=== PATIENT | female | born 1935 | race Caucasian/White ===

== ENCOUNTER 2017-05-05 14:16 | Emergency (ER) | payer MEDICARE, OTHER ==
[~2017-05-05] VITALS: Ht 165.1 cm; Wt 67.1 kg
[~2017-05-05 14:16] MED LIST: ACETAMINOPHEN325 M1 PO; ASPIRIN EC81 MG PO; ATENOLOL100 MG PO; ATENOLOL25 MG PO; ATENOLOL50 MG PO; ATIVAN0.5 MG PO; BABY ASPIRIN81 MG PO; BAZA PROTECT C142 GM TP; BISACODYL10 MG RC; CALCIUM500 MG PO; CEPHALEXIN500 MG PO; CIPRO500 MG PO; CLINDAMYCIN HC300 MG PO; COUMADIN1 MG PO; COUMADIN3 MG PO; COUMADIN5 MG PO; DESYREL50 MG PO; DIGOXIN125 MCG PO; DIGOXIN250 MCG PO; DILANTIN100 MG PO; DILTIAZEM 24HR120 M1 PO; DILTIAZEM HCL120 MG PO; DOCUSATE SODIU100 MG PO; DONEPEZIL HCL10 MG PO; DONEPEZIL HCL5 MG PO; ENSURE ORIGINA237 ML PO; FAMOTIDINE20 MG PO; FENTANYL1 EAC2 TD; FLUOXETINE HCL20 MG PO; FUROSEMIDE20 MG PO; KEFLEX500 MG PO; LEVAQUIN500 MG PO; LEVOTHROID175 MCG PO; LEVOTHYROXINE200 MCG PO; MACROBID 100 M100 MG PO; MACRODANTIN100 MG PO; MELOXICAM15 MG PO; MILK OF MA400 MG/5 M PO; NITROSTAT0.4 MG SL; NORCO 5-325 TA1 EACH PO; OMEPRAZOLE20 M1 PO; ONDANSETRON HCL4 MG PO; PEPCID20 MG PO; PHENYTOIN SODI100 MG; POTASSIUM CHLO10 MEQ PO; PRESERVISION A1 EAC2 PO; PRESERVISION A1 EACH PO; SENNA PLUS TAB1 EACH PO; SENOKOT-S TABL1 EACH PO; SEROQUEL50 MG PO; TRAZODONE HCL50 MG PO; VITAMIN D32000 UNI1 PO; VITAMIN D32000 UNIT PO; WARFARIN SODIU2.5 MG PO; WARFARIN SODIUM1 MG PO; WARFARIN SODIUM5 MG PO; ZOFRAN ODT4 MG PO
== END 2017-05-05 16:20 | disposition home or self-care (01) ==
LOC: ED 14:16
DX: F03.90 Unspecified dementia, unspecified severity, without behavioral disturbance, psychotic disturbance, mood disturbance, and anxiety (principal); I48.91 Unspecified atrial fibrillation; Z86.73 Personal history of transient ischemic attack (TIA), and cerebral infarction without residual deficits; E03.9 Hypothyroidism, unspecified; Z90.49 Acquired absence of other specified parts of digestive tract; Z95.0 Presence of cardiac pacemaker; Z79.899 Other long term (current) drug therapy; Z79.01 Long term (current) use of anticoagulants; Z79.891 Long term (current) use of opiate analgesic
CPT/HCPCS: 81001; 99283

== ENCOUNTER 2017-05-26 17:43 | Emergency (ER) | payer MEDICARE, OTHER ==
[~2017-05-26] VITALS: Ht 165.1 cm; Wt 67.1 kg
== END 2017-05-26 19:05 | disposition home or self-care (01) ==
LOC: ED 17:43
DX: S42.201A Unspecified fracture of upper end of right humerus, initial encounter for closed fracture (principal); I48.91 Unspecified atrial fibrillation; G40.909 Epilepsy, unspecified, not intractable, without status epilepticus; E03.9 Hypothyroidism, unspecified; F03.90 Unspecified dementia, unspecified severity, without behavioral disturbance, psychotic disturbance, mood disturbance, and anxiety; Z86.73 Personal history of transient ischemic attack (TIA), and cerebral infarction without residual deficits; Z90.49 Acquired absence of other specified parts of digestive tract; Z79.01 Long term (current) use of anticoagulants; Z79.899 Other long term (current) drug therapy; Z95.0 Presence of cardiac pacemaker; W18.30XA Fall on same level, unspecified, initial encounter
CPT/HCPCS: 73030; 99283

== ENCOUNTER 2017-06-16 20:25 | Emergency (ER) | payer MEDICARE, OTHER ==
[~2017-06-16] VITALS: Ht 165.1 cm; Wt 67.1 kg
== END 2017-06-16 22:18 | disposition home or self-care (01) ==
LOC: ED 20:25
DX: S09.90XA Unspecified injury of head, initial encounter (principal); I48.91 Unspecified atrial fibrillation; E03.9 Hypothyroidism, unspecified; G40.909 Epilepsy, unspecified, not intractable, without status epilepticus; Z86.73 Personal history of transient ischemic attack (TIA), and cerebral infarction without residual deficits; W18.30XA Fall on same level, unspecified, initial encounter; Z90.49 Acquired absence of other specified parts of digestive tract; Z95.0 Presence of cardiac pacemaker; Z79.899 Other long term (current) drug therapy; Z79.01 Long term (current) use of anticoagulants; Z79.891 Long term (current) use of opiate analgesic
CPT/HCPCS: 70450; 99284

== ENCOUNTER 2017-09-27 20:02 | Emergency (ER) | payer MEDICARE, OTHER ==
[~2017-09-27] VITALS: Ht 165.1 cm; Wt 67.1 kg
== END 2017-09-27 23:51 | disposition home or self-care (01) ==
LOC: ED 20:02
DX: S09.90XA Unspecified injury of head, initial encounter (principal); S00.81XA Abrasion of other part of head, initial encounter; G40.909 Epilepsy, unspecified, not intractable, without status epilepticus; I48.91 Unspecified atrial fibrillation; Z79.01 Long term (current) use of anticoagulants; Z86.73 Personal history of transient ischemic attack (TIA), and cerebral infarction without residual deficits; Z85.00 Personal history of malignant neoplasm of unspecified digestive organ; Z87.440 Personal history of urinary (tract) infections; W18.30XA Fall on same level, unspecified, initial encounter
CPT/HCPCS: 70450; 80053; 85025; 85610; 85730; 99284

== ENCOUNTER 2017-10-29 15:14 | Emergency (ER) | payer MEDICARE, OTHER ==
[~2017-10-29] VITALS: Ht 165.1 cm; Wt 60.3 kg
[2017-10-29] MEDS ORDERED: KEFLEX500 MG PO (17:25)
--- NOTE | 2017-10-29 21:25 | EKG ---
[facility] [address] [facility] [place] [address] Signed Ventricular-paced rhythm Abnormal ECG When compared with ECG of 28-MAR-2017 20:10, Electronic ventricular pacemaker has replaced Atrial fibrillation Confirmed by REBUEN SPENCER MD ([id number]) on 10/29/2017 9:25:06 PM Electronically Signed By: REUBEN SPENCER MD 10/29/17 2125 PATIENT NAME: AZALEA POLLARD JEM Electrocardiogram DATE OF : 35 PHYSICIAN: REUBEN SPENCER MD REPORT #: [id number] REPORT IS CONFIDENTIAL AND NOT TO BE RELEASED WITHOUT AUTHORIZATION
== END 2017-10-29 18:05 | disposition home or self-care (01) ==
LOC: ED 15:14
PROC: 0T9B70Z Drainage of Bladder with Drainage Device, Via Natural or Artificial Opening (ICD-10-PCS; principal; 2017-10-29)
DX: N39.0 Urinary tract infection, site not specified (principal); R53.1 Weakness; I48.91 Unspecified atrial fibrillation; G40.909 Epilepsy, unspecified, not intractable, without status epilepticus; E03.9 Hypothyroidism, unspecified; Z87.440 Personal history of urinary (tract) infections; Z90.49 Acquired absence of other specified parts of digestive tract; Z95.0 Presence of cardiac pacemaker; Z79.01 Long term (current) use of anticoagulants; Z86.73 Personal history of transient ischemic attack (TIA), and cerebral infarction without residual deficits; Z79.899 Other long term (current) drug therapy; Z85.00 Personal history of malignant neoplasm of unspecified digestive organ; Z98.890 Other specified postprocedural states
CPT/HCPCS: 51701; 71045; 80053; 80162; 80185; 81001; 84484; 85025; 85610; 87502; 93005; 93010; 96360; 99284; G0480; J7040

== ENCOUNTER 2017-11-29 17:22 | Emergency (ER) | payer MEDICARE, OTHER ==
[~2017-11-29] VITALS: Ht 165.1 cm; Wt 60.3 kg
[2017-11-29] MEDS ORDERED: NORCO 5-325 TA1 EACH PO (17:58)
== END 2017-11-29 20:00 | disposition home or self-care (01) ==
LOC: ED 17:22
PROC: 0T9B70Z Drainage of Bladder with Drainage Device, Via Natural or Artificial Opening (ICD-10-PCS; principal; 2017-11-29)
DX: Z04.3 Encounter for examination and observation following other accident (principal); F03.90 Unspecified dementia, unspecified severity, without behavioral disturbance, psychotic disturbance, mood disturbance, and anxiety; E03.9 Hypothyroidism, unspecified; G40.909 Epilepsy, unspecified, not intractable, without status epilepticus; I48.91 Unspecified atrial fibrillation; Z79.01 Long term (current) use of anticoagulants; Z79.899 Other long term (current) drug therapy; W01.10XA Fall on same level from slipping, tripping and stumbling with subsequent striking against unspecified object, initial encounter
CPT/HCPCS: 51701; 70450; 81001; 99284

== ENCOUNTER 2018-02-04 15:17 | Emergency (ER) | payer MEDICARE, OTHER ==
[~2018-02-04] VITALS: Ht 165.1 cm; Wt 58.5 kg
[2018-02-04] MEDS ORDERED: KEFLEX500 MG PO (16:32)
== END 2018-02-04 17:21 | disposition home or self-care (01) ==
LOC: ED 15:17
PROC: 0T9B70Z Drainage of Bladder with Drainage Device, Via Natural or Artificial Opening (ICD-10-PCS; principal; 2018-02-04)
DX: N39.0 Urinary tract infection, site not specified (principal); F03.90 Unspecified dementia, unspecified severity, without behavioral disturbance, psychotic disturbance, mood disturbance, and anxiety; Z79.899 Other long term (current) drug therapy
CPT/HCPCS: 51701; 70450; 81001; 87077; 87088; 87186; 96372; 99284; J0696

== ENCOUNTER 2018-02-13 10:34 | Inpatient (IN) | payer MEDICARE, OTHER ==
[~2018-02-13] VITALS: Ht 165.1 cm; Wt 66.3 kg
--- NOTE | 2018-02-13 17:50 | NUR ---
PT ARRIVED VIA STRETCHER FROM ED. NON VERBAL AND SEVERE DEMENTIA. PT'S DAUGHTER SURYA AT BEDSIDE TO ASSIST WITH QUESTIONS.
[2018-02-13] MEDS ORDERED: WARFARIN SODIUM2 MG PO (18:16)
--- NOTE | 2018-02-13 19:00 | NUR ---
RECEIVED REPORT FROM RN. PATIENT IS RESTING IN BED, BREATHING IS EVEN AND UNLABORED. O2 SATURATION IS 94% ON L O2 VIA NC. FLACC SCORE OF 0. DAUGHTER AT BEDSIDE AND STATES "SHE LOOKS VEY COMFORTABLE TO ME." FAMILY DENIES NEEDS AT THIS TIME. CALL LIGHT WITHIN REACH.
--- NOTE | 2018-02-13 19:07 | NUR ---
Patient's INR at admission = 1.3. Verified that patient did not missed any doses. Will give warfarin 4mg today as a booster dose. Patient's home warfarin dose is 2mg every day
--- NOTE | 2018-02-13 19:21 | NUR ---
Medications reconciled with Aisha NEWBY and patient's daughter interview
--- NOTE | 2018-02-13 19:22 | NUR ---
Patient vomited this morning shortly after taking morning medications. Questionable degree of absorption.
--- NOTE | 2018-02-13 19:45 | NUR ---
PATIENT RESTING IN BED, BREATHING IS EVEN AND UNLABORED. ASSESSMENT DONE, REPOSITIONED FOR COMFORT. FLACC SCORE OF 0. IV FLUIDS INFUSING. FAMILY DENIES NEEDS AT THIS TIME. CALL LIGHT WITHIN REACH.
--- NOTE | 2018-02-13 20:30 | NUR ---
PATIENT RESTING IN BED, BREATHING IS EVEN AND UNLABORED. FLACC SCORE OF 0. MEDICATIONS GIVEN. FAMILY DENIES FURTHER NEEDS. CALL LIGHT WITHIN REACH.
--- NOTE | 2018-02-13 22:08 | EKG ---
[facility] [address] [facility] [place] [address] Signed Atrial fibrillation with rapid ventricular response Nonspecific ST and T wave abnormality Abnormal ECG When compared with ECG of 29-OCT-2017 16:20, Atrial fibrillation has replaced Electronic ventricular pacemaker Confirmed by REUBEN SPENCER MD ([id number]) on 02/13/2018 10:07:49 PM Electronically Signed By: REUBEN SPENCER MD 02/13/18 2208 PATIENT NAME: AZALEA POLLARD Electrocardiogram DATE OF : 35 PHYSICIAN: REUBEN SPENCER MD REPORT #: [id number] REPORT IS CONFIDENTIAL AND NOT TO BE RELEASED WITHOUT AUTHORIZATION
--- NOTE | 2018-02-13 22:45 | NUR ---
PATIENT RESTING IN BED, BREATHING IS EVEN AND UNLABORED. FLACC SCORE OF 0. APPEARS TO BE ASLEEP. CALL LIGHT WITHIN REACH.
--- NOTE | 2018-02-14 00:01 | NUR ---
SLEEPS OFF AND ON. WILL OCC STRIKE OUT AT STAFF BUT THEN WILL CALM AND AT TIMES IS EASILY CONSOLED WITH HAND HOLDING. REPOSITIONED.
--- NOTE | 2018-02-14 02:00 | NUR ---
PATIENT RESTING IN BED, BREATHING IS EVEN AND UNLABORED. FLACC SCORE OF 0. APPEARS TO BE ASLEEP. CALL LIGHT WITHIN REACH.
--- NOTE | 2018-02-14 04:23 | NUR ---
PT HAS TURNED SELF TO BACK. BREATHS THROUGH MOUTH SO TOUNGUE IS VERY DRY. FELL BACK TO SLEEP
--- NOTE | 2018-02-14 06:04 | NUR ---
ATTEMPTED TO GIVEN SOAP SUDS ENEMA. PT WAS COMBATIVE. WAS UNABLE TO HOLD THE FLUID. STOOL NOTED TO BE VERY SOFT ON THE TUBING AND RECTAL DONE AFTERWARD NO STOOL NOTED IN RECTUM. LINEN CHANGED. PT CALMED AFTERWARD WHEN LEFT ALONE. WHEN PT IS UPSET WILL HIT AT STAFF AND MAKES FACES STICKING TONGUE OUT AT STAFF.
--- NOTE | 2018-02-14 08:03 | NUR ---
PT AWAKE, DRIVER LICENSE AGENT REPORTED IV IN LEFT HAND DC'D WITH CATH INTACT AFTER NOTING INFILTRATION. PT UP TO BSC WITH 2 PERSON ASSIST, UNABLE TO HAVE BM BUT HAS SMEARS OF STOOL. ASSESSMENT COMPLETED AND SPONGE BATH GIVEN, PT TRANSFERRED TO ANA CHAIR WITH 2 PERSON ASSIST, RESTING WITH LOWER EXTREMITIES ELEVATED AND PILLOWS UNDER EACH ARM. PT SHANON WELL.
--- NOTE | 2018-02-14 09:42 | NUR ---
PT ATE A FEW BITES OF BREAKFAST AND WAS ABLE TO AM PILLS. RETURNED TO BED WITH 2 PERSON ASSIST. LEONARDO CARE COMPLETED AND HAND & NAIL CARE ALSOB COMPLETED. 18 GAUGE 2.5 " INSERTED IN LEFT AC BY Earnest CADENA RN.. IV INFUSING WITHOUT PROBLEMS.
--- NOTE | 2018-02-14 09:52 | NUR ---
DAUGHTER IN TO VISIT WITH PT.
--- NOTE | 2018-02-14 11:36 | NUR ---
DULCOLAX SUPPOSITORY GIVEN PER DR. DODSON. PT SHANON WELL. ASSESSMENT COMPLETED, PT RESTING ON LEFT SIDE WITH HOB SLIGHTLY ELEVATED.
--- NOTE | 2018-02-14 12:42 | NUR ---
RECIEVED REPORT VIA TELEPHONE FROM LAUREANO ALVES.
--- NOTE | 2018-02-14 12:57 | NUR ---
REPORT GIVEN TO NADEGE Casillas ON MED/SURG. ATTENDS CHANGED AND PT TRANSFERRED TO ROOM 120 VIA BED.
--- NOTE | 2018-02-14 13:23 | NUR ---
PT TRANSFERED TO FLOOR VIA RECLINER ACCOMPANIED BY LAUREANO SOUSA AT 1300. PT RESTLESS, TRYING TO SCOOT OUT OF RECLINER, PULLING ON IV LINE, THEN ON GAMBINO CATHETER LINE, BOTH REMAIN INTACT. REDIRECTED PT. PT'S DAUGHTER AT BEDSIDE. THIS RN AND MAUDE ARAYA ASSISTED PT UP TO BEDSIDE COMMODE, PT HAD HAD A SMALL LOOSE BM IN ATTENDS, THEN HAD SMALL SOFT TO LOOSE BM IN COMMODE. PT ASSISTED TO CLEAN UP, TRANSFERED BACK TO RECLINER WITH ASSISTANCE FROM THIS RN AND MAUDE ARAYA. PT NOW LESS RESTLESS, IS TAKING BITES OF MASHED POTATOES AND GRAVY FROM DAUGHTER, AND TAKING SIPS OF CHOCOLATE ENSURE. CHAIR ALARM ON, UNDER PT.
--- NOTE | 2018-02-14 13:41 | NUR ---
PT DRINKING CHOCOLATE ENSURE USING STRAW WITH ASSIST FROM DAUGHTER. TOLERATING WELL. PT CALM, NO RESTLESSNESS OR AGITATION NOTED.
--- NOTE | 2018-02-14 13:49 | NUR ---
PATIENT SITTING UP IN CHAIR. PATIENTS DAUGHTER IN ROOM. CALL LIGHT WITHIN REACH. NO OTHER NEEDS AT THIS TIME.
--- NOTE | 2018-02-14 14:37 | NUR ---
PT TOOK PO BISACODYL 5 MG SCHEDULED, WITH APPLESAUCE. PT SITTING UP IN RECLINER. PT'S DAUGHTER AT SIDE.
--- NOTE | 2018-02-14 16:23 | NUR ---
This SIMPLEX OPERATOR and MAUDE Hernandez assisted patient up to bedside commode. Patient had medium bowel movement. Patient wiped down with warm wash cloth. Pericare, and Cathcare performed by MAUDE Hernandez. Patient dressed in clean gown. Perkins drained. Linens changed. Patient transferred with three person assist to bed. Patient has difficulty communicating and expressing words at times. This SIMPLEX OPERATOR provided warm wash cloth, patient's daughter washed patients face and hands at patients request. Chapstick applied to patients lips. Patient resting in bed with daughter in room. Call light in reach. No other needs at this time.
--- NOTE | 2018-02-14 17:47 | NUR ---
I&O AND VITALS DONE RN IN ROOM GAMBINO EMPTIED GARBAGE EMPTIED
--- NOTE | 2018-02-14 17:50 | NUR ---
PT ATE 25% OF DINNER. DRANK 100% OF CHOCOLATE ENSURE. PT ALSO DRANK 100% OF CHOCOLATE ENSURE THIS AFTERNOON. IS IN BED, CALM, EYES OPEN. REQUIRED ASSISTANCE WITH HOLDING GLASS STEADY WHEN DRINKING, TO PREVENT SPILLS, BUT PT HELD CUP WHEN DRINKING. PT NON VERBAL, NO S/S DISTRESS OR DISCOMFORT NOTED. PERSONAL SUPPLIES AND CALL LIGHT IN REACH. CURTAIN AND DOOR OPEN, PT'S ROOM CLOSE TO NURSES' STATION FOR CLOSE OBSERVATION, PT IS CONFUSED AND NON VERBAL AT BASELINE.
--- NOTE | 2018-02-14 18:24 | NUR ---
THIS MARZIPAN MAKER WALKED BY PATIENTS ROOM AND SAW PATIENT'S LEGS OVER THE BED RAIL AND PATIENT WAS LEANING TO GET OUT OF BED. THIS MARZIPAN MAKER CALLED FOR ASSISTANCE AND HELD PATIENTS LEGS TO PREVENT FALLING. RN AND THIS MARZIPAN MAKER REPOSITIONED PATIENT INTO BED. THIS MARZIPAN MAKER NOTICED PATIENT FELT WARM TO TOUCH AND SKIN LOOKED FLUSHED. RN TOOK ORAL TEMP. RN PLACED SEIZURE PAD ON FLOOR OF BEDSIDE AND INSTRUCTED THIS MARZIPAN MAKER TO PLACE SEIZURE PAD ON BED RAILING. BED ALARM ON. RN REQUESTED IT STAY ON EXITING SETTING. PATIENT APPEARED DISTRESSED AND EXIT SEEKING. RN NOTIFIED. PATIENT CALL LIGHT IN REACH. NO OTHER NEEDS AT THIS TIME.
--- NOTE | 2018-02-14 18:28 | NUR ---
PT TRANSFERED FROM CCU TO ROOM 120 THIS AFTERNOON. PT NON VERBAL, MAKES SOUNDS. UNABLE TO ASSESS PT'S ORIENTATION LEVEL. PT'S MOOD RANGED FROM AGITATED AND RESTLESS TO CALM AND COOPERATIVE. 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 PT UP FOR TRANSFERS FROM RECLINER OR BED TO BEDSIDE COMMODE WITH 2 PERSON ASSIST. PT HAS D5LR @ 100 INFUSING. PT HAS HAD SEVERAL MEDIUM, LOOSE BROWN STOOLS. PT INCONTINENT AND USING BEDSIDE COMMODE. HAS GAMBINO CATHETER INTACT, DRAINING CLEAR YELLOW URINE. LUNGS CTA, PT ON RA. HR IRREGULAR, 80s-90s. PT HAS PACER. BED AND CHAIR ALARM USED.
--- NOTE | 2018-02-14 19:24 | NUR ---
IN ROOM FOR REPORT, PT IS AWAKE IN BED AND SHE HAS A VISITOR IN THE ROOM. CALL LIGHT IS WITHIN REACH AND BED ALARM IS ON.
--- NOTE | 2018-02-14 23:01 | NUR ---
ASSESSED PT, SHE IS AWAKE IN BED AT THIS TIME. SHE OCCASIONALLY ANSWERS "YEAH". HER ABDOMEN IS FIRM AND BOWEL TONES ARE HYPERACTIVE. REPOSITIONED PT TO GIVE MEDICATIONS AND SHE YELLS OUT AT STAFF. WILL ATTEMPT TO GIVE PO MEDS.
--- NOTE | 2018-02-14 23:46 | NUR ---
PT IS AWAKE IN BED, SHE DRANK SOME CHOCOLATE ENSURE AND WATER. SHE IS MORE COOPERATIVE AT THIS TIME. CALL LIGHT IS WITHIN REACH AND BED ALARM IS ON.
--- NOTE | 2018-02-15 01:31 | NUR ---
PT IS RESTING WITH EYES CLOSED, RESPIRATIONS ARE EVEN AND NONLABORED. CALL LIGHT IS WITHIN REACH AND BED ALARM IS ON.
--- NOTE | 2018-02-15 03:00 | NUR ---
PT IS AWAKE IN BED AT THIS TIME. BED ALARM IS ON AND CALL LIGHT IS WITHIN REACH.
--- NOTE | 2018-02-15 03:57 | NUR ---
ENTERED PT'S ROOM TO FIND THAT SHE HAD PULLED HER GAMBINO CATHETER OUT AND HAD A SMALL BM AND HAD PULLED HER ATTENDS OFF. CLEANED PT UP AND REPOSITIONED PT IN BED. CATH BALLOON WAS INTACT AND PT PULLED OFF STATLOCK WELL. BED ALARM IS ON AND CALL LIGHT IS WITHIN REACH.
--- NOTE | 2018-02-15 05:43 | NUR ---
PT IS AWAKE IN BED, CHANGED PT'S ATTENDS. ATTEMPTED TO GIVE THYROID MEDICATION BUT PT WILL NOT TAKE IT AT THIS TIME. WILL ATTEMPT AGAIN IN A LITTLE WHILE.
--- NOTE | 2018-02-15 09:00 | NUR ---
PATIENT INCONT OF STOOL IN BED. THIS PETROLEUM ENGINEERING PROFESSOR, LAUREANO GALVAN, AND STUDENT NURSE ASSISTED PATIENT TO SHOWER. LEONARDO CARE, SHAMPOO, LINEN CHANGE DONE. PATIENT INCONT OF STOOL WHILE IN SHOWER. PATIENT TOLARATED SHOWER WELL.
--- NOTE | 2018-02-15 09:00 | NUR ---
PATIENT HAD A LARGE LIQUID BM IN THE BED, ASSISTED PATIENT UP TO THE SHOWER CHAIR FOR A SHOWER AND LINEN CHANGED AT THIS TIME. LEONARDO CARE DONE AND HAIR WASHED. PATIENT HAD MULTIPLE MORE STOOLS IN THE SHOWER.
--- NOTE | 2018-02-15 10:00 | NUR ---
PATIENT TO TOILET FROM SHOWER CHAIR FOR AN ENEMA. RN AND STUDENT NURSE IN BATHROOM WITH PATIENT. PATIENT BACK TO BED. BED ALARM ON AND WARM BLANKET GIVEN.
--- NOTE | 2018-02-15 10:02 | NUR ---
PATIENT HAD ENEMA AND ANOTHER LOOSE STOOL IN THE TOILET. PATIENT ASSISTED BACK TO BED AND SAT UP AND FED HER BREAKFAST.
--- NOTE | 2018-02-15 10:11 | NUR ---
DOCTOR SPENCER IN THE ROOM TO SEE THE PATIENT AT THIS TIME
--- NOTE | 2018-02-15 10:51 | NUR ---
PATIENT TAKEN TO XRAY FOR A KUB AT THIS TIME
--- NOTE | 2018-02-15 11:00 | NUR ---
PATIENT DOWN TO XRAY.
--- NOTE | 2018-02-15 11:46 | NUR ---
PATIENT SITTING UP IN THE CHAIR LOOKING AT A MAGAZINE WITH HER DAUGHER. LUNCH ORDERED AT THIS TIME.
--- NOTE | 2018-02-15 12:40 | NUR ---
PATIENT INCONT OF STOOL THIS CARE SPECIALIST AND LAUREANO GALVAN ASSISTED WITH ATTENDS CHANGE AND LEONARDO CARE THEN BACK TO CHAIR. PATIENTS DAUGHTER IN ROOM.
--- NOTE | 2018-02-15 12:47 | NUR ---
SUPPOSITORY GIVEN, LIQUID STOOL PRESENT UPON INSERTION OF SUPPOSITORY. WET ATTEND CHANGED AT THIS TIME. DAUGHTER ATTEMPTED TO FEED PATIENT WITH NO SUCCESS.
--- NOTE | 2018-02-15 13:18 | NUR ---
PATIENT HAD A LOOSE BM, ATTEND CHANGED LEONARDO CARE DONE AND PATIENT MOVED TO THE COMMODE, SHE HAD A SMALL SOFT BM AND THEN SHE WAS TRANSFERRED TO THE BED.
--- NOTE | 2018-02-15 14:09 | NUR ---
RN AND EXTRACORPOREAL CIRCULATION SPECIALIST IN ROOM WITH THE PATIENT TO CHANGE HER ATTENDS.
--- NOTE | 2018-02-15 14:18 | NUR ---
CHECKED PATIENT'S ATTEND AT THIS TIME, NO RESULTS, PATIENT RESTING ON HER LEFT LATERAL SIDE, RAILS UP, SEIZURE PADS ON THE BED AND ON THE FLOOR. BED IN THE LOW POSITION AND ALARM ON THE BED TURNED ON.
--- NOTE | 2018-02-15 15:14 | NUR ---
PATIENT TURNED FROM SIDE TO SIDE AND DIRTY ATTEND CHANGED. WHEN WIPING PATIENT SHE KICKED AT STAFF AND GRABBED AT HER DAUGHTER AND RN. PATIENT VERY AGGRESSIVE WITH ATTEND CHANGE OR ANY INTERACTION AT THIS TIME.
--- NOTE | 2018-02-15 16:35 | NUR ---
THE PATIENT HAS HAD MULTIPLE SMALL LOOSE BM'S TODAY BUT ACCORDING TO THIS AM'S KUB STILL HAS ALOT OF IMPACTION HIGH IN THE BOWELS. HER BOWEL SOUNDS ARE HYPOACTIVE. SHE HAS NOT HAD AN APPETITE TODAY. SHE PULLED OUT HER GAMBINO LAST NIGHT SO SHE HAS BEEN INCONTENENT OF URINE AND BOWEL TODAY. THE PATIENT HAS RECEIVED A SUPPOSITORY, ENEMA, AND STOOL SOFTNERS WITH MINIMAL RESULTS AFTER EACH OF THEM. DAUGHTER HAS BEEN IN THE ROOM AND IS ALOT OF HELP DUE TO THE PATIENT BEING NONVERBAL.
--- NOTE | 2018-02-15 16:55 | NUR ---
PATIENT FEEDING HERSELF WHAT SHE CAN EAT, HER DAUGHTER IS ALSO ASSISTING HER WITH DINNER, IV ABX HUNG AND RUNNING.
--- NOTE | 2018-02-15 17:30 | NUR ---
PATIENT UP OUT OF BED TO BATHROOM WITH 3 PERSON ASISST. PATIENT GOT UP SET SCREAMED AND THREW HER ARMS AT STAFF WHILE CLEANING HER OFF FROM BM INCONT. PATIENT'S IV SITE INFILTRATED LAUREANO GALVAN REMOVED IV. PATIENT BACK TO BED WHERE STAFF CONTINUED LEONARDO CARE. WARM BLANKET GIVEN. PATIENT CALMED DOWN AND IS RESTING WITH EYES CLOSED. BED ALARM ON. PATIENTS DAUGHTER IN ROOM WITH PATIENT.
--- NOTE | 2018-02-15 17:54 | NUR ---
PATIENT HAD A LARGE LOOSE STOOL, MORE ON THE FLOOR ON THE WAY TO THE BATHROOM. PATIENT AMBULATED WITH 2 PERSON ASSIST FAIRLY WELL. SHE HAD A 3RD BM IN THE TOILET LEONARDO CARE DONE AND FLOOR CLEANED UP. IV IN THE LEFT ARM INFILTRATED. IV REMOVED TIP INTACT. WARM COMPRESS APPLIED. PATIENT THEN TAKEN BACK TO THE BATHROOM FOR A 4TH BM. ALL OF THE STOOL WAS LOOSE WITH 1 LARGE CLUMP IN THE MIDDLE. LINEN CHANGED. GARBAGE IN THE ROOM EMPTIED. NEW IV STARTED IN THE UPPER RIGHT ARM #20 GUAGE.
[2018-02-15] MEDS ORDERED: CEFPODOXIME PR200 MG PO (19:26)
[2018-02-15] MEDS ORDERED: SENNA PLUS TAB1 EACH PO (19:27)
[2018-02-15] MEDS ORDERED: MINERAL OIL EN133 ML PR (19:28)
--- NOTE | 2018-02-15 20:02 | NUR ---
PT AGGITATED, KICKING LEGS OVER SIDE RAILS. REASSURED PT WE WOULD GET HER UP TO THE BATHROOM. SHE SEEMED TO SETTLE DOWN, WITH HELP OF 2 CHARACTER ACTRESS'S, PT WAS GOTTEN UP TO THE COMMODE, PT ASSISTED WITH THE TRANSFER, ABLE TO BEAR WEIGHT, AND FOLLOW DIRECTION. HAD A BM IN THE COMMODE, WELL INCONT BM. ASSISTED BACK TO BED WITH CLEAN BEDDING, AND ATTENDS. PT LAYED WITH EYES CLOSED, ONCE BACK TO BED. IV RIGHT SHOULDER INFUSING PER ORDER, BED RAILS UP, FALL MAT ON FLOOR, AND BED ALARM ON.
--- NOTE | 2018-02-15 21:21 | NUR ---
up to bsc with 3 people assist, continues to have liquid bms. red roz area, lotions to area, pt back to bed, tolerated well. nonverbal, aggressive at times, bed alrm on
--- NOTE | 2018-02-15 22:05 | NUR ---
UP TO BSC USING 3 PEOPLE ASSIST, HAD LIQUID STOOL, SKIN CARE DONE, BACK TO BED, REPOSITIONED IN BED, SEMICOOPERATIVE. BED ALARM ON
--- NOTE | 2018-02-15 23:23 | NUR ---
INCONTINENT OF BOWEL IN BED, SKIN CLEANSED, LINEN AND GOWN CHANGED, PROCEDURE EXPLAINED, PT NOT COOPERATIVE DUE TO CONFUSION
--- NOTE | 2018-02-16 00:34 | NUR ---
RESTING, NO DISTRESS AT THIS TIME, BED ALARM, SEIZURE PADS IN BEDRAILS AND FLOOR IN PLACE
--- NOTE | 2018-02-16 03:31 | NUR ---
AWAKE, MOVING AROUND IN BED. INCONTINENT OF URINE AND BOWEL, UP TO BSC WITH 3 PERSON ASSIST, PROCEDURE EXPLAINED, PT UNABLE TO PROCESS INFORMATION DUE TO DEMENTIA, COOPERATIVE AT TIMES AND AT OTHERS WAS VERY AGGRESSIVE, TRYING TO BITE THIS RN, PULLING MY HAIR AND TRYING TO SCRATCH THIS RN. REDIRECTED. SKIN CARE TO RED AREA BETWEEN BUTTOCKS APPLIED, CLEAN ATTENDS IN PLACE, BACK TO BED, TOLERATED WELL. IVF INFUSING. LEGS ELEVATED, SEIZURE AND HIGH FALL PRECAUTIONS IN PLACE
--- NOTE | 2018-02-16 05:19 | NUR ---
Pt has had multiple liquids bm this shift. Has been incontinent of both bowel and bladder and upt o bsc with 3 people assist. Skin lotion to red buttocks area. All procedures explained to pt. Pt unable to be assess information due to cognitive deficiencies. Has been cooperative and aggressive at times, easily redirectable. Currently in bed resting, has slept 3-4 hours off and on thsi shift. Took meds with applesauce, spit water back at nurse. Sob present with exertion at times, on room air.
--- NOTE | 2018-02-16 06:27 | NUR ---
Dr Ray notified of pts pulling her own iv, "Ok to leave it out" stated
--- NOTE | 2018-02-16 06:41 | NUR ---
PT INCONTINENT OF URINE AND LIQUID BM. BED LINEN, GOWN AND ATTENDS CHANGED, SKIN CARE TO RED LEONARDO AREA APPLIED. PT MORE COOPERATIVE AT THIS TIME. ALL PROCEDURES EXPLAINED TO PT, UNABLE TO ASSESS INFO RECEIVED DUE TO COGNITIVE CHANGES
--- NOTE | 2018-02-16 07:50 | NUR ---
BEDSIDE REPORT RECEIVED FROM JANETTE. ASSUMING PATIENT'S CARE AT THIS TIME. PATIENT RESTING IN BED APPEARED TO BE SLEEPING DURING REPORT. SEIZURE PAD IN PLACE. NO APPAREN DISTRESS NOTED. RR EVEN/UNLABORED.
--- NOTE | 2018-02-16 09:20 | NUR ---
PATIENT RESTING IN BED, NON-VERBAL. PATIENT IS ABLE TO NOD HEAD WHEN TALKING TO. SHIFT ASSESSMENT DONE. ACTIVE BOWEL TONES. TRACE EDEMA NOTED IN THE LOWER EXTREMITIES. PATIENT WAS ABLE TO TAKE HER MORNING MEDS WITH PUDDING WITH A LOT OF COACHING. PATIENT CLEANED EARLIER BY LAUREANO GALVAN AND MAUDE EATON. RESTING IN BED AT THIS TIME. HOB ELEVATED. NO IV SITE AND MD IS AWARE OF THAT. CALL LIGHT IN REACH. BED ALARM ON.
--- NOTE | 2018-02-16 09:41 | NUR ---
VITALS AND I/OS DONE, IN RM WITH LAUREANO HERRON, GIVING MEDS. PATIENT TOOK ONE BITE OF BREAKFAST. CALL LIGHT IN REACH
--- NOTE | 2018-02-16 10:42 | NUR ---
PATIENT RESTING IN BED AWAKE. PATIENT IN NO-VERBAL. CHECKED DEPEND AND BED, NO NEED TO CHANGE AT THIS TIME. WILL CONTINUE TO MONITOR
--- NOTE | 2018-02-16 11:46 | NUR ---
PATIENT RESTING IN BED, DAUGHTER AT BEDSIDE. UPDATED DAUGHTER ON HOW PATIENT DID OVERNIGHT. PATIENT IS AWAKE. NO DISTRESS NOTED
[2018-02-16] MEDS ORDERED: MILK OF MA400 MG/5 M PO (12:12)
[2018-02-16] MEDS ORDERED: SUPPOSITORY1 EACH PR (12:12)
--- NOTE | 2018-02-16 14:45 | NUR ---
PT RESTING IN BED WITH STUFFED ANIMAL BY HER SIDE. DAUGHTER SLICK PRESENT, READING TO PT. PT IS NON-VERBAL, SLICK BELIEVES PT CAN HEAR AND UNDERSTAND, BUT IS UNABLE TO SPEAK. PT SMILES AND SEEMS HAPPY. DAUGHTER REQUESTED PRAYER, WILL CONTINUE TO FOLLOW NEEDED
== END 2018-02-16 13:20 | disposition home or self-care (01) | DRG 872 ==
LOC: ED 10:34 → CCU 17:16 → MS 02-14 13:11
PROVIDERS: ADMIT Internal Medicine
DX: A41.51 Sepsis due to Escherichia coli [E. coli] (principal); N39.0 Urinary tract infection, site not specified; F03.91 Unspecified dementia, unspecified severity, with behavioral disturbance; R65.20 Severe sepsis without septic shock; K59.09 Other constipation; R14.0 Abdominal distension (gaseous); I48.2 Chronic atrial fibrillation; Z79.01 Long term (current) use of anticoagulants; G40.909 Epilepsy, unspecified, not intractable, without status epilepticus; E03.9 Hypothyroidism, unspecified; K21.9 Gastro-esophageal reflux disease without esophagitis; F39 Unspecified mood [affective] disorder; Z86.73 Personal history of transient ischemic attack (TIA), and cerebral infarction without residual deficits; Z95.0 Presence of cardiac pacemaker
CPT/HCPCS: 36415; 71045; 74018; 74177; 80048; 80053; 80162; 80185; 81001; 83605; 83690; 83735; 85025; 85610; 87040; 87077; 87186; 93005; 93010; J0696; J2405; J3475; J7030; J7040; J7120; Q9967

== ENCOUNTER 2018-04-27 10:18 | Emergency (ER) | payer MEDICARE, OTHER ==
[~2018-04-27 10:18] MED LIST changes: +CEFPODOXIME PR200 MG PO; +MINERAL OIL EN133 ML PR; +SUPPOSITORY1 EACH PR; +WARFARIN SODIUM2 MG PO
== END 2018-04-27 12:15 | disposition home or self-care (01) ==
LOC: ED 10:18
PROC: 0T9B70Z Drainage of Bladder with Drainage Device, Via Natural or Artificial Opening (ICD-10-PCS; principal; 2018-04-27)
DX: S09.90XA Unspecified injury of head, initial encounter (principal); S00.01XA Abrasion of scalp, initial encounter; F03.90 Unspecified dementia, unspecified severity, without behavioral disturbance, psychotic disturbance, mood disturbance, and anxiety; I48.2 Chronic atrial fibrillation; E03.9 Hypothyroidism, unspecified; G40.909 Epilepsy, unspecified, not intractable, without status epilepticus; Z79.01 Long term (current) use of anticoagulants; Z79.899 Other long term (current) drug therapy; W18.30XA Fall on same level, unspecified, initial encounter
CPT/HCPCS: 51701; 70450; 80053; 81001; 85025; 85610; 99284

== ENCOUNTER 2018-06-17 21:52 | Emergency (ER) | payer MEDICARE, OTHER ==
[~2018-06-17] VITALS: Ht 165.1 cm; Wt 66.3 kg
[2018-06-18] MEDS ORDERED: CEPHALEXIN500 MG PO (00:43)
[2018-06-18] MEDS ORDERED: ATENOLOL25 MG PO (17:27)
[2018-06-18] MEDS ORDERED: QUETIAPINE FUMA50 MG PO (17:44)
[2018-06-18] MEDS ORDERED: PHENYTOIN SODI100 MG PO (17:45)
[2018-06-18] MEDS ORDERED: OMEPRAZOLE20 MG PO (17:45)
[2018-06-18] MEDS ORDERED: LEVOXYL200 MCG PO (17:47)
[2018-06-18] MEDS ORDERED: NORCO 5-325 TA1 EACH PO (17:48)
[2018-06-18] MEDS ORDERED: FLUOXETINE HCL20 M1 PO (17:49)
[2018-06-19] MEDS ORDERED: CALCIUM500 M1 PO (10:36)
[2018-06-19] MEDS ORDERED: DIGOXIN250 MCG PO (10:38)
[2018-06-19] MEDS ORDERED: COLACE100 MG PO (10:39)
[2018-06-19] MEDS ORDERED: ARICEPT10 MG PO (10:40)
[2018-06-19] MEDS ORDERED: PHENYTOIN SODI100 MG PO (10:43)
[2018-06-19] MEDS ORDERED: PRESERVISION A1 EACH PO (10:44)
[2018-06-19] MEDS ORDERED: VITAMIN D32000 UNIT PO (10:48)
[2018-06-19] MEDS ORDERED: ADULT GLYCERIN1 EACH PR (10:50)
[2018-06-19] MEDS ORDERED: MILK OF MA400 MG/5 M PO (10:51)
[2018-06-19] MEDS ORDERED: MINERAL OIL EN133 ML PR (10:52)
[2018-06-19] MEDS ORDERED: PREPARATION H C26 GM PR (10:55)
[2018-06-19] MEDS ORDERED: SENNA-DOCUSATE1 EAC1 PO (10:56)
[2018-06-19] MEDS ORDERED: COUMADIN3 MG PO (10:57)
[2018-06-19] MEDS ORDERED: KEFLEX500 MG PO (10:59)
== END 2018-06-18 01:26 | disposition home or self-care (01) ==
LOC: ED 21:52
PROC: 0T9B70Z Drainage of Bladder with Drainage Device, Via Natural or Artificial Opening (ICD-10-PCS; principal; 2018-06-17)
DX: S00.83XA Contusion of other part of head, initial encounter (principal); W18.30XA Fall on same level, unspecified, initial encounter; I48.91 Unspecified atrial fibrillation; G43.909 Migraine, unspecified, not intractable, without status migrainosus; E03.9 Hypothyroidism, unspecified; F03.90 Unspecified dementia, unspecified severity, without behavioral disturbance, psychotic disturbance, mood disturbance, and anxiety; Z79.899 Other long term (current) drug therapy; Z79.01 Long term (current) use of anticoagulants
CPT/HCPCS: 51701; 70450; 80053; 81001; 85025; 85610; 99284

== ENCOUNTER 2018-06-18 02:39 | Emergency (ER) | payer MEDICARE, OTHER ==
[~2018-06-18] VITALS: Ht 165.1 cm; Wt 66.3 kg
[2018-06-18] MEDS ORDERED: ATENOLOL25 MG PO (17:27)
[2018-06-18] MEDS ORDERED: QUETIAPINE FUMA50 MG PO (17:44)
[2018-06-18] MEDS ORDERED: PHENYTOIN SODI100 MG PO (17:45)
[2018-06-18] MEDS ORDERED: OMEPRAZOLE20 MG PO (17:45)
[2018-06-18] MEDS ORDERED: LEVOXYL200 MCG PO (17:47)
[2018-06-18] MEDS ORDERED: NORCO 5-325 TA1 EACH PO (17:48)
[2018-06-18] MEDS ORDERED: FLUOXETINE HCL20 M1 PO (17:49)
[2018-06-19] MEDS ORDERED: CALCIUM500 M1 PO (10:36)
[2018-06-19] MEDS ORDERED: DIGOXIN250 MCG PO (10:38)
[2018-06-19] MEDS ORDERED: COLACE100 MG PO (10:39)
[2018-06-19] MEDS ORDERED: ARICEPT10 MG PO (10:40)
[2018-06-19] MEDS ORDERED: PHENYTOIN SODI100 MG PO (10:43)
[2018-06-19] MEDS ORDERED: PRESERVISION A1 EACH PO (10:44)
[2018-06-19] MEDS ORDERED: VITAMIN D32000 UNIT PO (10:48)
[2018-06-19] MEDS ORDERED: ADULT GLYCERIN1 EACH PR (10:50)
[2018-06-19] MEDS ORDERED: MILK OF MA400 MG/5 M PO (10:51)
[2018-06-19] MEDS ORDERED: MINERAL OIL EN133 ML PR (10:52)
[2018-06-19] MEDS ORDERED: PREPARATION H C26 GM PR (10:55)
[2018-06-19] MEDS ORDERED: SENNA-DOCUSATE1 EAC1 PO (10:56)
[2018-06-19] MEDS ORDERED: COUMADIN3 MG PO (10:57)
[2018-06-19] MEDS ORDERED: KEFLEX500 MG PO (10:59)
== END 2018-06-18 03:57 | disposition home or self-care (01) ==
LOC: ED 02:39
PROC: 0HQ1XZZ Repair Face Skin, External Approach (ICD-10-PCS; principal; 2018-06-18)
DX: S01.412A Laceration without foreign body of left cheek and temporomandibular area, initial encounter (principal); W19.XXXA Unspecified fall, initial encounter
CPT/HCPCS: 12011; 99284

== ENCOUNTER 2018-06-23 12:19 | Inpatient (IN) | payer MEDICARE, OTHER ==
[~2018-06-23] VITALS: Ht 165.1 cm; Wt 61.5 kg
--- NOTE | 2018-06-23 11:54 | NUR ---
[facility] IN [place] CALLED AND STATED THEY WOULD COME EVALUATE PT BEFORE THEY COULD ACCEPT HER.
--- NOTE | 2018-06-23 11:56 | NUR ---
[facility] STATED THEY WOULD WAIT TO EVALUATE PT THE PT THEY THOUGHT THEY HAD GOING HOME TODAY DID NOT AND WOULD NOT BE LEAVING UNTIL TUE OF NEXT WEEK. THEY WILL EVALUATE PT BEFORE SHE CAN COME TO THEIR FACILITY.
[~2018-06-23 12:19] MED LIST changes: +ADULT GLYCERIN1 EACH PR; +ARICEPT10 MG PO; +CALCIUM500 M1 PO; +COLACE100 MG PO; +COUMADIN4 MG PO; +FLUOXETINE HCL20 M1 PO; +LEVOXYL200 MCG PO; +OMEPRAZOLE20 MG PO; +PHENYTOIN SODI100 MG PO; +PREPARATION H C26 GM PR; +QUETIAPINE FUMA50 MG PO; +SENNA-DOCUSATE1 EAC1 PO
--- NOTE | 2018-06-23 12:35 | NUR ---
PATIENT CHANGED TO [facility] BED. PATIENTS DAUGHTER IN ROOM. ASSESSMENT COMPLETE. AWAITING TO WORK WITH PT. BED ALARM IN PLACE.
--- NOTE | 2018-06-23 13:46 | NUR ---
PHYSICAL THERAPY IN ROOM WITH PATIENT.
--- NOTE | 2018-06-23 14:04 | NUR ---
BAHMAN AMBULATED WITH PHYSICAL THERAPY. PATIENT WAS A TWO PERSON MINIMAL ASSIST INT HE [place]. PATIENT DID NOT FOLLOW COMMANDS BUT WAS ABLE TO TOLERATE ACTIVITY. PATIENT HAS AN UNBALANCED GAIT. NEEDING ASSIST, BUT ABLE TO TOLERATE ACTIVITY. AMBULATING MORE TODAY THAN YESTERDAY
--- NOTE | 2018-06-23 15:46 | NUR ---
PATIENT SAT UP IN BED. GIVEN CHOCOLATE PUDDING. PATIENT TOLERATING BITES. GAVE MEDICATION. PATIENT DOING WELL WITH SWALLOW. DRINKING ICE WATER AT THIS TIME.
--- NOTE | 2018-06-23 16:13 | NUR ---
changed patients attends. patient had incont wet attends. repositioned in bed. no other needs at this time. call light on bed. patient has bed alarm in place.
--- NOTE | 2018-06-23 16:42 | NUR ---
SWALLOW EVALUATION ATTEMPTED; PT UNWILLING/UNABLE TO PARTICIPATE IN ENOUGH TRIALS/TASKS IN ORDER TO SUCCESSFULLY EVALUATE ABILITIES. PT NONVERBAL; HOWEVER, DURING VOCALIZATIONS, PT OBSERVED TO HAVE WET VOCAL QUALITY. PT DEMONSTRATED WILLINGNESS/ABILITY TO PARTICIPATE IN ONE TEXTURE TRIAL (JELLO) WHICH PATIENT MASTICATED AND SWALLOWED WITH NO OVERT S/S ASPIRATION/PENETRATION. SWALLOW EVALUATION CAN BE ATTEMPTED AT A LATER TIME.
--- NOTE | 2018-06-23 17:39 | NUR ---
changed patients attends. patient was incont of urine. set up for dinner. patient taking drinks of ensure and bites of mash potatoes and pudding.
--- NOTE | 2018-06-23 17:50 | NUR ---
PATIENT CURRENTLY SWG BED. WORKING WITH PT, OT, AND ST. PATIENT TOLERATED AMBULATING IN [place] WITH MINIMAL 2 ASSIST. ALMOST AN ENTIRE LAP. BED ALARM NEEDS TO BE IN PLACE. INCONT OF STOOL AND URINE. PATIENT REQUIRES FEEDING WITH MEALS. BAHMAN HAS HAD 3 ENSURES TODAY. SHE LIKES CHOCOLATE PUDDING AND ENSURE. STUFFED ANIMAL AT BEDSIDE. TAKING MEDS TODAY CRUSHED IN PUDDING.
--- NOTE | 2018-06-23 19:45 | NUR ---
REPORT RECIEVED FROM DAY SHIFT RN. PT BEING WHEELED AROUND HALLS WITH LOOM CHECKER. NO REQUESTS AT THIS TIME.
--- NOTE | 2018-06-23 20:04 | NUR ---
PATIENT PLEASANT AND SEEMS CONTENT AND WITHOUT PAINN. LAUREANO BREWER AT BEDSIDE.
--- NOTE | 2018-06-23 20:10 | NUR ---
WALKED WITH PT USING A WHEELCHAIR AROUND THE [facility] FLOOR SEVERAL TIMES. GOT HER BACK INTO BED WITH THE HELP OF LAUREANO OBRIEN.
--- NOTE | 2018-06-23 21:46 | NUR ---
GUM COOK MAGO, PT LYING IN BED PULLING AT BLANKETS. RNDANIELLA, 1:1 WITH PT AT THIS TIME. PADS TO RAILS AND FLOOR. BED ALARM ACTIVE. ROOM WITH VIEW OF NURSES STATION WITH CURTAIN OPEN.
--- NOTE | 2018-06-23 22:23 | NUR ---
PT IN BED RESTING AND WATCHING TELEVISION. CALL LIGHT WITHIN REACH. SEIZURE PADS IN PLACE. BED ALARM ON. NO REQUESTS AT THIS TIME. THIS RN REMAINS AT BEDSIDE.
--- NOTE | 2018-06-23 23:50 | NUR ---
WITH THE HELP OF LAUREANO BREWER WE CHANGED PT ATTENDS IMCONTINENT WITH URINE AND A SMEAR OF BM. ADJUSTED HER IN BED. TWO WARM BLANKETS GIVEN.
--- NOTE | 2018-06-24 01:26 | NUR ---
PT ASLEEP IN BED. CALL LIGHT WITHIN REACH. SEIZURE PADS IN PLACE. BED ALARM ON. BED IN LOW POSITION. NO REQUESTS AT THIS TIME.
--- NOTE | 2018-06-24 02:54 | NUR ---
WITH THE HELP OF LAUREANO BREWER WE CHANGED HER ATTEND INCONTINENT WITH URINE. CHANGED HER GOWN. TWO WARM BLANKETS GIVEN.
--- NOTE | 2018-06-24 03:29 | NUR ---
PT HAD TAKEN OFF HER GOWN AND ATTEND. WITH THE HELP OF LAUREANO BREWER WE GOT HER DRESSED AGAIN. WE GOT HER INTO A WHEELCHAIR AND PUSHED HER AROUND [facility] IN [place] TO CALM HER. SHE SMILED AND LAUGHED.
--- NOTE | 2018-06-24 04:46 | NUR ---
PT RESTING IN BED SLEEPING. CALL LIGHT WITHIN REACH. BED ALARM ON. SEIZURE PADS IN PLACE. NO REQUESTS AT THIS TIME.
--- NOTE | 2018-06-24 05:24 | NUR ---
I&OS DONE AND CHARTED
--- NOTE | 2018-06-24 06:37 | NUR ---
PT REMAINS SWING BED. PT DID NOT SLEEP MUCH THROUGHOUT THE NIGHT AND WAS FREQUENTLY INCONTINENT OF URINE WELL STOOL. BED ALARM NEEDS TO BE IN PLACE PT WILL ATTEMPT TO GET OUT OF BED. PT WAS TRANSFERRED FROM BED TO WITH 2PA. PT REMAINS AOX0, AND UNABLE TO COMMUNICATE EFFECTIVELY OR FOLLOW COMMANDS. PT ON CLEAR LIQUIDS WITH ENSURE PER ORDERS. SEIZURE PADS ON BED WITH RAILS UP.
--- NOTE | 2018-06-24 08:25 | NUR ---
PT RESTING COMFORTABLY IN HER BED AT THIS TIME. NO SIGNS OF PAIN OR DISCOMFORT. SEE NONVERBAL PAIN SCALE IN ASSESSMENT DOCUMENTATION (SCORED A 0). PT IS NONVERBAL WHICH IS HER BASELINE. TAMMI A COMPLETE NEURO ASSESSMENT BECAUSE OF THIS. PT MOANS AND GIGGLES WITH ME. ASSESSMENT COMPLETED AND MEDS GIVEN CRUSHED WITH HER BREAKFAST AT THIS TIME. PT HAS POOR PO INTAKE; SHE REQUIRES COMPLETE ASSISTANCE WITH EATING, BUT ONLY TOOK A FEW BITES BEFORE CLOSING HER MOUTH SHUT TIGHTLY, REFUSING ANY MORE BITES OR DRINKS OF HER ENSURE. ROOM AIR. NO IV. SWING BED STATUS. VSS. Q2HR REPOSITIONING AND TURNS ENCOURAGED ALTHOUGH SHE MOVES AROUND AND TURNS IN HER BED ON HER OWN FREQUENTLY. CALL LIGHT WITHIN REACH. SEIZURE PADS IN PLACE. BED LOCKED IN LOWEST POSITION WITH BED ALARM ON. VISIBLE FROM NURSES STATION. WILL CONTINUE TO MONITOR.
--- NOTE | 2018-06-24 08:41 | NUR ---
PATEINT IN BED, NURSE FEEDING HER BREAKFAST, AM CARE DONE BY MAUDE ROY
--- NOTE | 2018-06-24 10:18 | NUR ---
patient had bedbath jacki bernard asssited with the bedbath linens were hanged and she got a shampoo cap, she is currently resting in bed
--- NOTE | 2018-06-24 10:18 | NUR ---
PT LAYING IN BED WITH HER EYES SHUT, RESTING COMFORTABLY AT THIS TIME. NO SIGNS OF PAIN OR DISCOMFORT. CALL LIGHT WITHIN REACH. SEIZURE PADS IN PLACE. BED LOCKED IN LOWEST POSITION WITH BED ALARM ON. VISIBLE FROM NURSES STATION. WILL CONTINUE TO MONITOR.
--- NOTE | 2018-06-24 11:32 | NUR ---
PT ASSISTED UP TO COMMODE. BRIEF CHANGED AFTER INCONTINENCE. MEDIUM SIZED BM AT THIS TIME. PT ASSISTED INTO CHAIR. SHE IS CURRENTLY SITTING UP IN HER CHAIR COMFORTABLY WITH CHAIR ALARM ON. NO SIGNS OF PAIN OR DISCOMFORT. SHE IS PLEASANT AND SMILING. CALL LIGHT WITHIN REACH AND PT VISIBLE FROM NURSES STATION. WILL CONTINUE TO MONITOR.
--- NOTE | 2018-06-24 12:13 | NUR ---
PT SITTING UP IN CHAIR COMFORTABLY AT THIS TIME WITH NO SIGNS OF DISCOMFORT OR PAIN. RT IN ROOM COMPLETING ORDERED EKG. DAUGHTER JUST ARRIVED AND IS SITTING NEXT TO PT. NO QUESTIONS OR CONCERNS BY DAUGHTER AT THIS TIME. I UPDATED HER ON PT CONDITION AND PLAN OF CARE. SHE STATES SHE IS ASSISTING PT WITH LUNCH ONCE EKG COMPLETED. CALL LIGHT WITHIN REACH. CHAIR LOCKED WITH ALARM IN PLACE. FALL PRECAUTIONS IN PLACE. VISIBLE FROM NURSES STATION. WILL CONTINUE TO MONITOR.
--- NOTE | 2018-06-24 13:50 | NUR ---
PT BACK IN CHAIR AT THIS TIME AFTER HAVING A LONG WALK WITH THIS RN AND PHYSICAL THERAPIST IN HALLWAY, WITH DAUGHTER FOLLOWING BEHIND WITH WHEELCHAIR. PT SMILING AND SHOWS NO SIGNS OF DISCOMFORT OR PAIN. I WILL, HOWEVER, STILL GIVE PRN TYLENOL TO COVER ANY SORENESS SHE MIGHT START HAVING FROM HER WORKOUT. CHAIR ALARM ON AND LOCKED. DAUGHTER AT HER SIDE. CALL LIGHT IN REACH AND FALL PRECAUTIONS IN PLACE. WILL CONTINUE TO MONITOR.
--- NOTE | 2018-06-24 14:00 | NUR ---
TYLENOL GIVEN AT THIS TIME. PT PLEASANT AND UP IN CHAIR WITH CHAIR ALARM ON. DAUGHTER STILL AT HER SIDE. ALL FALL PRECAUTIONS IN PLACE. WILL CONTINUE TO MONITOR.
--- NOTE | 2018-06-24 15:14 | NUR ---
PT BACK IN BED FOR THE FIRST TIME SINCE THIS MORNING, RESTING COMFORTABLY WITH HER EYES CLOSED WITH NO SIGNS OF PAIN OR DISCOMFORT. DAUGHTER REMAINS AT THE BEDSIDE. CALL LIGHT WITHIN REACH. SEIZURE PADS IN PLACE. BED LOCKED IN LOWEST POSITION WITH ALARM ON. VISISBLE FROM NURSES STATION. WILL CONTINUE TO MONITOR.
--- NOTE | 2018-06-24 16:12 | NUR ---
PT RESTING IN BED COMFORTABLY AT THIS TIME WITH NO SIGNS OF DISCOMFORT OR PAIN. HER DAUGHTER HAS LEFT FOR THE DAY. PT CALM AND STILL. CALL LIGHT WITHIN REACH. BED LOCKED IN LOWEST POSITION WITH BED ALARM ON. SEIZURE PADS IN PLACE. VISIBLE FROM NURSES STATION. WILL CONTINUE TO MONITOR.
--- NOTE | 2018-06-24 16:45 | NUR ---
PT BECAME VERY RESTLESS AND AGITATED AT THIS TIME, SWINGING HER ARMS AT STAFF, TRYING TO CRAWL OUT OF BED, AND SCREAMING. THIS RN AND ALUMNI RELATIONS COORDINATOR STAFF TOOK PT ON NUMEROUS LOOPS AROUND THE UNIT IN A WHEELCHAIR WHICH CALMED HER DOWN. HER SON ARRIVED ONTO THE UNIT SHE WAS BEING WHEELED AROUND THE UNIT. SHE IS NOW BACK IN BED, CALM AND SMILING. NO LONGER AGITATED. CALL LIGHT WITHIN REACH. BED LOCKED IN LOWEST POSITION WITH BED ALARM ON. SEIZURE PADS IN PLACE. FALL PRECAUTIONS IN PLACE. VISIBLE FROM NURSES STATION. WILL CONTINUE TO MONITOR.
--- NOTE | 2018-06-24 17:33 | NUR ---
PT VS AND CONDITION STABLE TODAY ON 06/24/18 DAY SHIFT. FOR MAJORITY OF THE SHIFT, PT WAS PLEASANT, CALM AND COOPERATIVE, SMILING AND GIGGLING WITH STAFF. NONVERBAL AND ADVANCED DEMENTIA AT BASELINE. TAMMI COMPLETE NEURO ASSESSMENT DUE TO COGNITION. ROOM AIR. NO IV. UP IN CHAIR MAJORITY OF THE SHIFT, AMBULATED WITH THIS RN AND PHYSICAL THERAPIST IN [facility] TODAY. INCONT THROUGHOUT SHIFT; CHANGED ATTENDS THROUGHOUT SHIFT NEEDED. THIS EVENING PT BECAME AGITATED AND RESTLESS, HARD TO CONSOLE SO WE WHEELED HER AROUND IN HALLWAY WITH WHEELCHAIR WHICH CALMED HER DOWN. SHE IS NOW RESTING IN BED COMFORTABLY WITH HER SON AT HER SIDE. MEDS CRUSHED IN PUDDING. EKG COMPLETED AND READ BY DR. SPENCER EARLIER TODAY. NO CURRENT QUESTIONS OR CONCERNS BY SON. PT SHOWS NO SIGNS OF PAIN OR DISCOMFORT AT THIS TIME. CALL LIGHT WITHIN REACH. BED LOCKED IN LOWEST POSITION WITH BED ALARM ON. SEIZURE PADS IN PLACE. VISIBLE FROM NURSES STATION. WILL CONTINUE TO MONITOR.
--- NOTE | 2018-06-24 18:47 | NUR ---
PATIENT RESTING IN BED. I&O TAKEN. DIAPER CHANGED. CALL LIGHT WITHIN REACH. NO MORE NEEDS AT THIS TIME.
--- NOTE | 2018-06-24 19:00 | NUR ---
SHIFT REPORT RECEIVED. PATIENT RESTING IN BED. SEIZURE PADS IN PLACE FOR SAFETY. BED ALARM ON.
--- NOTE | 2018-06-24 19:54 | NUR ---
VITALS AND I&OS DONE AND CHARTED. CLEANED UP ROOM.
--- NOTE | 2018-06-24 20:30 | NUR ---
PT WAS TURNED SIDEWAYS IN BED, REPOSITIONED HER. BED ALARM IS ON.
--- NOTE | 2018-06-24 20:50 | EKG ---
[facility] [address] [place] [address] Signed Atrial fibrillation Abnormal ECG When compared with ECG of 19-JUN-2018 12:59, No significant change was found Confirmed by REUBEN SPENCER MD ([id number]) on 06/24/2018 8:50:39 PM Electronically Signed By: REUBEN SPENCER MD 06/24/[id number] PATIENT NAME: AZALEA POLLARD Electrocardiogram DATE OF : 35 PHYSICIAN: REUBEN SPENCER MD REPORT #: [id number] REPORT IS CONFIDENTIAL AND NOT TO BE RELEASED WITHOUT AUTHORIZATION
--- NOTE | 2018-06-24 21:22 | NUR ---
PATIENT APPEARS TO BE SLEEPING SOUNDLY. RR 18. BED ALARM ON. FAMILY IN ROOM.
--- NOTE | 2018-06-24 23:15 | NUR ---
PATIENT'S ATTENDS WET. ASSISTED TO CHANGE ATTENDS AND BED LINEN. BERRIER CREAM APPLIED. PATIENT SKIN INTACT, SOME REDNESS NOTED ON LEFT HIP WHERE ATTENDS STRAP HAD BEEN. POSITIONED PATIENT FOR COMFORT. BED ALARM ON. PATIENT TOLERATED WELL.
--- NOTE | 2018-06-25 02:00 | NUR ---
PATIENT'S ATTENDS WET. 2PA TO CHANGE HER. PATIENT TOLERATED WELL. POSITIONED FOR COMFORT. BED ALARM ON.
--- NOTE | 2018-06-25 04:30 | NUR ---
PATIENT BECOMING MORE RESTLESS. ATTEMPTING TO CLIMB OUT OF THE BED. PATIENT'S ATTEND WAS WET AND ALSO SMALL BM. LEONARDO CARE PERFORMED. BARRIER CREAM APPLIED. POSITIONED FOR COMFORT. BED ALARM ON.
--- NOTE | 2018-06-25 04:45 | NUR ---
PATIENT CONTINUES TO BE RESTLESS. MAUDE HEMPHILL ASSISTED PATIENT INTO UNIT WC WITH ASSIST OF DANIELLA TINSLEY. JOBY WALKED PATIENT FOR ABOUT 30MINS UNTIL SHE WAS MORE RELAXED. PATIENT THEN TRANSFERED TO RECLINER. 2 PERSON MAX ASSIST. CHAIR ALARM IN PLACE. CHAIR RECLINED AND BLANKET IN PLACE.
--- NOTE | 2018-06-25 06:40 | NUR ---
PATIENT SLEPT WELL DURING THE SHIFT UNTIL ABOUT 0430 WHEN SHE BECAME RESTLESS. ATTEMPTS TO SOOTHE HER WERE NOT SUCESSFUL. RIDES IN THE HALLWAYS WERE HELPFUL IN CALMING HER. REPOSITIONED Q2HR. INCONTINENT OF LARGE AMOUNTS OF URINE AND SMALL STOOL. 2 PERSON MAX ASSIST TO TRANSFER. PATIENT NONVERBAL. BED ALARM OR CHAIR ALARM.
--- NOTE | 2018-06-25 07:42 | NUR ---
RECIEVED CHANGE OF SHIFT REPORT FROM MARTIZA TINSLEY AND DANIELLA TINSLEY. PATIENT UP IN CHAIR. WHITE BOARD UPDATED. WILL CONTINUE TO MONITOR.
--- NOTE | 2018-06-25 09:14 | NUR ---
Pharmacy review of medications. All medications, with the exception of Procardia XL can be crushed
--- NOTE | 2018-06-25 09:25 | NUR ---
PATIENT SITTING UP IN CHAIR. VITALS AND I TAKEN. ICE WATER GIVEN. CALL LIGHT WITHIN REACH. NO MORE NEEDS AT THIS TIME.
--- NOTE | 2018-06-25 09:39 | NUR ---
PATIENT IS IN CHAIR, DAUGHTER IN ROOM, DAUGHTER HELPED HER EAT BREAKFAST
--- NOTE | 2018-06-25 09:50 | NUR ---
ROUNDED ON PATIENT FOR MORNING ASSESSMENT AND MEDICATIONS ADMINSTRATION, UP IN CHAIR WITH CHAIR ALARM ON. MEDICATIONS CRUSHED AND PLACED IN PUDDING FOR ADMINSTRATION. CNAs IN ROOM ASSESSING PATIENT FOR INCONTINECE, ATTENDS DRY. DAUGHTER AT BEDSIDE, VERY ATTENDTIVE AND ENCOURAGING TOWARDS PATIENT. 1025: DIETARY PERSONNEL IN ROOM COLLECTING PATIENTS LUNCH ORDER. NO MORE COMPLAINTS AT THIS TIME. CALL LIGHT WITHIN REACH. POSSESSIONS AT BEDSIDE.
--- NOTE | 2018-06-25 10:49 | NUR ---
PATIENT WORKING WITH PHYSICAL THERAPY, AMBULATING IN HALLWAY. BACK IN ROOM AT THIS TIME, UP IN CHAIR.
--- NOTE | 2018-06-25 12:30 | NUR ---
ROUNDED ON PATIENT FOR MEDICATION ADMINISTRATON. PATIENT UP IN CHAIR WITH DAUGHER AT BEDSIDE. PATIENT FINISHED 2ND ENSURE WITH LUNCH. NO COMPLAINTS AT THIS TIME. POSSESSIONS AT BEDSIDE.
--- NOTE | 2018-06-25 14:00 | NUR ---
ROUNDED ON PATIENT BECOMING RESTLESS WITH FAMILY AT BEDSIDE. PATIENT EXHIBITED SIGNS OF WANTING TO AMBULATE, 2 RNs ASSISTED PATIENT IN AMBULATING THE HALLS WITH FAMILY MEMBER FOLLOWING BEHIND WITH WHEELCHAIR. PATIENT WAS PLACED BACK IN BED, ATTENDS CHANGED, STILL EXHIBITED RESTLESSNESS. AMBULATED IN HALLWAY A SECOND TIME AT A BRISK PACE. RETURNED PATIENT BACK TO ROOM, SEATED ON TOILET WITH OBERSVATION BY 2 RNs, PRODUCED MODERATE AMOUNT OF STOOL. DEPENDS PLACED, AMBULATED SAFELY BACK TO BED. SEIZURE PRECAUTIONS PLACED ON BED, BED ALARM ON. FAMILY AT BEDSIDE.
--- NOTE | 2018-06-25 17:45 | NUR ---
ROUNDED ON PATIENT FOR MEDICATION ADMINISTRATION. IT WAS NOTED THAT PATIENT WAS INCONTINENT IN BED AND THEN BECAME AGITATED TOWARDS NURSING STAFF. UNABLE TO ADMINISTER MEDICATION DUE TO PATIENTS AGGRESSIVE BEHAVIOR. WILL UPDATE HOSPTIALIST. FOUR PERSON ASSIST TO CHANGE CHUCKS AND ATTENDS. AGITATED BEHAVIOR EVIDENCE BY: HITTING, KICKING, STICKING TONGUE OUT AND SCREAMING.
--- NOTE | 2018-06-25 18:23 | NUR ---
CHIDI RN ATTEMPTED TO GIVE PUDDING TO PATIENT, DOES NOT AWAKE TO VOICE OR TOUCH. DOCUMENTED MEDS AT NOT GIVEN DUE TO BEHAVIOR. HOSPITALIST AWARE.
--- NOTE | 2018-06-25 18:43 | NUR ---
SWING BED. SEVERELY DEMENTED. WORKED WITH PT. AMBULATED HALLWAY SEVERAL TIMES TODAY. INCONTINENT, ATTENDS IN PLACE. REGULAR DIET, FEEDER. 2PA, FWW. BED AND CHAIR ALARM. CRUSH MEDS IN PUDDING DURING MED ADMINISTRATION. BECOME COMBATIVE THIS AFTERNOON DURING MEDICATION ADMINSTRATION, UNABLE TO GIVE MEDS. IF PATIENT COOPERATIVE LATER, PLEASE ATTEMPT TO GIVE SEROQUEL. POLST FORM UPDATED ON CHART.
--- NOTE | 2018-06-25 19:25 | NUR ---
REPORT RECIEVED. PT RESTING IN BED. PT STILL REFUSES TO RECIEVE PUDDING/MEDS WHEN OFFERED BY CHIDI TINSLEY. CALL LIGHT WITHIN REACH. BED ALARM ON. SIEZURE PADS IN PLACE.
--- NOTE | 2018-06-25 20:15 | NUR ---
PT WAS GETTING AGITATED IN BED. WITH THE HELP OF LAUREANO VILLEGAS WE CHANGED HER ATTENDS INCONTINENT OF URINE AND A SMEAR OF BM. I ASKED PT IF SHE WANTED TO GO FOR A WHEELCHAIR RIDE? SHE NODDED AND SAID "YES." WE GOT HER IN THE CHAIR AND I PUSHED HER AROUND MED\\SURG FOR SEVERAL LAPS. WE APPROACHED HER ROOM THE LAST ROUND, I ASKED HER IF SHE WANTED TO GO BACK TO BED? AGAIN SHE NODDED AND SAID"YES." GOT HER BACK INTO BED, SHE ROLLED OVER AND CLOSED HER EYES. COVERED HER UP WITH A BLANKET AND GAVE HER THE "BABY" (STUFFED ANIMAL) BED ALARM SET. PT QUIET I LEFT HER ROOM.
--- NOTE | 2018-06-25 21:13 | NUR ---
SPOKE WITH DR SPENCER ABOUT GIVING THE SEROQUEL DOSE THAT THE PT REFUSED EARLIER FOR 75 MG. HE SAID IT WAS OK TO GIVE THE DOSE THAT WAS MISSED EITHER BY CHANGING THE EARLIER SCHEDULED DOSE OR ENTERING A JACKI TIME ORDER.
--- NOTE | 2018-06-25 22:15 | NUR ---
PT IN BED RESTLESS, PT AOXO. PT UNABLE TO COMMUNICATE VERBALLY OR FOLLOW ANY COMMANDS. PERRL, PT'S LS CLEAR, BT ACTIVE. ABD SOFT NONTENDER. PT REMAINS TO HAVE WEAKNESS TO RIGHT SIDE WITH CONTRACTURES OF THE RIGHT UPPER EXTREMITY. PT UP TO TAKE A WHEEL CHAIR RIDE WITH JOBY SANTORO. SEROQUEL GIVEN WITH PUDDING BY MARITZA TINSLEY PER MD. NO DIFFICULTY SWALLOWING NOTED. BED ALARM ON. SEIZURE PADS IN PLACE. CALL LIGHT WITHIN REACH. PT VISIBLE FROM NURSES STATION.
--- NOTE | 2018-06-25 22:20 | NUR ---
ATTEMPTS TO GIVE PATIENT HER ORAL MEDS WERE UNSUCESSFUL WHILE SHE WAS IN THE BED AND SHE WAS YELLING AT STAFF. ASSISTED MAUDE JOBY IN CHANGING PATIENT'S ATTENDS AND BEDDING. ASSISTED PATIENT UP INTO THE WC AND MAUDE JOBY TOOK HER FOR A FEW LAPS AROUND THE UNIT UNTIL SHE WAS LAUGHING AND CALM. PATIENT THEN TOLERATED HER ORAL MEDS AND RETURNED TO BED TO REST. BED ALARM ON.
--- NOTE | 2018-06-25 22:32 | NUR ---
PT WAS GETTING AGITATED IN HER BED. WITH THE HELP OF LAUREANO PERRY AND LAUREANO BREWER WE GOT HER ATTENDS CHANGED, GOT HER IN A WHEELCHAIR AND I TOOK HER AROUND MED\SURG SEVERAL TIMES. LAUREANO VILLEGAS HELPED ME GET HER BACK TO BED. BED ALARM SET.
--- NOTE | 2018-06-26 00:52 | NUR ---
PT SLEEPING SOUNDLY IN BED. CALL LIGHT WITHIN REACH. BED ALARM ON. SIEZURE PADS ON BEDSIDES. PT VISIBLE FROM NURSE STATION.
--- NOTE | 2018-06-26 01:08 | NUR ---
PATIENT SLEEPING SOUNDLY. RR 20. BED ALARM ON.
--- NOTE | 2018-06-26 05:43 | NUR ---
PT RESTLESS IN BEGINNING OF SHIFT. PT TAKEN FOR A RIDE IN WHEEL CHAIR AND GIVEN EVENING SEROQUEL. PT REMAINS INCONTINENT OF URINE AND STOOL. PT NONVERBAL, DOES NOT FOLLOW COMMANDS, AOXO. BED/CHAIR ALARM ON. SIEZURE PADS IN PLACE. 2 PERSON MAX ASSIST FOR TRANSFERS.
--- NOTE | 2018-06-26 07:27 | NUR ---
PT IN BED, RESTING QUIETLY WITH EYES CLOSED. BED ALARM ON, SEIZURE PADS ON BED RAILS, FALL MAT ON FLOOR. CALL BUTTON IN REACH. PT WAS CHANGED FROM WET ATTENDS INTO DRY BY JANUARY AT APROXIMATELY 0710.
--- NOTE | 2018-06-26 09:04 | NUR ---
PATIENT SITTING UP IN BED. FACE AND HANDS CLEANED. PATIENT FED. ICE WATER GIVEN. CALL LIGHT WITHIN REACH. BED ALARM. NO MORE NEEDS AT THIS TIME.
--- NOTE | 2018-06-26 10:11 | NUR ---
PATIENT RESTING IN BED. VITALS AND I&O DONE. CALL LIGHT WITH REACH. BED ALARM ON. NO MORE NEEDS AT THIS TIME.
--- NOTE | 2018-06-26 10:17 | NUR ---
PT IN BED, AWAKE, SMILING. OFFERED PT WATER. PT TOOK CUP IN HER LEFT HAND, THIS RN ASSISTED PT IN GUIDING STRAW TO MOUTH, PT TOOK A DRINK OF WATER. PT HANDED CUP BACK TO THIS RN WHEN ASKED IF SHE WANTED MORE. BED ALARM ON, SEIZURE PADS AND FALL PADS IN PLACE, CALL LIGHT IN REACH, CURTAIN AND DOOR OPEN, PT'S ROOM ACROSS FROM RN STATION.
--- NOTE | 2018-06-26 11:10 | NUR ---
PT AMBULATED IN HALLS WITH RHONDA, PHYSICAL THERAPY, WITH THIS RN FOLLOWING PT WITH W/C. PT AMBUALTED WITH 2 PERSON ASSIST USING GAIT BELT. AMBULATED APROXIMATELY 1/[address] AROUND "LOOP" OF HALLWAY BEFORE SHE NEEDED TO REST. PT SAT IN W/C TO RECOVER, RECOVERED QUICKLY. PT HAD TO SIT AND REST IN W/C ONCE MORE BEFORE COMPLETING HALLWAY "LOOP", AND RETURNING TO BED IN ROOM 121.
--- NOTE | 2018-06-26 11:46 | NUR ---
PT SITTING UP IN BED, ASSISTED TO MOVE UP IN BED BY THIS RN AND LAUREANO ROSE USING DRAW SHEET. PT TOOK SCHEDULED MEDICATION IN PUDDING. PT IS EATING LUNCH WITH ASSISTANCE FROM HER DAUGHTER. TOLERATING WELL THUS FAR.
--- NOTE | 2018-06-26 13:10 | NUR ---
PT IN BED, RESTING QUIETLY WITH EYES CLOSED, NO S/S DISTRESS OR DISCOMFORT NOTED.
--- NOTE | 2018-06-26 13:50 | NUR ---
PT PER HER DAUGHTER IS IMPROVING SHE IS WALKING IN THE HALLWAY WITH 2 PERSON ASSIST WITH A WC BREAK, OT STATED SHE DID WELL AND IS PARTICIPATING IN ADLS. TALKED WITH NEDRA AT [facility] INFORMED HER OF PT PROGRESS AND SHE SAID SHE WOULD BE GLAD TO COME RE EVALUATE PT BUT SURYA STATES SHE FEELS THAT PT CAN STILL BENEFIT FROM DAILY PT AND OT SO SHE WOULD LIKE HER TO GO TO A SNF AND WOULD LIKE [facility] TO EVALUATE HER. CALLED AND LEFT A MESSAGE FOR MANDY TO CALL ME BACK FROM [facility] IN [place].
--- NOTE | 2018-06-26 13:59 | NUR ---
PT'S DAUGHTER SLICK STOPPED BY OFFICE SHE WAS WALKING PT IN WHEELCHAIR. SHE FEELS PT IS STRONGER, HAD P.T. TWICE TODAY AND FEELS PT IS PARTICIPATING MORE. THANKED ME AGAIN FOR HER PRAYER VERONICA, WILL FOLLOW NEEDED
--- NOTE | 2018-06-26 16:22 | NUR ---
PT IN BED. AWAKE, ALERT, DISORIENTED PER BASELINE. PT TOOK SPOON WITH PUDDING WITH CRUSHED MEDICATIONS IN IT, AND FED HERSELF BITES. PT ALSO HELD CUP, AND GAVE HERSELF DRINKS OF WATER ONCE THIS RN HANDED HER THE WATER CUP.
--- NOTE | 2018-06-26 17:41 | NUR ---
PATIENT RESTING IN BED. TWO PERSON ASSISTED. DIAPER CHANGED. PATIENT REPOSITIONED IN CHAIR. CHAIR ALARM ON. PATIENT FED. PATIENT STAND WITH GATE BELT ON. PATIENT WALK 1 LAP. PATIENT BACK TO ROOM. PATIENT BACK TO BED. BED ALARM ON. ICE WATER GIVEN. NO MORE NEEDS AT THIS TIME.
--- NOTE | 2018-06-26 17:43 | NUR ---
PT WAS SITTING UP IN RECLINER, BEING FED BY REFRACTORY REPAIRER. PT BECAME RESTLESS, SO CNAS ASSISTED PT UP INTO W/C, AMBULATED WITH PT IN W/C AROUND HALLS OF FLOOR. PT NOW IN BED, RESTING QUIETLY.
--- NOTE | 2018-06-26 17:44 | NUR ---
PT NON VERBAL, REQUIRED ASSISTANCE WITH EATING AND DRINKING. PT UP, AMBULATED IN HALLS X 2, ONCE WITH 2 PHYSICAL THERAPY STAFF, WITH THIS RN FOLLOWING WITH W/C, AND ONCE WITH 2 CNAS, WITH AN RN FOLLOWING WITH W/C. PT NEEDED W/C TO SIT AND REST DURING AMBULATION. 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 GENERALIZED WEAKNESS CONTINUES, BUT IS SOMEWHAT IMPROVED PER P.T. STAFF. PT ON RA. HAS CLEAR LUNGS, DIMINISHED IN BASES. INCONTINENT OF BOWEL AND BLADDER.
--- NOTE | 2018-06-26 18:59 | NUR ---
PT WAS RESTLESS IN BED, ASSISTED UP TO W/C WITH 2 AIDES ASSISTANCE, AND MITOCHONDRIAL DISORDERS COUNSELOR AMBULATED WITH PT IN W/C. PT THEN BACK TO ROOM, INTO BED WITH 2 PERSON ASSIST. ASSISTED TO MOVE UP IN BED USING DRAWSHEET. PT NOW RESTING IN BED QUIETLY.
--- NOTE | 2018-06-26 19:15 | NUR ---
RECEIVED REPORT FROM DAY SHIFT RN. PATIENT IS RESTLESS IN BED. PATIENTS ATTEND CHANGED. PATIENT HAD X2 SMALL BM. PATIENT IS RESTING IN BED. BED ALARM IN PLACE. CALL LIGHT IN REACH.
--- NOTE | 2018-06-26 19:45 | NUR ---
PATIENT UP IN WHEELCHAIR AT RN STATION. PAINTER PLATE TALKING WITH PATIENT. NO NEEDS NOTED.
--- NOTE | 2018-06-26 21:38 | NUR ---
PATIENT GIVEN PRN TYLENOL FOR OUTWARD EXPRESSIONS OF DISCOMFORT. PATIENT CONTINUES TO SIT IN A WHEELCHAIR AT THE RNS STATION. GRAIN PICKER IS OBSERVING PATIENT CARE AT THIS TIME. NO FURTHER NEEDS NOTED.
--- NOTE | 2018-06-26 22:45 | NUR ---
PATIENT ASSISTED A 2PA W/GAIT BELT BACK TO BED. PATIENTS ATTEND CHANGED. PATIENT IS NOW IN BED RESTING. PATIENTS BED ALARM IS ON FOR SAFETY. CALL LIGHT IN REACH.
--- NOTE | 2018-06-26 23:29 | NUR ---
PATIENT IS RESTING IN BED WITH EYES CLOSED. BREATHING IS EVEN AND UNLBORED, RR 17. BED ALARM ON FOR SAFETY. CALL LIGHT IN REACH.
--- NOTE | 2018-06-27 02:32 | NUR ---
PATIENT IS RESTING IN BED WITH EYES CLOSED, RR 16. CALL LIGHT IN REACH. BED ALARM ON FOR SAFETY.
--- NOTE | 2018-06-27 04:28 | NUR ---
PATIENTS ATTEND CHANGED. PATIENT IS RESTING IN BED. NO NEEDS NOTED. CALL LIGHT IN REACH. BED ALARM ON FOR SAFETY.
--- NOTE | 2018-06-27 04:29 | NUR ---
LAUREANO LOPEZ AND I CHANGED PATIENT ATTENDS. BED ALARM ON.
--- NOTE | 2018-06-27 05:27 | NUR ---
PATIENT RESTED WELL DURING THE LATER PART OF THE SHIFT. PATIENT IS ON A REGULAR DIET AND REQUIRES ASSISTANCE WITH EATING. PATIENT IS WORKING WITH PT/OT. PATIENT IS ON ASPERATION PRECUATIONS AND SEIZURE PRECAUTIONS. PATIENT IS A 2-3PA W/GAIT BELT AND FWW. PATIENT TAKES PILLS CRUSHED IN PUDDING. PATIENT IS SWING BED. PATIENT IS INCONTINENT. PATIENT IS NONVERBAL. PATIENT IS NOT ALERT OR OREINTED. PATIENT DOES NOT USE CALL LIGHT. BED ALRM IS ON FOR SAFETY.
--- NOTE | 2018-06-27 06:34 | NUR ---
PATIENTS ATTEND CHANGED AND INTAKE AND OUTPUT RECORDED BY METAL POLISHER AND BUFFER APPRENTICE. PATIENT IS RESTING IN BED WITH TV ON. NO NEEDS NOTED. CALL LIGHT IN REACH. BED ALARM IS ON FOR SAFETY.
--- NOTE | 2018-06-27 07:10 | NUR ---
PT IN BED, AWAKE, CALM. RECIEVED BEDSIDE REPORT FROM LAUREANO LOPEZ.
--- NOTE | 2018-06-27 08:39 | NUR ---
PT SITTING UP IN RECLINER, TOOK SCHEDULED MEDICATIONS CRUSHED IN PUDDING. PT WAS GRIMACING, RESTLESS, GROANING, GAVE ACETAMINOPHEN 500 MG PO PRN. PT BEING FED BREAKFAST BY MAUDE JOHNSON. PERSONAL SUPPLIES AND CALL LIGHT IN MAUDE ZELAYA AT CHAIR SIDE.
--- NOTE | 2018-06-27 10:06 | NUR ---
PT SITTING UP IN RECLINER, CALM, NOT RESTLESS, NO MOANING OR GRIMACING NOTED OR REPORTED. OCCUPATIONAL THERAPY IN ROOM WITH PT AT THIS TIME.
--- NOTE | 2018-06-27 10:35 | NUR ---
PT WAS SITTING UP IN RECLINER IN ROOM. THIS RN AND MAUDE JOHNSON ASSISTED PT IN AMBULATING TO BATHROOM FOR SHOWER, 2 PERSON ASSIST WITH GAIT BELT. PT A COMPLETE ASSIST WITH SHOWER AND WASHING HER HAIR. PT BECAME AGITATED AND AGRESSIVE DURING SHOWER, ATTEMPTED TO HIT MAUDE AND THIS RN X 5, DID NOT CONNECT. PT ALSO ATTEMPTED TO KICK THIS RN WITH HER LEFT LEG, DID NOT CONNECT. PT ASSISTED IN RINSING AND DRYING OFF. ASSISTED INTO NEW PULL ON ATTENDS AND FRESH GOWN. PT CALMER ONCE DRY. PT ASSISTED TO AMBULATE FROM BATHROOM TO BED WITH 2 PERSON ASSIST WITH GAIT BELT. PT PROVIDED WITH A WARM BLANKET, BED RAILS UP WITH SEIZURE PADS ON, BED ALARM ON, AND FALL PADS AT BEDSIDES ON FLOOR. CURTAIN AND DOOR OPEN. PT NOW RESTING QUIETLY WITH EYES CLOSED IN BED.
--- NOTE | 2018-06-27 10:40 | NUR ---
PATIENT IN BED RESTING WITH EYES CLOSED. SEIZURE PADES ON, SIDE BED ALARM ON. FALL PADS ON FLOOR.
--- NOTE | 2018-06-27 11:07 | NUR ---
PT UP AMBULATING IN HALLS WITH RHONDA, PHYSICAL THERAPY, USING GAIT BELT AND FWW, 2 PERSON ASSIST, DAUGHTER FOLLOWING WITH W/C. PT DID HAVE TO SIT IN W/C TO REST ONCE IN AMBULATING AROUND HALLWAY "LOOP" X 1. PT BACK TO ROOM, TO BED.
--- NOTE | 2018-06-27 12:35 | NUR ---
PT'S DAUGHTER IN ROOM WITH PT FEEDING PT LUNCH.
--- NOTE | 2018-06-27 12:42 | NUR ---
PT IS STILL NON-VERBAL, BUT SEEMS TO BE SOMEWHAT MOTIVATED TO GET UP AND WALK WITH P.T. ASSISTANCE. SLICK IS EVER POSITIVE HER DAUGHTER THAT IS HERE WITH PT. WILL CONTINUE TO FOLLOW AND BE AVAILABLE NEEDED
--- NOTE | 2018-06-27 13:40 | NUR ---
TALKED WITH SURYA-SHE SAID OK ABOUT SENDING CHART NOTES TO [facility] IN [place]. TALKED WITH IMPLEMENTATION CONSULTANT FROM [facility] AND HE SAID TO SEND HIM CLINICALS AND HE WOULD LOOK AT THEM AND GIVE ME AN ANSWER TO WHETHER THEY WOULD BE ABLE TO TAKE HER THERE OR NOT.
--- NOTE | 2018-06-27 14:35 | NUR ---
PATIENTS ATTENDS CHANGED AND CLEAN. OT IN ROOM WITH THE PATIENT AND HER DAGHTER.
--- NOTE | 2018-06-27 15:02 | NUR ---
PATIENT RESTING IN BED. OT AND DAUGHTER IN ROOM. DIAPER CHANGED. PATIENT COMBATIVE.
--- NOTE | 2018-06-27 15:15 | NUR ---
PT IN BED, AWAKE, ALERT, SMILING. NO S/S DISTRESS OR DISCOMFORT NOTED. DAUGHTER IN ROOM AT BEDSIDE. PT HAS BED ALARM ON, SEIZURE PADS ON BEDRAILS, AND FALL MATS NEXT TO BED ON BOTH SIDES.
--- NOTE | 2018-06-27 18:00 | NUR ---
SAT AT PATIENT BEDSIDE FOR 30 MINUTES PROVIDING EMOTIONAL SUPPORT THROUGH THERAPEUTIC COMMUNICATION. MUSIC IS PLAYING IN ROOM, TV IS ON, AND STUFFED ANIMAL IN BED FOR COMFORT. PATIENT IS NOW RESTING CALMLY IN BED.
--- NOTE | 2018-06-27 19:04 | NUR ---
REPORT RECEIVED FROM ALAYNA TINSLEY. PT ASSISTED TO BSC WITH 3 PERSON ASSIST FROM REWORK MACHINE OPERATOR'S. PT APPEARS TO BE IN NO ACUTE DISTRESS AND REMAINS IN ROOM NEAR NURSING STATION. PT HAS HAD NO URINE OUTPUT FOR THE PAST 4 HOURS SO LAUREANO ZHENG TO NOTIFY .
--- NOTE | 2018-06-27 19:04 | NUR ---
SAT WITH PATIENT FOR A FEW MINUTES TO PROVIDE COMFORT THROUGH THERAPEUTIC COMMUNICATION. PATIENT IS NOW RESTING COMFORTABLY IN BED. BED ALARM ON.
--- NOTE | 2018-06-27 19:15 | NUR ---
PER QUALITY ENGINEER PT WAS ABLE TO VOID AND ALSO HAD BM, WAS NOTIFIED OF THIS BY LAUREANO ZHENG.
--- NOTE | 2018-06-27 20:25 | NUR ---
PT ASSESSMENT COMPLETED. PT RESTING IN BED, ALERT REMAINS IN VIEW OF NURSING STATION WITH BED ALARM ON AND SIDE RAIL PADS IN PLACE WITH FALL PADS PLACED ON SIDES OF BEDS FOR SAFETY DUE TO PT'S VERY HIGH FALL RISK/HISTORY. PT APPEARS COMFORTABLE.
--- NOTE | 2018-06-27 20:43 | NUR ---
ROUNDED CHARGE. PATIENT IS RESTING IN BED. PATIENT IS NONVERBAL. PATIENT APPEARS TO BE COMFORTABLE. CALL LIGHT IN REACH. BED ALARM ON FOR SAFETY.
--- NOTE | 2018-06-27 21:50 | NUR ---
PT APPEARS AGITATED, ROCKING BACK AND FOURTH IN BED AND OCCASIONALY MOANS WITH FACIAL GRIMMACE. PRN PO TYLENOL ADMINISTERED CRUSHED IN PUDDING PT TOLORATED WELL. PT ALSO CHANGED AT THIS TIME WITH ASSISTANCE FROM LAUREANO PORTER. BED ALARM ON AND PT IN VIEW OF NURSING STATION.
--- NOTE | 2018-06-27 23:50 | NUR ---
PT RESTING SUPINE IN BED, EYES CLSOED AND APPEARS TO BE SLEEPING COMFORTABLY. PT REMAINS IN VIEW OF NUIRSING STATION.
--- NOTE | 2018-06-28 03:20 | NUR ---
PT RESTING ON RIGHT LATERAL SIDE IN BED, PT IS ALERT WITH EYES OPEN, RESPIRATIONS EVEN AND UNLABORED. PT REMAINS IN VIEW OF NURSING STATION.
--- NOTE | 2018-06-28 04:48 | NUR ---
PT ASSISTED WITH DRINKING WATER. PT REMOVED ATTENDS AND BEDDING SATURATED WITH URINE. MAUDE CORONADO IN TO ASSIST WITH CLEANING PT AND APPLYING NEW ATTENDS AND NEW SHEETS/BEDDING. WHILE CHANGING PATIENT, PT MADE SEVERAL ATTEMPTS TO GRAB AT STAFF AND HAD TO BE REDIRECTED FREQUENTLY. PT ALSO ASSISTED INTO BLUE PAPER SCRUB PANTS AND CLEAN GOWN. PT PROVIDED WITH WARM BLANKET AND NOW APPEARS TO BE RESTING COMFORTABLY. NONSKID SOCKS AND HEEL PROTECTORS ON. SEIZURE PADDING ON SIDE RAILS AND FALL MATTS ON EACH SIDE OF PT'S BED. BED ALARM ON. PT REMAINS IN VIEW OF NURSING STATION.
--- NOTE | 2018-06-28 05:57 | NUR ---
PT IS SWING BED. SLEPT ON AND OFF THROUGH THE NIGHT. 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 PT REQUIRES ASSITANCE WITH FEEDING AND DRINKING. PT IS ALSO INCONTINENT OF URINE AND STOOL AND REMOVES ATTENDS FREQUENTLY. SEIZURE PADS IN PLACE TO BILAT SIDE RAILS AND FALL MATTS IN PLACE TO BOTH SIDES OF BED DUE TO HIGH FALL RISK. PT REQUIRES FREQUENT REDIRECTION DURING PT CARE TO PREVENT PT FROM GRABBING AT STAFF. PT IS 2-3 PERSON ASSIST WITH FWW AND IS WORKING WITH PT/OT. PT TAKES PILLS CRUSHED IN PUDDING. PT DOES NOT USE CALL LIGHT AND REMAINS IN VIEW OF NURSING STATION BED ALARM ON. PT REMAINS ON ASPIRATION AND SEIZURE PRECAUTIONS.
--- NOTE | 2018-06-28 07:20 | NUR ---
REPORT RC'D FROM PSYCH RN NURSE. PT RESTING IN BED SLEEPING, NO ACUTE DISTRESS NOTED, RESPIRATION EVEN AND UNLABORED. BED ALARM ON, FALL PAD AND SEIZURE PADS IN PLACE.
--- NOTE | 2018-06-28 08:10 | NUR ---
PT REPEATEDLY FLINGING LEGS OVER RAILS ON BED. PLEASANT THIS MORNING AND REDIRECTABLE. TUCKED BACK IN AND GIVEN "BABY" DOLL. WORKS FOR APPROX 30-60 SECONDS.
--- NOTE | 2018-06-28 08:38 | NUR ---
THIS BLACKSMITH ASSISTANT AND MAUDE LARA ASSISTED TO CHANGE PATIENT'S ATTENDS. PATIENT HAD LARGE URINARY INCONTINENCE. MAUDE LARA PERFORMED PERICARE. LINENS CHANGED, CALL LIGHT IN REACH. OCCUPATIONAL THERAPY IN ROOM TO ASSIST PATIENT WITH FEEDING. NO OTHER NEEDS AT THIS TIME.
--- NOTE | 2018-06-28 08:48 | NUR ---
PHARMACY NEEDED A HEIGHT AND WEIGHT ENTERED ON PATIENT ON HER NEW ACCOUNT, USED THE PREVIOUS ACCOUNT PRIOR TO SWING BED.
--- NOTE | 2018-06-28 09:00 | NUR ---
OT AT BEDSIDE ASSESSING PT AND ASSITING WITH FEEDING. PT IS DISORIENTED TO ALL AND NONVERBAL. MORNING MEDICATIONS GIVEN. RESPIRATIONS EVEN AND UNLABORED, LUNGS CLEAR THROUGHOUT, NO COUGH NOTED. ABD SOFT WITH BOWEL TONES ACTIVE X4, INCONTINENT AT BASELINE, ATTENDS IN PLACE WITH FREQUENT ASSESSMENT. TURN AND ASSESS POSITIONING Q2H. NO EDEMA NOTED. NO IV ACCESS. VARIOUS BRUISES THROUGHOUT AND LACERATION TO FOREHEAD, WNL. BED ALARAM ON WITH FALL AND SIEZURE PADS IN PLACE. CURTAINS DRAWN FOR CLEAR LINE OF SIGHT. WILL CONTINUE TO MONITOR.
--- NOTE | 2018-06-28 09:32 | NUR ---
PATIENT RESTING IN BED, SEIZURE PADS IN PLACE,BED ALARM ON. NO OTHER NEEDS AT THIS TIME.
--- NOTE | 2018-06-28 10:55 | NUR ---
PT'S DAUGHTER AT BEDSIDE
--- NOTE | 2018-06-28 11:04 | NUR ---
PT AMBULATING HALLWAY WITH PHYSICAL THERAPY AND DAUGHTER.
--- NOTE | 2018-06-28 11:55 | NUR ---
CALLED AND LEFT MESSAGE FOR MANDY TO CALL ME BACK.
--- NOTE | 2018-06-28 12:05 | NUR ---
PT RESTING COMFORTABLY IN BED SLEEPING, RESPIRTIONS EVEN AND UNLABORED, NO ACUTE DISTRESS NOTED. PT'S DAUGHTER AT BEDSIDE. BED ALARM ON, FALL AND SIEZURE PADS IN PLACE. NO ACUTE CHANGES. WILL CONTINUE TO MONITOR.
--- NOTE | 2018-06-28 13:30 | NUR ---
PT RESTING COMFORTABLY IN BED SLEEPING, DAUGHTER AT BEDSIDE. ATTEND CHECK FOR VOID, DRY. DENIES OTHER NEEDS. NO ACUTE CHANGES. WILL CONTINUE TO MONITOR.
--- NOTE | 2018-06-28 14:30 | NUR ---
PATIENT IS IN BED RESTING, LEONARDO CARE WAS DONE.BY jacki SADLER, 1 LG INCONT. EPISODE. CALL LIGHT IN REACH, FAMILY IN ROOM. BED ALARM ON. NO OTHER NEEDS AT THIS TIME.
--- NOTE | 2018-06-28 14:37 | NUR ---
RECIEVED A PHONE CALL FROM VERNON AT [facility] IN [place] AND HE STATED THAT DUE TO THE AMOUNT OF CONFUSED PT THAT THEY HAVE PRESENTLY THEY WOULD NOT BE ABLE TO TAKE PT ON AT THIS TIME.
--- NOTE | 2018-06-28 14:43 | NUR ---
RECIEVED REPORT FROM LAUREN TINSLEY. PATIENT RESTING COMFORTABLY IN BED WITH DAUGHTER AT BEDSIDE, DAUGHTER IS ATTENTIVE AND ENCOUARGING OF PATIENT AND THEIR CARE. CALL LIGHT WITHIN REACH AND NO SIGNS OF PAIN PRESENT. BED ALARM ON. SEIZURE PRECAUTIONS AND FOAM MATS ARE STILL INITIATED. PATIENT IS ON ROOM AIR. PATIENT REQUIRES Q2 HOUR POSITION CHANGES. NO COMPLAINTS AT THIS TIME.
--- NOTE | 2018-06-28 14:46 | NUR ---
VISITED WITH SLICK-ALWAYS POSITIVE AND HOPEFUL! CAME PREPARED TO SPEND THE DAY WITH HER MOTHER TRYING TO GET HER WELL ENOUGH TO MOVE TO SNF IN [place]. EXTENDED A BLESSING, WILL CONTINUE TO FOLLOW
--- NOTE | 2018-06-28 15:11 | NUR ---
AT 1430, THIS FISHER LAMPARA NET AND MAUDE LARA ASSISTED TO CHANGE PATIENT'S ATTENDS. PATIENT HAD LARGE URINARY INCONTINENCE. PERICARE PERFORMED BY MAUDE LARA, THIS FISHER LAMPARA NET PROVIDED BARRIER CREAM TO AREAS OF REDNESS AND IRRITATION. PATIENT DRESSED IN CLEAN GOWN, AND REPOSITIONED. PATIENT RESTING IN BED AT THIS TIME, CALL LIGHT IN REACH, FAMILY IN ROOM. NO OTHER NEEDS.
--- NOTE | 2018-06-28 15:21 | NUR ---
TALKED WITH SURYA ABOUT THE PHONE CALL I RECIEVED FROM [facility], SHE SAID SHE UNDERSTANDS THAT THEY CAN'T TAKE HER MOM AT THIS TIME. AGAIN CALLED AND LEFT A MESSAGE FOR MANDY AT [facility] IN [place] TO CALL ME BACK.
--- NOTE | 2018-06-28 15:29 | NUR ---
RECIEVED A CALL FROM MANDY AT [facility] IN [place] AND THEY ARE GOING TO LOOK AT IF THEY HAVE BEDS AVAILABLE AND POSS TO COME EVAL PT AND WILL LET ME KNOW TOMORROW WHAT IS AVAIL AND WHEN THEY COULD COME VISIT HER.
--- NOTE | 2018-06-28 18:32 | NUR ---
PATIENT GETTING INCREASINGLY RESTLESS AND IS TRYING TO CLIMB OVER THE BED RAILS. BED ALARM ON. PATIENT VISIBLE FROM NURSES STATION. PATIENT HAS HAD NO URINARY OUTPUT SINCE 1400, RN NOTIFIED.
--- NOTE | 2018-06-28 18:34 | NUR ---
PATIENT EXPERIENCES SEVERE DEMENTIA. AMBULATED IN HALLWAY TWICE TODAY. SEIZURE PADS AND FALL MATS IN PLACE. BED ALARM. INCONTINENT. MEDICATIONS CRUSHED IN PUDDING FOR ADMINISTRATION. REQUIRES FEEDING. FLUIDS ENCOURAGED THROUGHT TODAY. EMOTIONAL COMFORT PROVIDED THROUGH THERAPEUTIC COMMUNICATION AND HAVING STUFFED ANIMAL WITH HER. SWING BED. STILL WAITING FOR FACILITY PLACEMENT. REGULAR CHOPPED DIET, THIN LIQUIDS.
--- NOTE | 2018-06-28 18:53 | NUR ---
AT 1700 PATIENT STARTED TO BECOME RESTLESS. UP TO COMMODE SEVERAL TIMES. ON ASSESSMENT PATIENT SEEMS TO BE CONSTIPATED. SOME STOOL PASSED. IN BED NOW. RESTLESS. PULLING SHEETS OFF BED. PUTTING LEGS OVER SIDE RAILS. SEIZURE PADS AND FLOOR MATS IN PLACE. BED ALARM ON. MIXED 1700 MEDS WITH PUDDING. ABLE TO GIVE TO PATIENT TONIGHT. COOPERATED WITH CARES.
--- NOTE | 2018-06-28 19:35 | NUR ---
PT RESTING IN BED, ALERT AND APPEARS TO BE RESTING COMFORTABLY. ASSESSMENT COMPLETED AND PT ASSISTED WITH DRINKING ICE WATER. FALL MATTS ON EITHER SIDE OF BED AND SEIZURE PADS ON SIDE RAILS. PT REMAINS IN VIEW OF NURSING STATION.
--- NOTE | 2018-06-28 20:06 | NUR ---
HELPED PT TO PUT HER PANTS BACK ON, SHE HAD TAKEN THEM OFF. CHANGED HER ATTEND SHE WAS INCONTINENT OF URINE. GOT HER 2 WARM BLANKETS AND PUT HER SOCKS BACK ON HER. OFFERED HER A DRINK OF HER ENSURE. SHE DRANK WHAT WAS LEFT IN HER CUP( 200MM) ASKED HER IF SHE WANTED MORE? SHE SAID NO AND SHOOK HER HEAD. I SAID OK AND SAID PIPPA AND HAVE A GOOD SLEEP. SHE CLOSED HER EYES.
--- NOTE | 2018-06-28 22:02 | NUR ---
PT APPEARS TO BE RESTING COMFORTABLY SUPINE IN BED, ATTENDS CHANGED PER JANUARY ASSISTANT COOK.
--- NOTE | 2018-06-28 22:03 | NUR ---
CHANGED HER ATTEND INCONTINENT OF URINE. COVERED HER BACK UP AND SAID PIPPA. SHE LAYED ON HER LEFT SIDE AND CLOSED HER EYES.
--- NOTE | 2018-06-28 22:37 | NUR ---
IN TO SEE PATIENT. PT HAS TAKEN OFF CLOTHING AND ATTENDS. PT ASSISTED INTO NEW ATTENDS AND NEW GOWN/PANTS WITH ASSITANCE FROM CASSANDAR SANTORO. PT APPEARS COMFORTABLE.
--- NOTE | 2018-06-29 02:26 | NUR ---
PT RESTING IN BED, EYES CLOSED AND RESPIRATIONS RATE 16. PT APPEARS TO BE SLEEPING COMFORTABLY. BED ALARM, FALL MATTS AND SIDE RAIL PADDING REMAINS IN PLACE AND PT REMAINS IN VIEW OF NURSING STATION.
--- NOTE | 2018-06-29 04:15 | NUR ---
PT SEEN SQUIRMING IN BED WITH OCCASIONAL FACIAL GRIMMACE. PT APPEARS UNCOMFORTABLE. WARM BLANKET PROVIDED AND PRN TYLENOL ADMINISTERED PO. PT REFUSES H20 WHEN OFFERED. PT REMAINS IN VIEW OF NURSING STATION AND ALL FALL PRECAUTIONS REMAIN IN PLACE. ATTENDS AND BEDDING DRY.
--- NOTE | 2018-06-29 05:34 | NUR ---
PT APPEARED TO SLEEP COMFORTABLY MOST OF NIGHT. PT DID HAVE OCCASION OF PERCEIVED DISCOMFORT THIS MORNING AND RECEIVED PRN PO TYLENOL 500MG. PT NONVERBAL/UNABLE TO COMMUNICATE AT BASELINE WITH RIGHT SIDED WEAKNESS FROM PAST CVA. PT HAS FALL MATTS ASN SEIZURE PADS TO BOTH SIDE RAILS IN PLACE WITH BED ALARM ON DUE TO HIGH RISK OF FALLS AND HYSTORY OF SEIZURE DISRODER AND RECENT FALLS AT CARE FACILITY. PT IS 2PA WITH FWW. INCONTINANT OF URINE AND STOOL. PT TAKES MEDICATIONS CRUSHED IN PUDDING.
--- NOTE | 2018-06-29 05:50 | NUR ---
VITALS AND I&OS DONE AND CHARTED. OFFERED HER A DRINK OF WATER, SHE DID NOT WANT IT. WITH THE HELP OF LAUREANO RODGERS WE CHANGED HER ATTENDS , BRAYAN AND DRAW SHEET.
--- NOTE | 2018-06-29 07:15 | NUR ---
SHIFT REPORT RECEIVED FROM RIVETER PNEUMATIC RN AT BEDSIDE. PATEINT IN BED, SEIZURE BED PRECAUTIONS IN PLACE. RESPIRATIONS EVEN AND UNLABORED. PATIENT AWAKE AND SMILING. BED ALARM ON, CALL LIGHT WITHIN REACH.
--- NOTE | 2018-06-29 08:45 | NUR ---
ROUTINE CEPHALEXIN, QUETIAPINE, PHENYTOIN, AND DIGOXIN CRUSHED AND ADMINISTERED IN PUDDING. PATIENT BEGAN POCKETING MEDICATIONS. PATIENT BEGAN DROOLING THE CRUSHED MEDICATIONS AND PUDDING FROM THE MOUTH. DR POLK NOTIFIED.
--- NOTE | 2018-06-29 11:55 | NUR ---
ROUTINE DOSE OF CEPHALEXIN CRUSHED AND ADMINISTERED IN PUDDING. PATIENT SHOOK HEAD AND REFUSED MEDICATION. PATIENT CONTINUES TO BE NONVERBAL. DAUGHTER IN ROOM WITH PATIENT. CALL LIGHT WITHIN REACH.
--- NOTE | 2018-06-29 12:51 | NUR ---
ASKED BY DR POLK TO ATTEMPT TO ADMINISTER NOON DOSE OF CEPHALEXIN. NOON DOSE OF CEPHALEXIN CRUSHED IN PUDDING AND ADMINISTERED TO PATIENT. EVENING DOSE OF ROUTINE QUETIAPINE ALSO CRUSHED AND ADMINISTERED TO PATIENT PER DR POLK. PATIENT SWALLOWED ALL MEDICATIONS. DAUGHTER AT BEDSIDE, FEEDING PATIENT.
--- NOTE | 2018-06-29 13:48 | NUR ---
CHECKED IN WITH SLICK-JUST BEFORE CARE CONF. PT WAS AWAKE, RESTING IN BED WITH SLICK VISITING WITH HER. EXTENDED A BLESSING, WILL FOLLOW NEEDED
--- NOTE | 2018-06-29 17:55 | NUR ---
PATIENT BECOMING INCREASINGLY RESTLESS IN BED. AFTER ENTERING ROOM, PATIENT WAS FOUND TO BE INCONTINENT. LEONARDO CARE PERFORMED, NEW ATTENDS IN PLACE. PATIENT RESTING IN BED, WATCHING TELEVISION. RESPIRATIONS EVEN AND UNLABORED. WARM BLANKET GIVEN TO PATIENT, CALL LIGHT WITHIN REACH.
--- NOTE | 2018-06-29 18:37 | NUR ---
PATIENT TAKES MEDICATIONS CRUSHED AND IN PUDDING. MORNING MEDICATIONS WERE REFUSED BY PATIENT. PATIENT IS ON ROOM AIR. REGULAR DIET, BUT REQUIRES ASSISTANCE WITH FEEDING. PATIENT IS A 2 PERSON MAX ASSIST AND WORKED WITH PT IN THE AFTERNOON.INCONTINENT OF URINE AND STOOL. SEIZURE PRECAUTIONS ON BED IN PLACE.
--- NOTE | 2018-06-29 19:00 | NUR ---
TOOK PT FOR A WHEELCHAIR RIDE AROUND THE [facility] FLOOR FOR A FEW LAPS. GOT PT BACK TO BED. COVERED HER UP AND BED ALARM SET.
--- NOTE | 2018-06-29 20:00 | NUR ---
RECEIVED REPORT AT 1930, FOUND PT IN WHEELCHAIR WITH STAFF. NO NEW CONCERNS AT THIS TIME.
--- NOTE | 2018-06-29 20:05 | NUR ---
PT WAS CLIMBING OUT OF BED. I TOOK HER FOR A WHEELCHAIR RIDE AROUND [facility] FLOOR FOR ABOUT HALF HR. GOT HER BACK TO BED. BED ALARM PUT BACK ON.
--- NOTE | 2018-06-29 21:10 | NUR ---
WITH THE HELP OF LAUREANO BOWLES WE CHANGED HER ATTEND INCONTINENT OF URINE AND A SMEAR OF BM. GAVE HER DRINKS OF WATER. REPOSITIONED HER IN BED . BED ALARM SET.
--- NOTE | 2018-06-29 21:12 | NUR ---
I&OS DONE AND CHARTED.
--- NOTE | 2018-06-29 22:00 | NUR ---
PT BRIEF WAS CHANGED WITH WEB CONTENT MANAGER AND SEROQUEL WAS GIVEN PER MD POLK ORDER. PT AT THIS TIME IS SLEEPING. PT OVERALL DOES MUCH BETTER THAN LAST WEEK. PT IS ABLE TO COMMUNICATE SOME WITH WORDS AND SEEMS TO UNDERSTAND MOST OF WHAT IS ASKED OF HER. PT IS ALSO ABLE TO HOLD CUP. NO NEW CONCENRS AT THIS TIME.
--- NOTE | 2018-06-30 | NUR ---
PT APPEARS TO BE SLEEPING AT THIS TIME. NO NEW CONCERNS.
--- NOTE | 2018-06-30 02:00 | NUR ---
PT IS SLEEPING AT THIS TIME.
--- NOTE | 2018-06-30 02:05 | NUR ---
PT JUST WOKE UP. PT BRIEF WAS CHANGED. PT IS TRYING TO HIT STAFF. IT TOOK STAFF X3 TO GET HER CHANGED. PT AT THIS TIME IS LAYING WITH EYES CLOSED IN BED.
--- NOTE | 2018-06-30 02:20 | NUR ---
PT NOW TRIED TO GET OUT OF BED X2. EARLIER DISCUSSED WITH MD POLK, I WILL ORDER ANOTHER 25MG OF SEROQUEL PO FOR HER AGITATION. PT IS UNCOOPERATIVE AT THIS TIME.
--- NOTE | 2018-06-30 02:32 | NUR ---
HELPED RN ROSY CHANGE PT'S ATTEND INCONTINENT OF URINE. HAD TO DO A BED CHANGE. WARM BLANKET GIVEN. BED ALARM SET.
--- NOTE | 2018-06-30 02:37 | NUR ---
PT CLIMBING OUT OF BED , SET BED ALARM OFF. I WENT IN AND GOT HER LEGS BACK INTO BED. COVERED HER UP WITH HER BLANKET. BED ALARM SET.
--- NOTE | 2018-06-30 02:42 | NUR ---
PT TRYING TO CLIMB OUT OF BED AGAIN. WITH THE HELP OF LAUREANO BOWLES WE REPOSITIONED HER IN BED. OFFERED HER A DRINK OF WATER, SHE REFUSED. COVERED HER BACK UP AGAIN AND SET BED ALARM.
--- NOTE | 2018-06-30 03:00 | NUR ---
PT AT THIS TIME IS STILL TRYING TO CLIMB OUT OF BED. FLAME HARDENING MACHINE OPERATOR AND I ARE TAKING PT FOR A STROLL ON THE FLOOR.
--- NOTE | 2018-06-30 03:19 | NUR ---
PT AT THIS TIME IS BACK IN BED. NO NEW CONCERNS AT THIS TIME. BED ALARM IS ON.
--- NOTE | 2018-06-30 04:07 | NUR ---
PT AT THIS TIME IS SLEEPING.
--- NOTE | 2018-06-30 05:27 | NUR ---
PT SLEPT SOME THIS SHIFT BUT ALSO WAS AGRESSIVE TOWARD STAFF WITH KICKING, HITTING AND TRYING TO BITE STAFF. PT RECEIVED 50MG OF SEROQUEL THIS SHIFT. V/S ARE WDL, PT IS ABLE TO UNDERSTAND AND RESPOND WITH WORDS AT TIMES. PT ALSO FOLLOWS COMMANDS AT TIMES. PT TRIED SEVERAL TIMES THIS SHIFT TO CLIMB OUT OF BED AND HAS BEEN TAKED SO FAR ON TWO WHEELCHAIR RIDES IN THE HALLWAYS. THIS SETTLES PT OVERALL.
--- NOTE | 2018-06-30 05:27 | NUR ---
PT IS AWAKE AGAIN AND TRYING TO CLIMB OUT OF BED. PT WANTED TO GO FOR A STROLL IN THE WHEELCHAIR.
--- NOTE | 2018-06-30 07:10 | NUR ---
RECIEVED REPORT FROM AIRPORT REPRESENTATIVE RN. PT APPEARS TO BE SLEEPING. RESPIRATIONS ARE EQUAL NAD NON LABORED. BED ALARM IN PLACE. VISIBLE FROM NURSING STATION. SEIZURE PRECAUTIONS IN PLACE.
--- NOTE | 2018-06-30 09:06 | NUR ---
OCUPATIONAL THERAPY IN ROOM WITH PT ASSITING WITH BREAKFAST
--- NOTE | 2018-06-30 10:04 | NUR ---
PT APPREARS TO BE RESTING IN BED. RESPIRATIONS EQUAL AND NON LABORED. BED ALARM IN PLACE. VISIBLE FROM NURSING STATION.
--- NOTE | 2018-06-30 10:15 | NUR ---
CLINICALLS FAXED TO [facility] [phone]. FAX CONFIRMATION RECEIVED.
--- NOTE | 2018-06-30 10:36 | NUR ---
Patient was in bed resting , combative when MAUDE Longo and Maude Aggarwal went to change her , RN was notedfied , MAUDE Costello came in to Assist, patient now resting. call light in reach. no other needs at this time
--- NOTE | 2018-06-30 12:52 | NUR ---
DAUGHTER IN TO SEE PT. LUNCHA T BEDSIDE. PT HELPING WITH EATING MORE. BED ALARM IN PLACE. VISIBLE FROM NURSING STATION.
--- NOTE | 2018-06-30 14:03 | NUR ---
PT UP IN HALLS WITH PHYSICAL THERAPY. PT TOLERATING WELL. WALKED 4 LAPS. DAUGHTER AT SIDE HELPING.
--- NOTE | 2018-06-30 14:34 | NUR ---
Patient in bed sleeping, alarm on , call light in reach,no other needs at this time.
--- NOTE | 2018-06-30 16:06 | NUR ---
PT TRYING TO CLIMB OUT OF BED. THIS NURSE TO BEDSIDE. 1PA WITH GAIT BELT TO AMBULATE HALLS. PT WAS ABLE TO WALK 4 LAPS WITHOUT BREAKS OR RESTING. DAUGHTER WALKED BY PT SIDE. BACK TO BED. BED ALARM IN PLACE. SEIZURE PRECAUTIONS.
--- NOTE | 2018-06-30 16:39 | NUR ---
PT HAD GOOD DAY. BED ALARM, SEIZURE PRECAUTIONS, AMBULATING IN HALLS. SWING BED PT. FOLLOWS COMMANDS AT TIMES.LIKES TAKING WALKS, HELPS CALM PT DOWN. WORKING WITH PT/OT/ST WELL. GOOD OUTPUT. INCONT OF URINE AND STOOL. BM THIS SHIFT.
--- NOTE | 2018-06-30 16:55 | NUR ---
patient was restless in bed, changed breifs, patient is resting in bed watching TV. no other needs at this time
--- NOTE | 2018-06-30 20:00 | NUR ---
RECEIVED REPORT AT 1900, FOUND PT IN BED RESTLESS BUT NO CLIMBING OUT OF BED.
--- NOTE | 2018-06-30 20:17 | NUR ---
CHARGE NURSE ROUNDING NOTE: CONTINUES ON SWING BED STATUS, SEIZURE AND FALL PRECAUTIONS IN PLACE, PADS AROUND RAILS. INCONTINENT OF URINE, CHANGED, RAILS UP, BED ALARM ON. CALL LIGHT AND FLUIDS AT BEDSIDE. NON VERBAL,
--- NOTE | 2018-06-30 20:59 | NUR ---
PT HAS REMAINED RESTLESS AND DID TRY TO GET OUT OF BED. PT WAS TAKEN FOR A WALK. PT DID 2 LAPS ON THE MS-FLOOR. PT DID VERY WELL AMBULATING. PT NOW IS BACK IN BED STILL SOMEWHAT RESTLESS AT THIS TIME. V/S ARE WDL, ALL LOBES ARE CLEAR, NO EDEMA NOTED. NO NEW CONCERNS AT THIS TIME.
--- NOTE | 2018-06-30 22:00 | NUR ---
UP UNTIL NOW PT HAS BEEN VERY RESTLESS. PT AT THIS TIME IS RESTING. NO NEW COCNERNS AT THIS TIME.
--- NOTE | 2018-07-01 | NUR ---
PT IS STARTING TO WAKE UP BUT IS STILL CALM. NO NEW CONCERNS AT THIS TIME.
--- NOTE | 2018-07-01 02:00 | NUR ---
PT APPEARS TO BE SLEEPING AT THIS TIME.
--- NOTE | 2018-07-01 04:00 | NUR ---
PT AT THIS TIME IS SLEEPING.
--- NOTE | 2018-07-01 04:59 | NUR ---
PT WOKE UP AND HAD TO BE CHANGED. PT ALSO DRANK SOME WATER. PT IS BACK TO SLEEP AT THIS TIME. BED ALARM IS ON.
--- NOTE | 2018-07-01 05:37 | NUR ---
PT OVERALL DID NOT HAVE A BAD NIGHT. AT START OF SHIFT PT WAS RESTLESS AND TRIED TO CLIMB OUT OF BED SEVERAL TIMES. PT WALKED 2 LAPS IN THE HALLWAY WITH STAFF AND DID WELL. PT DID NEED 25MG OF SEROQUEL PO AFTER HER WALK. SINCE THEN PT HAS BEEN SLEEPING AND NOT RESTLESS WHILE AWAKE. V/S ARE WDL, ASSESSMENT HAS FOUND NO CHANGES SINCE YESTERDAY. NO NEW CONCERNS AT THIS TIME.
--- NOTE | 2018-07-01 06:25 | NUR ---
Pt manually removed seizure pads from her bad rails closests to door and crawled out from bed, bed alarm on. Stooping down gait, 2 person assist, walked to brp. Incontinent of urine and soft bowel. cleansed, red roz area noted, lotion to area, clean attends in place. Semi coopertaive. hands cleansed as pt had been digging into her rectum and vagina, nails soiled with bm. cleansed, pt not very cooperative with this. Placed in w/c and taken for a ride down and up hallways to calm her bk. Calmer
--- NOTE | 2018-07-01 06:28 | NUR ---
AT ABOUT 0620 BED ALARM WENT OFF AND PT WAS ALREADY STANDING NEXT TO HER BED. PT WANTED TO WALK INTO THE BATHROOM AND SAT ON THE TOILET. THIS WAS THE FIRST TIME PT INDICATED THAT SHE IS ABLE TO COMPREHEND GOING TO THE BATHROOM. PT AT THIS TIME IS IN THE WHEELCHAIR WITH STAFF ROAMING THE FLOOR. PT AT THIS TIME IS EASY RE-ORIENTED AND SEEMS RATHER CONTENT AND HAPPY AT THIS TIME.
--- NOTE | 2018-07-01 07:00 | NUR ---
SHIFT REPORT RECEIVED FROM SAP TREASURY CONSULTANT RN AT BEDSIDE. PATIENT RESTING IN BED, RESPIRATIONS EVEN AND UNLABORED. PATIENT ON ROOM AIR, BED ALARM ON. PATIENT IS NONVERBAL, BUT DOES NOT APPEAR TO BE IN PAIN. CALL LIGHT WITHIN REACH.
--- NOTE | 2018-07-01 08:30 | NUR ---
MORNING ASSESSMENT AND ROUTINE MEDICATIONS ADMINISTERED. MEDICATIONS CRUSHED AND ADMINISTERED IN APPLE SAUCE, NO ISSUES OR CONCERNS WITH MEDICATION ADMINISTRATION. WHEN ASKED IF THE PATIENT WAS EXPERIENCING PAIN, THE PATIENT SHOOK HER HEAD AND SAID "NO". PATIENT RESTING IN CHAIR, CHAIR ALARM ON. RENEWABLE ENERGY TRADER IN ROOM WITH PATIENT ASSISTING WITH BREAKFAST. CALL LIGHT WITHIN REACH.
--- NOTE | 2018-07-01 10:30 | NUR ---
PATIENT UP FROM CHAIR TO BED, TWO PERSON ASSIST WITH USE OF GAIT BELT. ATTENDS CHANGED, LEONARDO CARE COMPLETE, NEW PAIR OF ATTENDS IN PLACE. BED ALARM ON, CALL LIGHT WITHIN REACH. PATIENT APPEARS CONTENT, RESPIRATIONS EVEN AND UNLABORED.
--- NOTE | 2018-07-01 12:13 | NUR ---
DAUGHTER IN ROOM HELPING HER EAT LUNCH. WAS CHANGED AROUND 1100 THIS MORNING BY NURSE AND I. PATIENT WAS EATING HER OWN BREAKFAST THIS MORNING I WENT IN AND CHECK ON HOW SHE WAS DOING.
--- NOTE | 2018-07-01 14:34 | NUR ---
THE NURSE AND HER DAUGHTER WALKED HER WHILE I FOLLOWED BEHIND WITH THE WHEELCHAIR SHE WALKED 2 LAPS AROUND MED SURG.
--- NOTE | 2018-07-01 16:40 | NUR ---
WHILE ADMINISTERING AFTERNOON ROUTINE MEDICATIONS, PATIENT BECAME INCREASINGLY AGITATED, COMBATIVE, AND NONCOMPLIANT. SMALL SPOONFUL OF CRUSHED MEDICATION IN APPLESAUCE SWATTED TO THE FLOOR BY PATIENT. ALL REMAINING MEDICATION WAS ADMINISTERED. PATIENT THEN ATE DINNER IN CHAIR, WITH ASSISSTANCE IN FEEDING. CHAIR ALARM IN PLACE.
--- NOTE | 2018-07-01 17:00 | NUR ---
PT ASSISTED TO WALK IN [place] WITH 1PA WITH GAIT BELT AND NURSE FOLLOWING WITH WHEEL CHAIR. PT SITTING IN CHAIR, ASSISTING WITH DINNER.
--- NOTE | 2018-07-01 18:38 | NUR ---
PATIENT REMAINED NONVERBAL. PATIENT IS A 1-2 ASSIST WITH USE OF GAIT BELT. MORNING MEDICATIONS WERE CRUSHED AND ADMINISTERED IN PUDDING WITHOUT ISSUES. IN THE AFTERNOON, PATIENT BECAME VERY AGITATED AND NONCOMPLIANT WITH STAFF DURING AFTERNOON MEDICATION ADMINISTRATION. PATEINT IS INCONTINENT AND NEEDS ASSISTANCE WITH FEEDING. [facility] BED PRECAUTIONS IN PLACE.
--- NOTE | 2018-07-01 20:39 | NUR ---
PAINT PREPARER ROUNDING. PT SCREAMING WHEN STAFF ENTER THE ROOM. PT ATTEMPTING TO HIT STAFF AT BEDSIDE. VITAL SIGNS OBTAINED. PT WITH SEIZURE AND FLOOR PADS PRESENT. BED ALARM ACTIVATED. ROOM WITHIN VIEW OF RN STATION WITH CURTAIN OPEN. SENIOR SQL DEVELOPER WITH PT WHEN THIS ELECTRONIC SYSTEMS TECHNICIAN EXITED THE ROOM.
--- NOTE | 2018-07-01 20:42 | NUR ---
DR Berry notified of pt's bp of 98/61 and of pt's outbursts towards post closer yelling and swinging her left arm at staff. Pt's attends is dry and mucous membranes moist. new order received for seraquil 25mg po now received.
--- NOTE | 2018-07-01 22:47 | NUR ---
BRUNO BURNHAM AND I CHANGED SOILED ATTENDS, URINE AND SMALL BOWEL MOVEMENT.
--- NOTE | 2018-07-01 23:06 | NUR ---
PT RESTING SUPINE IN BED, ALERT BUT APPEARS CALM AND CONTENT, RESPIRATIONS EVEN AND UNLABORED AT 16. PT REMAINS IN VIEW OF NURSING STATION. FALL/SEIZURE PRECAUSTIONS IN PLACE.
--- NOTE | 2018-07-02 00:28 | NUR ---
PT RESTING IN BED, EYES CLOSED ADN RESPIRATIONS EVEN AND UNLABORED. PT REMAINS IN VIEW OF NURSING STATION AND SEIZURE PRECAUTIONS IN PLACE.
--- NOTE | 2018-07-02 02:35 | NUR ---
PT RESTING IN BED ON RIGHT LATERAL SIDE, EYES CLOSED AND RESPIRATIONS VISABLE. PT APPEARS TO BE SLEEPING COMFORTABLY. IN VIEW OF NURSING STATION, SEIZURE PRECAUTIONS IN PLACE.
--- NOTE | 2018-07-02 04:30 | NUR ---
PT MOANING AND GRIMMACING, TURNS BACK AND FORTH IN BED. PT APPEARS TO BE IN GENERALIZED DISCOMFORT. 500MG PO PRN TYLENOL WAS ADMINISTERED, LIGHTS DIMMED AND PT COVERED WITH BLANKET. PT NO LONGER GRIMMACING AND WAS CONSOLED WITH THERAPEUTIC COMMUNICATION.
--- NOTE | 2018-07-02 05:50 | NUR ---
PT APPEARED TO SLLEP COMFORTABLY MOST OF THIS SHIFT BUT DID RECEIVE PRN PO TYLENOL THIS MORNING FOR PERCEIVED PAIN. PT MAKES FREQUENT LOUD VOCALIZATIONS WHILE AWAKE AND DID HAVE AN EPISODE WEHRE SHE FLAILED HANDS AT STAFF AND APPEARED AGITATED AND WAS GIVEN A ONE TIME DOSE OF SERAQUIL 25MG PO.PT PROCEEDED TO APPEAR TO SLEEP COMFORTABLY MOST OF THIS SHIFT BUT DID RECEIVE PRN PO TYLENOL THIS MORNING FOR PERCEIVED PAIN. PT REMAINS NONVERBAL WITH RIGHT SIDED WEAKNESS. TAKES PILLS CRUSHED IN PUDDING AND REQUIRES ASSISTANCE WITH FEEDINGS. PT ALSO IS INCONTINANT OF URINE/STOOL. 1-2 PERSON ASSIST WITH FWW. SEIZURE PRECAUTIONS. PT DOES NOT HAVE IV ACCESS.
--- NOTE | 2018-07-02 08:05 | NUR ---
PT VERY RESTLESS AT THIS TIME. CONTINUOUSLY TRYING TO CRAWL OUT OF BED, MOANING LOUDLY. THIS RN AND DIGITAL CAMPAIGN SPECIALIST ASSISTED PT INTO CHAIR FOR BREAKFAST. PT CONTINUES TRYING TO CRAWL OUT OF CHAIR AND RESTLESS. WE THEN ASSISTED HER INTO WHEELCHAIR TO BE PUSHED AROUND THE UNIT WHICH TENDS TO HELP HER RESTLESSNESS. ONCE IN CHAIR SHE WAS MORE WILLING TO EAT BREAKFAST. MEDS GIVEN CRUSHED IN PUDDING. ASSESSMENT COMPLETED. PT ATE ENTIRE OMELETTE AND 90% OF HER MUFFIN. PT WAS THEN PUSHED AROUND THE UNIT AND NUMEROUS LAPS TAKEN BY DIGITAL CAMPAIGN SPECIALIST IN WHEELCHAIR. SAFETY TOP PRIORITY. ALL FALL PRECAUTIONS IN PLACE AT ALL TIMES. WILL CONTINUE TO MONITOR CLOSELY.
--- NOTE | 2018-07-02 08:10 | NUR ---
PATEINT VERY FIDGETY, MOVING AROUND IN BED TRYING TO GET UP, maude CASTANO AND THIS leadership development instructor MOVED HER OVER TO THE CHAIR, SHE ATE A BIT OF BREAKFAST AND TOOK HER MEDS FROM NURSE, SHE IS CURRENTLY IN THE WHEEL CHAIR WALKING AROUND WITH MAUDE CASTANO
--- NOTE | 2018-07-02 10:45 | NUR ---
PT IN BED ASLEEP, RESTING COMFORTABLY WITH NO SIGNS OF DISCOMFORT OR PAIN. BED LOCKED IN LOWEST POSITION WITH BED ALARM ON. CALL LIGHT WITHIN REACH. ALL FALL PRECAUTIONS IN PLACE. WILL CONTINUE TO MONITOR.
--- NOTE | 2018-07-02 12:22 | NUR ---
PT RESTING COMFORTABLY IN BED WITH DAUGHTER AT BEDSIDE. PT EATING LUNCH WITH NO SIGNS OF DISCOMFORT OR PAIN. NO RESTLESSNESS PRESENT. KEFLEX GIVEN CRUSHED IN PUDDING. CALL LIGHT WITHIN REACH. BED ALARM ON AND FALL PRECAUTIONS IN PLACE. WILL CONTINUE TO MONITOR.
--- NOTE | 2018-07-02 14:40 | NUR ---
PT CURRENTLY AMBULATING IN HALLWAY WITH DAUGHTER AND 2 CEREAL POPPER ASSIST. FOLLOWING WITH WHEELCHAIR. PT REMAINS PLEASANT AND CALM WITH NO SIGNS OF DISCOMFORT OR PAIN. NO QUESTIONS OR CONCERNS BY DAUGHTER AT THIS TIME. ALL FALL PRECAUTIONS REMAIN IN PLACE. WILL CONTINUE TO MONITOR.
--- NOTE | 2018-07-02 16:45 | NUR ---
PT IN BED AT THIS TIME, STARTING TO GET SOMEWHAT RESTLESS. PT WAS ABLE TO GET HER PILLS DOWN WELL A FEW BITES OF MAC AND CHEESE BEFORE SHE STARTED REFUSING TO OPEN HER MOUTH ANY LONGER. SHE DID DRINK ALL 240 ML OF HER ENSURE. CALL LIGHT WITHIN REACH. BED LOCKED IN LOWEST POSITION WITH BED ALARM AND SEIZURE PADS ON. WILL CONTINUE TO MONITOR.
--- NOTE | 2018-07-02 17:59 | NUR ---
PT VS AND CONDITION STABLE TODAY ON 07/02/18 DAY SHIFT. PT CALM AND COOPERATIVE FOR MAJORITY OF SHIFT BUT HAD A FEW INSTANCES OF RESTLESSNESS AND AGITATION. AMBULATED THE HALLWAY WITH ASSIST WELL TAKEN IN WHEELCHAIR AROUND THE UNIT NUMEROUS TIMES TO HELP RESTLESSNESS. ROOM AIR. NO PIV PRESENT. 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 PILLS CRUSHED IN PUDDING. DAUGHTER AT BEDSIDE MOST OF DAY. REQUIRES FREQUENT ORIENTATION AND DISTRACTION. CALL LIGHT WITHIN REACH. BED LOCKED, LOW AND WITH ALARM ON. SEIZURE PADS IN PLACE. WILL CONTINUE TO MONITOR.
--- NOTE | 2018-07-02 19:05 | NUR ---
REPORT RECEIVED FROM LAUREANO REID. PT RESTING IN BED, SEIZURE PRECAUTIONS IN PLACE. PT APPEARS TO BE RESTING COMFORTABLY.
--- NOTE | 2018-07-02 20:15 | NUR ---
IN TO ASSESS PT. PT APPEARS TO BE RESTING CONTENTLY IN BED, NO SIGNS OF AGGRESSIION. ASSESSMENT COMPLETED. SEIZURE PRECAUTIONS IN PLACE. MAUDE GEORGE IN WITH PT. PT REMAINS IN VIEW OF NURSING STATION.
--- NOTE | 2018-07-03 03:05 | NUR ---
PT RESTING IN BED, EYES CLOSED AND RESPIRATIONS EVEN AND UNLABORED. PT APPEARS TO BE SLEEPING COMFORTABLY. SEIZURE PRECAUTIONS IN PLACE. PT REMAINS IN VIEW OF NURSING STATION.
--- NOTE | 2018-07-03 05:07 | NUR ---
Pt resting in bed, eyes closed and respirations even and unlabored. pt in view of nursing station and appears to be sleeping comfortably.
--- NOTE | 2018-07-03 06:06 | NUR ---
PT APPEARED TO SLEEP WELL THROUGHOUT MAJORITY OF TIP PRINTER. VSS. NO ACUTE CHANGES. PT REMAINS WITHOUT IV ACCESS. REQUIRES ASSISTANCE WITH MEALS/FLUIDS. INCONTINANT OF URINE. SEIZURE PRECAUTIONS IN PLACE. MEDS ARE TAKEN CRUSHED IN PUDDING OR APPLESAUCE. PT REMAINS NONVERBAL WITH RIGHT SIDED WEAKNESS.
--- NOTE | 2018-07-03 07:10 | NUR ---
RECIEVED BEDSIDE REPORT FROM LAUREANO SEGURA. PT IN BED, SEIZURE PADS ON BEDRAILS, FALL PADS NEXT TO BED ON BOTH SIDES, FALL ALARM ON. PT MAKING VOCALIZATIONS, UNINTELIGEBLE, PT SMILING.
--- NOTE | 2018-07-03 08:00 | NUR ---
PT IN BED, ASSISTED TO MOVE UP IN BED USIN DRAW SHEET AND 2 PERSON ASSIST. PT SITTING UPRIGH IN BED, EATING BREAKFAST WITH ASSISTANCE. TOLERANCE FAIR THUS FAR. THIS RN ATTEMPTED TO GIVE AM MEDICATIONS, PT GRABBED SPOON WITH PUDDING WITH MEDICATIONS IN IT, AND THREW SPOON. ASSISTED PT TO CLEAN HAND, WASTED MEDS. NEW AM MEDICATIONS PULLED FROM OyokeyXIS, PT TOOK THESE IN PUDDING FROM THIS RN.
--- NOTE | 2018-07-03 08:59 | NUR ---
PT DRANK 100% OF AN ENSURE, AND ATE 1/2 OF A BLUEBERRY MUFFIN. DECLINED OTHER FOOD OR DRINKS AT BREAKFAST. PT RESTING QUIETLY IN BED WITH EYES CLOSED AT THIS TIME.
--- NOTE | 2018-07-03 09:00 | NUR ---
PATIENT RESTING IN BED WITH EYES CLOSED. ATTENDS CLEAN AND DRY. BED ALARM ON.
--- NOTE | 2018-07-03 09:15 | NUR ---
CALLED MEAGHAN BROWN TO REQUEST AN EVALUATION FOR PATIENT TO RETURN TO FACILITY. SPOKE WITH BEV. HE STATES WET MACHINE TENDER WILL BE NOTIFIED. HE STATES BOTH ARE NOT IN TODAY AND IT WILL BE TOMORROW BEFORE THE EVALUATION CAN PROBABLY BE DONE. STAFF UPDATED.
--- NOTE | 2018-07-03 10:00 | NUR ---
PATIENT UP TO BSC WITH 3 PERSON ASSIST. PATIENT HAD XL BM. PATIENT BACK TO BED WITH SIDERAILS UP SEIZURE PADS ON, FALL PADS ON FLOOR AND BED ALARM ON.
--- NOTE | 2018-07-03 11:19 | NUR ---
PT SLEEPING SOUNDLY IN BED. FALL MATS AND SEIZURE PADS IN PLACE. BED ALARM ON. NO S/S DISTRESS OR DISCOMFORT.
--- NOTE | 2018-07-03 11:51 | NUR ---
PT TOOK ORDERED KEFLEX IN PUDDING WITHOUT ISSUE. TOOK SPOON FROM THIS RN, AND FED HERSELF THE BITES OF PUDDING WITH MEDICATION. PT'S DAUGHTER AT BEDSIDE, FEEDING PT LUNCH NOW. BED RAILS UP, SEIZURE PADS ON, FALL MAT NEXT TO BED, BED ALARM ON.
--- NOTE | 2018-07-03 13:00 | NUR ---
PT IN BED, QUIET, CALM, NO S/S DISTRESS OR DISCOMFORT NOTED.
--- NOTE | 2018-07-03 14:08 | NUR ---
DAUGHTER SLICK IN WITH PT-WORKING TO GET HER TO EAT AND ALWAYS HOPEFUL. PT WOULD OPEN HER EYES WHEN SPOKEN TO, AND GIGGLE SOMEWHAT. SLICK FEELS PT IS GETTING STRONGER, I ENCOURAGED HER TO BE SURE AND TAKE CARE OF HERSELF AND HER FAMILY DURING THIS TIME-SHE ASSURED ME SHE WOULD. EXTENDED A BLESSING, WILL FOLLOW NEEDED
--- NOTE | 2018-07-03 15:34 | NUR ---
Patient was walked by MAUDE Carr & MAUDE Jay.daughter pushed her in the wheele chair to the gift shop, Patient retuned to room . paient back in bed. fresh water was given, patient resting,no other needs at this time
--- NOTE | 2018-07-03 16:16 | NUR ---
PT IN BED, DAUGHTER AT SIDE. GAVE PT SCHEDULED COUMADIN IN PUDDING. NO S/S DISTRESSS OR DISCOMFORT NOTED OR REPORTED.
--- NOTE | 2018-07-03 18:01 | NUR ---
PT REMAINS NON VERBAL, IS HER BASELINE. PT CALM, SMILING AND LAUGHING OR CALM AND QUIET WITH INTERACTIONS WITH STAFF. PT AMBULATED IN HALLS WITH 2 PERSON ASSIST, AND ALSO RODE IN W/C IN HALLS WITH 1 PERSON PUSHING. DAUGHTER WITH PT MOST OF AFTERNOON AND EVENING. PT DRANK ENSURE WITH EACH MEAL, TOLERANCE OF MEALS FAIR. STILL REQUIRES SOMEONE TO FEED HER. STILL A HIGH FALL RISK, ROOM CLOSE TO RN STATION, CURTAIN AND DOOR OPEN, FALL PADS ON FLOOR NEXT TO BED, SEIZURE PADS ON BED RAILS, AND BED AND CHAIR ALARMS UTILIZED THROUGHOUT SHIFT. PT HAD A BM THIS SHIFT. INCONTINENT OF URINE.
--- NOTE | 2018-07-03 19:01 | NUR ---
THIS TAPE MAKER AND LAUREANO MISHRA CHANGED PATIENT, NEW DEPENDS PROVIDED. CALL LIGHT IN REACH. NO FURTHER NEEDS AT THIS TIME.
--- NOTE | 2018-07-03 19:20 | NUR ---
pt resting supine in bed, alert and appears to be resting comfortably. report received from real parker. seizure/fall precautions in place and pt remains in view of nursing station.
--- NOTE | 2018-07-03 21:17 | NUR ---
PT RESTING SUPINE IN BED RESPIRATIONS VISABLE AT 16. SEIZURE PRECAUTIONS IN PLACE. PT IN VIEW OF NURSING STATION.
--- NOTE | 2018-07-03 23:10 | NUR ---
ROUNDED CHARGE. PATIENT IS RESTING IN BED WITH EYES CLOSED, RR 17. CALL LIGHT IN REACH. AND BED ALARM IS ON FOR SAFETY.
--- NOTE | 2018-07-03 23:25 | NUR ---
PT RESTING ON RIGHT LATERAL SIDE, RESPIRATIONS VISABLE AND PT APPEARS TO BE SLEEPING COPMFORTABLY. IN VIEW OF NURSING STATION.
--- NOTE | 2018-07-04 00:35 | NUR ---
FLOAT MAUDE BURNHAM AND I CHANGED WET DEPENDS. BED ALARM ON.
--- NOTE | 2018-07-04 04:05 | NUR ---
pt resting in bed on right lateral side, pt was assisted with drinking some ice water. Pt incontinent of urine, sinta and I assisted her in getting cleaned up and changed into clean attends. pt assisted onto left lateral side and appears to be in no acute distress. Seizure and fall precautions remain in place.
--- NOTE | 2018-07-04 05:45 | NUR ---
PT APPEARED TO SLEEP WELL THROUGH MOST OF NIGHT. PT REMAINS NONVERBAL WHICH IS HER BASELINE. PT TOLORATES PO LIQUIDS WHILE AWAKE. PT REQUIRES ASSISTANCE WITH ORAL INTAKE. SEIZURE PADS ON BED RAILS AND FALL PADS ON EITHER SIDE OF BED WITH BED ALARM ON THIS SHIFT. PT HAS REMAINED IN VIEW OF NURSING STATION THIS SHIFT. PT WAS INCONTINANT OF URINE AND HAD SEVERAL SMALL BM'S. NO IV ACCESS. PT TAKES MEDICATIONS CRUSHED IN PUDDING.
--- NOTE | 2018-07-04 07:20 | NUR ---
SHIFT REPORT RECEIVED FROM DETECTIVE SUPERVISOR RN AT BEDSIDE. PATIENT SLEEPING IN HOSPITAL BED. BED ALARM IN PLACE. RESPIRATIONS EVEN AND UNLABORED. PATIENT APPEARS COMFORTABLE. CALL LIGHT WITHIN REACH.
--- NOTE | 2018-07-04 08:30 | NUR ---
PATIENT SITING UP IN BED. FACE AND HANDS CLEANED. PATIENT FEED. CALL LIGHT WITHIN REACH. BED ALARM ON. NO MORE NEEDS AT THIS TIME.
--- NOTE | 2018-07-04 10:00 | NUR ---
MORNING ASSESSMENT COMPLETE. CHARGE NURSE ADMINISTERED ROUTINE MORNING MEDICATIONS. PATIENT REMAINS NONVERBAL, DOES NOT APPEAR TO BE IN PAIN OR DISTRESS. PATTERN PUNCHER WITH PATIENT IN ROOM, CALL LIGHT WITHIN REACH.
--- NOTE | 2018-07-04 12:03 | NUR ---
SCHEDULED CEPHALEXIN ADMINISTERED. DAUGHTER IN ROOM WITH PATIENT, ASSISTING WITH LUNCH TIME FEEDING. CALL [facility] WITHIN REACH.
--- NOTE | 2018-07-04 12:47 | NUR ---
VISITED [id number] AND SEEMED VERY RESTLESS TODAY PULLING LEGS UP. DAUGHTER SLICK ARRIVED, ARMS FULL OF THINGS FOR THE DAY. VERY PLEASANT, WILL FOLLOW A NEEDED
--- NOTE | 2018-07-04 14:03 | NUR ---
PATIENT WATCHING TELEVISION IN BED, DAUGHTER IN ROOM. RESPIRATIONS EVEN AND UNLABORED. PATIENT REMAINS NONVERBAL, BUT APPEARS COMFORTABLE AND NOT IN PAIN. CALL LIGHT WITHIN REACH.
--- NOTE | 2018-07-04 15:21 | NUR ---
PATIENT'S DAUGHTER TALK TO THE ABOUT A SHOWER AND AGREED TO THE SHOWER IF SHE GETS TO GO FOR A WALK AFTERWARDS. PATIENT TOLERATED SHOWER WELL. PATIENT SAT ON BSC TO TRY AND HAVE A BM. WHEN FISH BUTCHER'S WHERE ASSITING PATIENT OUT OF THE BATHROOM HER DAUGHTER STATED THAT THE PATIENT LOOKS TIERED AND WOULD LIKE FOR HER TO LAY DOWN AND REST BEFORE GOING ON A WALK. PATIENT BACK TO BED WITH SIDE RAILS UP. SEIZURE PADS, FALL PADS, AND BED ALARM ON. NO OTHER NEEDS AT THIS TIME.
--- NOTE | 2018-07-04 16:20 | NUR ---
PATIENT ASLEEP IN BED, RESPIRATIONS EVEN AND UNLABORED. BED ALARM ON. CALL LIGHT WITHIN REACH.SPOKE WITH DAUGHTER ABOUT AMBULATING WITH PATIENT IN HALLWAY LATER THIS AFTERNOON.
--- NOTE | 2018-07-04 18:25 | NUR ---
AFTERNOON MEDICATIONS ADMINISTERED. MEDICATIONS CRUSHED AND GIVEN IN PUDDING. PATIENT'S BLOOD PRESSURE 106/58, DR. FLOREZ NOTIFIED. SCHEDULED 12.5 MG ATENOLOL ADMINISTERED PER 'S VERBAL ORDER. PATIENT AMBULATED IN HALLWAY, ONE PERSON ASSIST WITH USE OF GAIT BELT. PATIENT RETURNED TO BED, BED ALARM ON. CALL LIGHT WITHIN REACH.
--- NOTE | 2018-07-04 19:00 | NUR ---
PATIENT HAD UNEVENTFUL DAY. PATIENT AMBULATED IN HALLWAY ONCE. ROUTINE MEDICATIONS ADMINISTERED, CRUSHED AND IN PUDDING. PATEINT REMAINED NONVERBAL, BUT WAS COMPLIANT WITH CARE. PATIENT ON REGULAR DIET, NEEDS ASSISSTANCE WITH FEEDING. PATIENT INCONTINENT.
--- NOTE | 2018-07-04 19:35 | NUR ---
IN ROOM FOR REPORT, PT IS RESTING WITH EYES CLOSED. BED ALARM IS ON.
--- NOTE | 2018-07-04 20:53 | NUR ---
IN ROOM TO ASSESS PT, SHE WAS HOLDING THE TOP OF HER HEAD AND RESTLESS. ADMINISTERED TYLENOL FOR FLACC OF 5/10 PAIN. PT IS NONVERBAL AND UNABLE TO ANSWER QUESTIONS. SHE WAS REPOSITIONED AND IS NOW RESTING MORE COMFORTABLY IN BED. SHE ATE SOME CHOCOLATE PUDDING AND DRANK SOME WATER. BED ALARM IS ON. PT IS LYING AWAKE IN BED.
--- NOTE | 2018-07-04 22:11 | NUR ---
VITAL SIGNS AND I&O DONE AND CHARTED.
--- NOTE | 2018-07-04 23:01 | NUR ---
PT IS RESTING IN BED WITH HER EYES CLOSED, RESPIRATIONS ARE EVEN AND NONLABORED. BED ALARM IS ON.
--- NOTE | 2018-07-05 00:02 | NUR ---
LAUREANO VILLEGAS AND I CHANGED PATIENT'S ATTENDS AND GOWN SOAKED WITH URINE AND BOWEL MOVEMENT. PATIENT WAS COOPERATIVE AND FOLLOWED DIRECTION. BED ALARM ON. ROOM LIGHT AND TV OFF.
--- NOTE | 2018-07-05 02:14 | NUR ---
PT IS RESTING WITH EYES CLOSED, RESPIRATIONS ARE EVEN AND NONLABORED. CALL LIGHT IS WITHIN REACH.
--- NOTE | 2018-07-05 02:36 | NUR ---
PT TRIED TO GET OUT OF BED AGAIN. THIS TIME SHE STATES SHE HAS A HEADACHE AGAIN. OFFERED HER TYLENOL AND TURNED THE TV ON. ALSO GAVE HER ICECREAM MIXED WITH CHOCLOATE ENSURE. SHE SEEMS CONTENT AT THIS TIME. BED ALARM IS ON.
--- NOTE | 2018-07-05 04:02 | NUR ---
PT IS AWAKE IN BED, WITH EYES OPEN. BED ALARM IS ON.
--- NOTE | 2018-07-05 05:33 | NUR ---
PT SLEPT FOR A GOOD PORTION OF THE NIGHT. SHE HAS BED ALARM ON AND IS VISABLE FROM THE NURSES STATION. SEIZURE PAD ARE IN PLACE WITH RAILS UP. PT HAD A BM TODAY AND SEVERAL INCONTINENT EPISODES AND ATTENDS ARE IN PLACE. SHE HAD PUDDING WITH TYLENOL AND FINISHED THE CUP. PT HAS NO IV ACCESS. PLAN IS FOR MEAGHAN BROWN TO REASSESS HER TUESDAY.
--- NOTE | 2018-07-05 06:45 | NUR ---
PT IS RESTING IN BED WITH EYES OPEN, SHE APPEARS COMFORTABLE AT THIS TIME. BED ALARM IS ON.
--- NOTE | 2018-07-05 07:25 | NUR ---
SHIFT REPORT RECEIVED FROM ELECTRONIC SYSTEMS TECHNICIAN RN AT BEDSIDE. PATIENT AWAKE, LAYING IN BED. BED ALARM IN PLACE. PATIENT REMAINS NONVERBAL. [facility]RE BED PRECAUTIONS IN PLACE. HEEL PROTECTORS IN PLACE. CALL LIGHT WITHIN REACH.
--- NOTE | 2018-07-05 08:10 | NUR ---
MORNING ASSESSMENT AND ROUTINE MEDICATIONS ADMINISTERED. PATIENT IN CHAIR, EATING BREAKFAST WITH ASSISSTANCE FROM BREAKER UP MACHINE OPERATOR. CHAIR ALARM IN PLACE. MEDICATIONS CRUSHED AND GIVEN IN OATMEAL. PATIENT ON ROOM AIR, VSS. CALL LIGHT WITHIN REACH.
--- NOTE | 2018-07-05 10:10 | NUR ---
PATIENT SITTING IN CHAIR, CHAIR ALARM ON. PATIENT IS AWAKE, WATCHING TELEVISION. PATIENT CONTINUES TO BE NONVERBAL, BUT APPEARS TO NOT BE IN PAIN AT THIS TIME. CALL LIGHT WITHIN REACH.
--- NOTE | 2018-07-05 12:00 | NUR ---
SCHEDULED CEPHALEXIN ADMINISTERED. MEDICATION CRUSHED AND GIVEN IN PUDDING. CHAIR ALARM IN PLACE, DAUGHTER ASSISSTING WITH LUNCH TIME FEEDING. CALL LIGHT IN PLACE.
--- NOTE | 2018-07-05 12:50 | NUR ---
PATIENT AMBULATED IN HALLWAY, COMPLETED TWO LAPS. PATIENT AMBULATED VIA 1PA WITH USE OF GAIT BELT. PATIENT NOW IN WHEELCHAIR, BEING PUSHED BY DAUGHTER IN HALLWAY.
--- NOTE | 2018-07-05 14:25 | NUR ---
CAUGHT UP WITH PT AND SLICK. SLICK WAS TAKING PT FOR RIDE IN WHEELCHAIR AN D PT SEEMED TO BE ENJOYING IT. PT NON-VERBAL, MAKING A FEW SOUNDS. EXTENDED A BLESSING, WILL FOLLOW NEEDED
--- NOTE | 2018-07-05 15:00 | NUR ---
PATIENT IN BED, BED ALARM IN PLACE. PATIENT APPEARS COMFORTABLE AND IN NO DISTRESS. PATIENT REMAINS NONVERBAL. RESPIRATIONS EVEN AND UNLABORED. CALL LIGHT WITHIN REACH.
--- NOTE | 2018-07-05 18:15 | NUR ---
PATIENT APPEARS MORE RESTLESS. SAT WITH PATIENT FOR A FEW MINUTES AND ASSISTED PATIENT INTO MORE COMFORTABLE POSITION. PATIENT RELAXED, COVERED WITH BLANKET. SIEZURE PRECAUTIONS IN PLACE, BED ALARM ON. CALL LIGHT WITHIN REACH.
--- NOTE | 2018-07-05 18:51 | NUR ---
PATIENT HAD UNEVENTFUL DAY. VSS, PATIENT ON ROOM AIR. PAIENT IS A 1-2 PA WITH USE OF GAIT BELT. PATIENT CONTINUES TO REMAIN NONVERBAL. MEDICATIONS ADMINISTERED AND CRUSHED IN PUDDING. PATIENT ON REGULAR DIET, BUT NEEDS ASSISTANCE WITH FEEDING, IS KNOWN TO POCKET FOOD.
--- NOTE | 2018-07-05 19:30 | NUR ---
REPORT GIVEN FROM DAYSHIFT. PATIENT CURRENTLY AWAKE AND RESTING QUIETLY IN HER BED. ATTENDS DRY. PATIENT VISIBLE FROM NURSES STATION.
--- NOTE | 2018-07-05 20:15 | NUR ---
PATIENT INCONTINENT STOOL AND URINE. PATIENT CHANGED AND CLEANED AND REPOSITIONED. PATIENT CALM AT THIS TIME.
--- NOTE | 2018-07-05 22:00 | NUR ---
PATIENT RESTING QUIETLY ON HER RIGHT SIDE. PATIENT AWAKE, JUST LOOKING AROUND, BUT CALM.
--- NOTE | 2018-07-05 23:49 | NUR ---
PATIENT INCONTINENT STOOL AND URINE AGAIN. ATTENDS AND LINEN CHANGED AND PATIENT TURNED.
--- NOTE | 2018-07-05 23:52 | NUR ---
LAUREANO LOPEZ AND I CHANGED THE PATIENT' ATTENDS. PATIENT IS INCONTINENT (URINE AND BOWEL MOVEMENT). BED ALARM ON.
--- NOTE | 2018-07-06 00:39 | NUR ---
PATIENT RESTING QUIETLY IN BED, BUT IS STILL AWAKE. DOES NOT APPEAR TO HAVE ANY NEEDS AT THIS TIME.
--- NOTE | 2018-07-06 01:55 | NUR ---
PATIENT BECAME RESTLESS IN BED. ATTEND IS DRY. WHEN PATIENT WAS ASKED IF SHE HAD PAIN. PATIENT SHOOK HER HEAD YES. PATIENT GIVEN PRN TYLENOL PER ORDER. BED ALARM ON FOR SAFETY. CALL LIGHT IN REACH.
--- NOTE | 2018-07-06 04:18 | NUR ---
PATIENT RESTING QUEITLY IN BED. MOVING AND TURNING HERSELF BACK AND FORTH IN BED. NOT RESTLESS JUST MOVING.
--- NOTE | 2018-07-06 06:50 | NUR ---
PATIENT HAS DOSED PERIODICALLY THROUGH THE NIGHT, BUT HAS BEEN AWAKE MOST OF THE NIGHT.
--- NOTE | 2018-07-06 06:58 | NUR ---
SHIFT REPORT RECEIVED FROM NIGHT RN AT BEDSIDE. PATIENT AWAKE AND SMILING. RESPIRATIONS EVEN AND UNLABORED. PATIENT NONVERBAL. BED ALARM ON. [facility] BED PRECAUTIONS IN PLACE. CALL LIGHT WITHIN REACH.
--- NOTE | 2018-07-06 08:45 | NUR ---
PT 1PA TO WALK IN [place] WITHGAIT BELT. PT TOLERATED WALKING 2 LAPS. PERICARE AND BED CHANGE COMPLETED. HAND BRACE PLACED. BED ALARM IN PLACE.
--- NOTE | 2018-07-06 09:36 | NUR ---
pt walked with RN. pt resting in bed safely.
--- NOTE | 2018-07-06 09:55 | NUR ---
MORNING ASSESSMENT AND ROUTINE MEDICATIONS ADMINISTERED. MORNING MEDICATIONS CRUSHED AND ADMINISTERED IN PUDDING. PATIENT REMAINS NONVERBAL, BUT COMPLIANT WITH FOLLOWING DIRECTIONS. PATIENT IN BED, BED ALARM ON. CALL LIGHT WITHIN REACH.
--- NOTE | 2018-07-06 12:03 | NUR ---
NOON DOSE OF CEPHALEXIN ADMINISTERED. MEDICATION CRUSHED AND ADMINISTERED IN PUDDING. DAUGHTER IN ROOM, ASSISTING WITH PATIENT WITH LUNCH. CALL LIGHT WITHIN REACH.
--- NOTE | 2018-07-06 13:10 | NUR ---
DAUGHTER IN ROOM WITH PATIENT. PATIENT IN BED VISITING WITH DAUGHTER AND WATCHING TELEVISION. RESPIRATIONS EVEN AND UNLABORED. PATIENT APPEARS COMFORTABLE. CALL LIGHT WITHIN REACH.
--- NOTE | 2018-07-06 14:04 | NUR ---
pt daughter is room with her. pt resting peaceful.
--- NOTE | 2018-07-06 16:20 | NUR ---
BLOOD PRESSURE OF 114/67, MAP OF 75. REPEAT BLOOD PRESSURE OF 106/48, MAP OF 62. DR FLOREZ MADE AWARE. AFTERNOON DOSE OF 12.5 MG ATENOLOL HELD PER VERBAL ORDERS BY DR FLOREZ. ALL OTHER ROUTINE AFTERNOON MEDICATIONS ADMINISTERED. CALL LIGHT WITHIN REACH.
--- NOTE | 2018-07-06 17:15 | NUR ---
PT ASSISTED TO CHAIR FOR DINNER. PT DRANK 100% OF ENSURE, SLOWLY EATING MAC & CHEESE. PT AGGITATED, UNCOOPERATIVE. NURSE AIDE TO SIT WITH PT AND ASSIST WITH DINNER.
--- NOTE | 2018-07-06 17:20 | NUR ---
pt is sitting in chair. chair alarm is on.
--- NOTE | 2018-07-06 17:50 | NUR ---
PT ASSISTED TO BED, PERICARE PERFORMED, SMALL SMEAR. BARRIER CREAM APPLIED. PT WITH REDNESS AND DISCHARGE TO [facility], NIO ORDER FOR NYSTATIN POWDER. BED ALARM IN PLACE.
--- NOTE | 2018-07-06 18:53 | NUR ---
PATIENT HAD UNEVENTFUL DAY. PATIENT IS STILL NONVERBAL AND DISPLAYS SEVERE DEMENTIA AT BASELINE. MORNING MEDICATIONS CRUSHED AND GIVEN IN PUDDING. ALL AFTERNOON MEDICATIONS ADMINISTERED WITH THE EXCEPT OF ATENOLOL DUE TO A LOW BLOOD PRESSURE OF 106/48, MAP OF 62. PATIENT IS A ONE PERSON ASSIST WITH THE USE OF A GAIT BELT. PATIENT AMBULATED IN THE HALLWAY IN THE AFTERNOON WITH A 1PA. SIEZURE PRECAUTIONS IN PLACE.
--- NOTE | 2018-07-06 20:00 | NUR ---
PATIENT INCONTINENET URINE AND STOOL. PATIENT WASHED UP, ATTENDS CHANGED, LINEN CHANGED AND PATIENT PEACEFUL AT THIS TIME.
--- NOTE | 2018-07-06 22:00 | NUR ---
PATIENT MORE ACTIVE NOW. SWING HER LEGS OUT OF BED OVER THE SEIZURE PADS. TAKING OFF ATTENDS AND GOWN. PATIENT REDIRECTED AND REPOSITIONED AND REDRESSED. PATIENT VISIBLE FROM THE NURSES STATION.
--- NOTE | 2018-07-06 22:10 | NUR ---
charge nurse rounding note: Pt continues on swing bed status, seizure pads on bed rails, calm at this time, call lihgt at hands reach, bed alarm on
--- NOTE | 2018-07-07 00:30 | NUR ---
PATIENT STILL TRYING TO SWING HER LEGS OVER THE SEIZURE PADS AND BED RAILS. PATIENT'S ATTENDS ARE STILL DRY. SEIZURE PADS REINFORCED WITH PILLOWS AND PATIENT COVERED UP WITH WARM BLANKETS AND WAS GIVEN SOME PO TYLENOL FOR GENERAL DISCOMFORT. PATIENT CALM AT THIS TIME AND RESTING.
--- NOTE | 2018-07-07 02:11 | NUR ---
PATIENT CURRENTLY RESTING QUIETLY SUPINE IN BED. EYES CLOSED. RESPIRATIONS REGULAR AND EVEN. PATIENT CAN BE SEEN FROM THE NURSES DESK.
--- NOTE | 2018-07-07 02:50 | NUR ---
PATIENT WAS INCONTINENT STOOL AND WAS WASHED UP, ATTENDS CHANGED, [place], AND PATIENT IS CURRRENTLY RESTING QUIETLY.
--- NOTE | 2018-07-07 04:11 | NUR ---
PATIENT AWAKE AND JUST FIDGITING IN BED WITH HER BLANKETS AND PILLOWS. NO DISTRESS NOTED. PATIENT VISIBLE FROM NURSES DESK.
--- NOTE | 2018-07-07 05:19 | NUR ---
PATIENT INCONTINENT STOOL AND URINE X 3 THIS SHIFT. PATIENT DID SLEEP A LITTLE WHILE AFTER GETTING SOME TYLENOL, BUT FOR MOST OF THE NIGHT THE PATIENT HAS TRIED TO GET OUT OF BED. PATIENT HAS NO IV, LUNGS CLEAR, BOWELTONES X4. ALWAYS TRYING TO TAKE ATTENDS OFF. FOOT PROTECTORS ON. IT WAS REPORTED TO ME FROM DAYSHIFT PATIENT SHOULD GO BACK TO [facility] TODAY.
--- NOTE | 2018-07-07 07:34 | NUR ---
RECIEVED BEDSIDE REPORT FROM [facility]. PT AWAKE IN BED, TOSSING AND TURNING. PT NONVERBAL, APPEARS SLEEPY. KICKED HEEL PROTECTORS OFF.
--- NOTE | 2018-07-07 08:01 | NUR ---
SLICK IN WITH PT TRYING TO READ HER THE NEWSPAPER, AND SHOW PICTURES. PT IS NOT TO COOPERATIVE THIS MORNING. DAUGHTER SLICK IS SO VERY PATIENT WITH PT. WILL FOLLOW NEEDED
--- NOTE | 2018-07-07 09:03 | NUR ---
PT AGGITATED. TOOL SHARPENER TOOK PT ON WHEELCHAIR RIDE WHICH CALMED HER DOWN. PT TOOK DEPAKOKE AND ABX. WILL ATTEMT OTHER MEDS AT A LATER TIME. [facility] IN ROOM FOR ASSESSMENT. PT LINENS CHANGED, PT ATTEND CHANGED. INCONT STOOL AND URINE.
--- NOTE | 2018-07-07 11:27 | NUR ---
PATIENT WAS IN BED VERY AGGITATED THIS MORNING,RN AND MAUDE MONTGOMERY GOT HER UP IN WHEELE CHAIR, MAUDE MONTGOMERY AND MARCO PUSHED HER AROUND THE HALLS. FOR AWHILE, HUBER CAME TO SEE HER, SAT UP FOR A WHILE IN WHEEL CHAIR, PATIENT IS NOW BACK IN BED RESTING, CALL LIGHT IN REACH. DAUGHTER IN ROOM, NO OTHER NEEDS AT THIS TIME.
--- NOTE | 2018-07-07 11:35 | NUR ---
PT SLEEPING FOR SEVERAL HOURS. DAUGHTER AT BEDSIDE. UNABLE TO GET PT TO TAKE REMAINING MEDICATION.
--- NOTE | 2018-07-07 11:51 | NUR ---
PT HAS BEEN SLEEPING SINCE [facility] ASSESSMENT THIS MORNING. PT REMAINED CALM. DAUGHTER AT BEDSIDE. RN CHECKED IN WITH DAUGHTER, WHO HAS NO COMPLAINTS OR CONCERNS AT THIS TIME. PT'S DAUGHTER WILL ASSIST HER WITH EATING LUNCH.
--- NOTE | 2018-07-07 12:03 | NUR ---
DAUGHTER IN WITH PT, READING TO HER. PT TO BE DC'D TO [facility] TODAY. EXTENDED A BLESSING, THIS HAS BEEN A CHALLENGE FOR FAMILY.
[2018-07-07] MEDS ORDERED: DIGOX125 MCG PO (12:16)
[2018-07-07] MEDS ORDERED: ATENOLOL25 MG PO (12:19)
[2018-07-07] MEDS ORDERED: QUETIAPINE FUMA25 MG PO ×2 (12:20→12:21)
[2018-07-07] MEDS ORDERED: LIPITOR10 MG GT (12:39)
[2018-07-07] MEDS ORDERED: LEVOTHYROXINE200 MCG PO (13:03)
[2018-07-07] MEDS ORDERED: OMEPRAZOLE MAGN20 MG PO (13:03)
--- NOTE | 2018-07-07 13:24 | NUR ---
DISCHARGE TEACHING COMPLETE. DISCUSSED WITH PT'S DAUGHTER DIET, MEDICATIONS, AND WHEN TO FOLLOW UP WITH MD. DAUGHTER VERBALIZED UNDERSTANDING, PRINTED ORDERS AND RX PLACED IN ENVENLOPE FOR [facility]. DAUGHTER VERBALIZED PLAN OF CARE TO GIVE ORDERS TO FACILITY SUMIT.
[2018-07-08] MEDS ORDERED: COUMADIN4 MG PO (12:48)
== END 2018-07-07 13:55 | disposition home or self-care (01) | DRG 66 ==
LOC: MS 12:19
PROVIDERS: ADMIT Student in an Organized Health Care Education/Training Program
DX: I63.9 Cerebral infarction, unspecified (principal); R53.81 Other malaise; F03.90 Unspecified dementia, unspecified severity, without behavioral disturbance, psychotic disturbance, mood disturbance, and anxiety; I48.91 Unspecified atrial fibrillation; Z79.01 Long term (current) use of anticoagulants; F39 Unspecified mood [affective] disorder; G40.909 Epilepsy, unspecified, not intractable, without status epilepticus; E03.9 Hypothyroidism, unspecified
CPT/HCPCS: 36415; 51798; 85610; 93005; 93010; 97110; 97112; 97116; 97162; 97166; 97530; 97535; 97760

== ENCOUNTER 2018-07-07 20:34 | Emergency (ER) | payer MEDICARE, OTHER ==
[~2018-07-07] VITALS: Ht 165.1 cm; Wt 61.5 kg
[~2018-07-07 20:34] MED LIST changes: +DIGOX125 MCG PO; +LIPITOR10 MG GT; +OMEPRAZOLE MAGN20 MG PO; +QUETIAPINE FUMA25 MG PO
--- OUTSIDE RECORDS SUMMARY | 2018-07-07 20:40 | XMS ---
PreManage Notification: AZALEA POLLARD Security Asset Protection Associate Events No recent Security Events currently on file CRITERIA MET - Group Notification - 6 ED Visits in 6 Months - [facility] - 2 Visits in 30 Days CARE PROVIDERS ADIN ARIZA Family [facility] 04/28/2018-Current PHONE: [phone] Samir Ratliff DO Treatment Current PHONE: Unknown Edenilson has no Care Guidelines for this patient. Care History Medical/Surgical 02/06/2018 [facility] - CHW talked with Yarely from [facility]. Patient is hard to get care for since she is resistant to it. Patient has advanced dementia. - Concerns with Dr Ratliff leaving and having the clinic take over responsibility of care. Yarely stated patient daughter comes during the weekends only and patient needs to be seen during the week by the PCP. Dr Ratliff just visited patient recently at the facility. - For future help CHW suggested all blood draws and urine collections be done at [facility] through [facility], orders would have to be placed by PCP. - If daughter is with patient please discuss with the daughter the ED usage and what the patient should be seeing the PCP for. Care Recommendation: This patient has had 5 or more Emergency Department visits in the last 12 months. Patient requires education on the scope and purpose of the ED as an acute care provider not a Primary Care Provider and should not be utilized for chronic conditions. If patient returns to ED please contact Community Health WorkerNasrin at [phone]. These are guidelines and the provider should exercise clinical judgment when providing care. E.D. VISIT COUNT (12 MO.) 10 JEREMY Siddiqui TOTAL 10 NOTE: Visits indicate total known visits. ED/C VISIT TRACKING (12 MO.) 07/07/2018 20:35 J[facility]EMY Siddiqui [place] TYPE: Emergency COMPLAINT: - ABD PAIN 06/18/2018 16:41 JEREMY Aleg[place] TYPE: Emergency COMPLAINT: - FALL/HEAD INJURY 06/18/2018 02:40 JEREMY [place] TYPE: Emergency COMPLAINT: - FALL/FACIAL LAC DIAGNOSES: - Unspecified fall, initial encounter - Laceration without foreign body of left cheek and temporomandibular area, initial encounter - Unspecified injury of head, initial encounter 06/17/2018 21:53 [facility]EREMY [place] TYPE: Emergency COMPLAINT: - FALL DIAGNOSES: - Unspecified atrial fibrillation - Contusion of other part of head, initial encounter - Other prison (current) drug therapy - Unspecified dementia without behavioral disturbance - exterminator (current) use of anticoagulants - Hypothyroidism, unspecified - Fall on same level, unspecified, initial encounter - Migraine, unspecified, not intractable, without status migrainosus 04/27/2018 10:19 [facility]EREMY [place] TYPE: Emergency COMPLAINT: - FALL DIAGNOSES: - Other salvage determiner (current) drug therapy - Abrasion of scalp, initial encounter - Unspecified dementia without behavioral disturbance - Chronic atrial fibrillation - Fall on same level, unspecified, initial encounter - exterminator (current) use of anticoagulants - Unspecified superficial injury of unspecified part of head, initial encounter - Hypothyroidism, unspecified - Unspecified injury of head, initial encounter - Epilepsy, unspecified, not intractable, without status epilepticus 02/13/2018 10:34 [facility]EREMY [place] TYPE: Emergency COMPLAINT: - WEAKNESS 02/04/2018 15:17 JEREMY [place] TYPE: Emergency COMPLAINT: - WEAKNESS DIAGNOSES: - Weakness - Other prison (current) drug therapy - Urinary tract infection, site not specified - Unspecified dementia without behavioral disturbance 11/29/2017 17:22 [facility]EREMY [place] TYPE: Emergency COMPLAINT: - FALL DIAGNOSES: - Encounter for examination and observation following other accident - Fall on same level from slipping, tripping and stumbling with subsequent striking against unspecified object, initial encounter - Hypothyroidism, unspecified - Other prison (current) drug therapy - [facility] (current) use of anticoagulants - Unspecified atrial fibrillation - Unspecified dementia without behavioral disturbance - Epilepsy, unspecified, not intractable, without status epilepticus 10/29/2017 15:14 JEREMY [place] TYPE: Emergency COMPLAINT: - LETHARGIC DIAGNOSES: - Acquired absence of other specified parts of digestive tract - Unspecified atrial fibrillation - Altered mental status, unspecified - Personal history of malignant neoplasm of unspecified digestive organ - [facility] (current) use of anticoagulants - Epilepsy, unspecified, not intractable, without status epilepticus - Urinary tract infection, site not specified - Other prison (current) drug therapy - Personal history of transient ischemic attack (TIA), and cerebral infarction without residual deficits - Personal history of urinary (tract) infections - Hypothyroidism, unspecified - Other specified postprocedural states - OTHER SPECIFIED POSTPROCEDURAL STATES - Weakness - Presence of cardiac pacemaker 09/27/2017 20:02 JEREMY [place]leg[place] TYPE: Emergency COMPLAINT: - FALL DIAGNOSES: - Personal history of malignant neoplasm of unspecified digestive organ - Abrasion of other part of head, initial encounter - Personal history of urinary (tract) infections - exterminator (current) use of anticoagulants - Epilepsy, unspecified, not intractable, without status epilepticus - Unspecified atrial fibrillation - Personal history of transient ischemic attack (TIA), and cerebral infarction without residual deficits - Unspecified injury of head, initial encounter - Fall on same level, unspecified, initial encounter INPATIENT VISIT TRACKING (12 MO.) No inpatient visits to display in this time frame [email or web address]
[2018-07-08] MEDS ORDERED: COUMADIN4 MG PO (12:48)
== END 2018-07-07 22:38 | disposition home or self-care (01) ==
LOC: ED 20:34
PROC: 0T9B70Z Drainage of Bladder with Drainage Device, Via Natural or Artificial Opening (ICD-10-PCS; principal; 2018-07-07)
DX: R10.9 Unspecified abdominal pain (principal); R45.1 Restlessness and agitation; F03.90 Unspecified dementia, unspecified severity, without behavioral disturbance, psychotic disturbance, mood disturbance, and anxiety; G40.909 Epilepsy, unspecified, not intractable, without status epilepticus; E03.9 Hypothyroidism, unspecified; Z79.899 Other long term (current) drug therapy
CPT/HCPCS: 51701; 74177; 80053; 81001; 83690; 85025; 99284; Q9967

== ENCOUNTER 2019-01-26 21:01 | Emergency (ER) | payer MEDICARE, OTHER ==
[~2019-01-26] VITALS: Ht 165.1 cm; Wt 61.5 kg
--- OUTSIDE RECORDS SUMMARY | 2019-01-26 21:04 | XMS ---
PreManage Notification: AZALEA POLLARD Security Rating Officer Events No recent Security Events currently on file CRITERIA MET - Group Notification - [facility] - Has Care Guidelines - PDMP CARE PROVIDERS ADIN ARIZA [facility] 04/28/2018-Current PHONE: Unknown Samir Ratliff DO Treatment Current PHONE: Unknown Edenilson has no Care Guidelines for this patient. Care History Medical/Surgical 02/06/2018 [facility] - CHW talked with Yarely from [facility]. Patient is hard to get care for [...] draws and urine collections be done at [facility] through [facility], orders would have to be [...] returns to ED please contact Community Health Worker Nasrin at [phone]. These are guidelines and the provider should exercise clinical judgment when providing care. E.D. VISIT COUNT (12 MO.) 8 JEREMY Siddiqui TOTAL 8 NOTE: Visits indicate total known visits. ED/C VISIT TRACKING (12 MO.) 01/26/2019 21:01 JEREMY Aleg[place] TYPE: Emergency COMPLAINT: - FALL/HEAD INJURY 07/07/2018 20:35 JEREMY [place] TYPE: Emergency COMPLAINT: - ABD PAIN DIAGNOSES: - Unspecified dementia without behavioral disturbance - Restlessness and agitation - Hypothyroidism, unspecified - Other long term care pharmacist (current) drug therapy - Epilepsy, unspecified, not intractable, without status epilepticus - Unspecified abdominal pain - Abdominal distension (gaseous) 06/18/2018 16:41 JEREMY Aleg[place] TYPE: Emergency [...] part of head, initial encounter - Other half-way (current) drug therapy - Unspecified dementia without behavioral disturbance - assistant terminal manager (current) use of anticoagulants - Hypothyroidism, unspecified - Fall on same level, unspecified, initial encounter - Migraine, unspecified, not intractable, without status migrainosus 04/27/2018 10:19 JEREMY Aleg[place] TYPE: Emergency COMPLAINT: - FALL DIAGNOSES: - Other half-way (current) drug therapy - Abrasion of scalp, initial encounter - Unspecified dementia without behavioral disturbance - Chronic atrial fibrillation - Fall on same level, unspecified, initial encounter - [facility] (current) use of anticoagulants - Unspecified superficial injury of unspecified part of head, initial encounter - Hypothyroidism, unspecified - Unspecified injury of head, initial encounter - Epilepsy, unspecified, not intractable, without status epilepticus 02/13/2018 10:34 JEREMY [place]leg[place] TYPE: Emergency COMPLAINT: - WEAKNESS 02/04/2018 15:17 JEREMY Aleg[place] TYPE: Emergency COMPLAINT: - WEAKNESS DIAGNOSES: - Weakness - Other half-way (current) drug therapy - Urinary tract infection, site not specified - Unspecified dementia without behavioral disturbance INPATIENT VISIT TRACKING (12 MO.) 06/23/2018 12:19 JEREMY Alegria [place] TYPE: Medical Surgical COMPLAINT: - SUB ACUTE STROKE DIAGNOSES: - Unspecified atrial fibrillation - assistant terminal manager (current) use of anticoagulants - Other malaise - Cerebral infarction, unspecified - Unspecified dementia without behavioral disturbance - Epilepsy, unspecified, not intractable, without status epilepticus - Unspecified mood [affective] disorder - Hypothyroidism, unspecified 06/18/2018 18:39 JEREMY Aleg[place] TYPE: Medical Surgical COMPLAINT: - SUB ACUTE STROKE DIAGNOSES: - Unspecified symptoms and signs involving cognitive functions following unspecified cerebrovascular disease - Other encephalopathy - Cerebral infarction, unspecified - assistant terminal manager (current) use of opiate analgesic - Aphasia - [facility] (current) use of anticoagulants - Unspecified atrial fibrillation - Do not resuscitate - Unspecified mood [affective] disorder - Epilepsy, unspecified, not intractable, without status epilepticus - Other long term care pharmacist (current) drug therapy - Repeated falls - Hypothyroidism, unspecified - Unsteadiness on feet - Vascular dementia without behavioral disturbance 02/13/2018 17:16 JEREMY Alegria [place] TYPE: Medical Surgical COMPLAINT: - SEVERE SEPSIS DIAGNOSES: - Sepsis, unspecified organism - Gastro-esophageal reflux disease without esophagitis - Presence of cardiac pacemaker - Personal history of transient ischemic attack (TIA), and cerebral infarction without residual deficits - Sepsis due to Escherichia coli [E. coli] - Other constipation - Chronic atrial fibrillation - Epilepsy, unspecified, not intractable, without status epilepticus - Unspecified mood [affective] disorder - Abdominal distension (gaseous) - assistant terminal manager (current) use of anticoagulants - Urinary tract infection, site not specified - Unspecified dementia with behavioral disturbance - Severe sepsis without septic shock - Hypothyroidism, unspecified [email or web address]
== END 2019-01-26 21:57 | disposition home or self-care (01) ==
LOC: ED 21:01
DX: Z04.3 Encounter for examination and observation following other accident (principal); F03.90 Unspecified dementia, unspecified severity, without behavioral disturbance, psychotic disturbance, mood disturbance, and anxiety; I48.91 Unspecified atrial fibrillation; G40.909 Epilepsy, unspecified, not intractable, without status epilepticus; E03.9 Hypothyroidism, unspecified; I69.959 Hemiplegia and hemiparesis following unspecified cerebrovascular disease affecting unspecified side; Z95.0 Presence of cardiac pacemaker; Z79.01 Long term (current) use of anticoagulants; Z79.899 Other long term (current) drug therapy; W06.XXXA Fall from bed, initial encounter
CPT/HCPCS: 36415; 80053; 85025; 85610; 85730; 99283

== ENCOUNTER 2019-02-17 00:34 | Emergency (ER) | payer MEDICARE, OTHER ==
[~2019-02-17] VITALS: Ht 165.1 cm; Wt 61.5 kg
--- OUTSIDE RECORDS SUMMARY | 2019-02-17 00:36 | XMS ---
PreManage Notification: AZALEA POLLARD Security Production Team Advisor Events No recent Security Events currently on file CRITERIA MET - Group Notification - - Has Care Guidelines - PDMP - - 2 Visits in 30 Days CARE PROVIDERS ADIN ARIZA [facility] 04/28/2018-Current PHONE: Unknown Samir Ratliff DO Treatment Current PHONE: Unknown Edenilson has no Care Guidelines for this patient. Care History Medical/Surgical 02/06/2018 [facility] - CHW talked with Yarely from [facility]. Patient is hard to get care for [...] draws and urine collections be done at [facility] through [facility], orders would have to be [...] ED please contact Community Health WorkerNasrin at [phone]. These are guidelines and the provider should exercise clinical judgment when providing care. E.D. VISIT COUNT (12 MO.) 7 JEREMY Siddiqui TOTAL 7 NOTE: Visits indicate total known visits. 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 - Presence of cardiac pacemaker - Encounter for examination and observation following other accident - Unspecified dementia without behavioral disturbance - Hypothyroidism, unspecified - Other halfway (current) drug therapy - keno terminal operator (current) use of anticoagulants - Epilepsy, unspecified, not intractable, without status epilepticus 07/07/2018 20:35 JEREMY Aleg[place] TYPE: Emergency COMPLAINT: - ABD PAIN DIAGNOSES: - Unspecified dementia without behavioral disturbance - Restlessness and agitation - Hypothyroidism, unspecified - Other halfway (current) drug therapy - Epilepsy, unspecified, not [...] part of head, initial encounter - Other manager long term care (current) drug therapy - Unspecified dementia without behavioral disturbance - keno terminal operator (current) use of anticoagulants - Hypothyroidism, unspecified - Fall on same level, unspecified, initial encounter - Migraine, unspecified, not intractable, without status migrainosus 04/27/2018 10:19 JEREMY [place] TYPE: Emergency COMPLAINT: - FALL DIAGNOSES: - Other manager long term care (current) drug therapy - Abrasion of scalp, initial encounter - Unspecified dementia without behavioral disturbance - Chronic atrial fibrillation - Fall on same level, unspecified, initial encounter - alf (current) use of anticoagulants - Unspecified superficial injury of unspecified part of head, initial encounter - Hypothyroidism, unspecified - Unspecified injury of head, initial encounter - Epilepsy, unspecified, not intractable, without status epilepticus INPATIENT VISIT TRACKING (12 MO.) 06/23/2018 12:19 JEREMY [place]leg[place] TYPE: Medical Surgical COMPLAINT: - SUB ACUTE STROKE DIAGNOSES: - Unspecified atrial fibrillation - alf (current) use of anticoagulants - Other malaise [...] Other encephalopathy - Cerebral infarction, unspecified - alf (current) use of opiate analgesic - Aphasia - alf (current) use of anticoagulants - Unspecified atrial fibrillation - Do not resuscitate - Unspecified mood [affective] disorder - Epilepsy, unspecified, not intractable, without status epilepticus - Other halfway (current) drug therapy - Repeated falls - Hypothyroidism, unspecified - Unsteadiness on feet - Vascular dementia without behavioral disturbance [email or web address]
--- NOTE | 2019-02-17 18:45 | EKG ---
[facility] [address] [place] [address] Signed Atrial fibrillation with rapid ventricular response with premature ventricular or aberrantly conducted complexes Abnormal ECG When compared with ECG of 24-JUN-2018 12:04, Vent. rate has increased BY 41 BPM T wave inversion now evident in Inferior leads Confirmed by ELISA FLOREZ DO ([id number]) on 02/17/2019 6:45:12 PM Electronically Signed By: ELISA FLOREZ DO 02/17/19 1845 PATIENT NAME: ARPAN POLLARDHENRIK [place] Electrocardiogram DATE OF : 35 PHYSICIAN: ELISA FLOREZ DO REPORT #: [id number] REPORT IS CONFIDENTIAL AND NOT TO BE RELEASED WITHOUT AUTHORIZATION
== END 2019-02-17 02:47 | disposition home or self-care (01) ==
LOC: ED 00:34
PROC: 0T9B70Z Drainage of Bladder with Drainage Device, Via Natural or Artificial Opening (ICD-10-PCS; principal; 2019-02-17)
DX: R55 Syncope and collapse (principal); F03.90 Unspecified dementia, unspecified severity, without behavioral disturbance, psychotic disturbance, mood disturbance, and anxiety; I48.91 Unspecified atrial fibrillation; G40.909 Epilepsy, unspecified, not intractable, without status epilepticus; E03.9 Hypothyroidism, unspecified; Z86.73 Personal history of transient ischemic attack (TIA), and cerebral infarction without residual deficits; Z85.00 Personal history of malignant neoplasm of unspecified digestive organ; Z95.0 Presence of cardiac pacemaker; Z79.899 Other long term (current) drug therapy; W18.30XA Fall on same level, unspecified, initial encounter
CPT/HCPCS: 51701; 80053; 80162; 81001; 85025; 85610; 85730; 93005; 93010; 99284-25

== ENCOUNTER 2019-03-25 19:46 | Emergency (ER) | payer MEDICARE, OTHER ==
[~2019-03-25] VITALS: Ht 165.1 cm; Wt 61.5 kg
--- OUTSIDE RECORDS SUMMARY | 2019-03-25 19:50 | XMS ---
PreManage Notification: AZALEA POLLARD Security Tobacco Warehouse Agent Events No recent Security Events currently on file CRITERIA MET - Group Notification - [facility] - Has Care Guidelines - PDMP CARE PROVIDERS ADIN ARIZA [facility] 04/28/2018-Current PHONE: Unknown Samir Ratliff DO Treatment Current PHONE: Unknown Edenilson has no Care Guidelines for this patient. Care History Medical/Surgical 02/06/2018 [facility] - CHW talked with Yarely from [facility]. Patient is hard to get care for [...] draws and urine collections be done at [facility] through [facility], orders would have to be [...] please contact Community Health Worker Nasrin at [phone]. These are guidelines and the provider should exercise clinical judgment when providing care. E.D. VISIT COUNT (12 MO.) 8 JEREMY Siddiqui TOTAL 8 NOTE: Visits indicate total known visits. ED/C VISIT TRACKING (12 MO.) 03/25/2019 19:47 JEREMY [place] TYPE: Emergency COMPLAINT: - CUT FINGER 02/17/2019 00:35 JEREMY Aleg[place] TYPE: Emergency COMPLAINT: - GLF DIAGNOSES: - Personal history of malignant neoplasm of unspecified digestive organ - Other electronic publisher (current) drug therapy - Personal history of transient ischemic attack (TIA), and cerebral infarction without residual deficits - Hypothyroidism, unspecified - Syncope and collapse - Unspecified dementia without behavioral disturbance - Fall on same level, unspecified, initial encounter - Presence of cardiac pacemaker - Epilepsy, unspecified, not intractable, without status epilepticus - Unspecified atrial fibrillation 01/26/2019 21:01 JEREMY [place] TYPE: Emergency COMPLAINT: - FALL/HEAD INJURY DIAGNOSES: - Unspecified atrial fibrillation - Fall from bed, initial encounter - 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 - Presence of cardiac pacemaker - Encounter for examination and observation following other accident - Unspecified dementia without behavioral disturbance - Hypothyroidism, unspecified - Other correction (current) drug therapy - assisted (current) use of anticoagulants - Epilepsy, unspecified, not intractable, without status epilepticus 07/07/2018 20:35 JEREMY MorganDennise [place] TYPE: Emergency COMPLAINT: - ABD PAIN DIAGNOSES: - Unspecified dementia without behavioral disturbance - Restlessness and agitation - Hypothyroidism, unspecified - Other electronic publisher (current) drug therapy - Epilepsy, unspecified, not [...] part of head, initial encounter - Other electronic publisher (current) drug therapy - Unspecified dementia without behavioral disturbance - assisted (current) use of anticoagulants - Hypothyroidism, unspecified - Fall on same level, unspecified, initial encounter - Migraine, unspecified, not intractable, without status migrainosus 04/27/2018 10:19 JEREMY Aleg[place] TYPE: Emergency COMPLAINT: - FALL DIAGNOSES: - Other electronic publisher (current) drug therapy - Abrasion of scalp, initial encounter - Unspecified dementia without behavioral disturbance - Chronic atrial fibrillation - Fall on same level, unspecified, initial encounter - database administrator (current) use of anticoagulants - Unspecified superficial injury of unspecified part of head, initial encounter - Hypothyroidism, unspecified - Unspecified injury of head, initial encounter - Epilepsy, unspecified, not intractable, without status epilepticus INPATIENT VISIT TRACKING (12 MO.) 06/23/2018 12:19 JEREMY Aleg[place] TYPE: Medical Surgical COMPLAINT: - SUB ACUTE STROKE DIAGNOSES: - Unspecified atrial fibrillation - assisted (current) use of anticoagulants - Other malaise - Cerebral infarction, unspecified - Unspecified dementia without behavioral disturbance - Epilepsy, unspecified, not intractable, without status epilepticus - Unspecified mood [affective] disorder - Hypothyroidism, unspecified 06/18/2018 18:[address] [facility] [place] TYPE: Medical Surgical COMPLAINT: - SUB ACUTE STROKE DIAGNOSES: - Unspecified symptoms and signs involving cognitive functions following unspecified cerebrovascular disease - Other encephalopathy - Cerebral infarction, unspecified - database administrator (current) use of opiate analgesic - Aphasia - assisted (current) use of anticoagulants - Unspecified atrial fibrillation - Do not resuscitate - Unspecified mood [affective] disorder - Epilepsy, unspecified, not intractable, without status epilepticus - Other electronic publisher (current) drug therapy - Repeated falls - Hypothyroidism, unspecified - Unsteadiness on feet - 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
== END 2019-03-25 20:30 | disposition home or self-care (01) ==
LOC: ED 19:46
DX: S61.212A Laceration without foreign body of right middle finger without damage to nail, initial encounter (principal); E03.9 Hypothyroidism, unspecified; I48.91 Unspecified atrial fibrillation; F03.90 Unspecified dementia, unspecified severity, without behavioral disturbance, psychotic disturbance, mood disturbance, and anxiety; Z86.73 Personal history of transient ischemic attack (TIA), and cerebral infarction without residual deficits; Z90.49 Acquired absence of other specified parts of digestive tract; Z95.0 Presence of cardiac pacemaker; Z79.899 Other long term (current) drug therapy; W45.8XXA Other foreign body or object entering through skin, initial encounter
CPT/HCPCS: 90471; 90715; 99282-25

== ENCOUNTER 2019-04-17 18:17 | Emergency (ER) | payer MEDICARE, OTHER ==
[~2019-04-17] VITALS: Ht 165.1 cm; Wt 61.5 kg
--- OUTSIDE RECORDS SUMMARY | 2019-04-17 18:20 | XMS ---
PreManage Notification: AZALEA POLLARD Security Paving Bed Maker Events No recent Security Events currently on file CRITERIA MET - Group Notification - [facility] - Has Care Guidelines - PDMP - [facility] - 2 Visits in 30 Days CARE PROVIDERS ADIN ARIZA [facility] 04/28/2018-Current PHONE: Unknown Samir Ratliff DO Treatment Current PHONE: Unknown Edenilson has no Care Guidelines for this patient. Care History Medical/Surgical 02/06/2018 [facility] - CHW talked with Yarely from [facility]. Patient is hard to get care for [...] draws and urine collections be done at [facility] through [facility], orders would have to be [...] ED please contact Community Health WorkerNasrin at [phone]. These are guidelines and the provider should exercise clinical judgment when providing care. E.D. VISIT COUNT (12 MO.) 9 JEREMY Siddiqui TOTAL 9 NOTE: Visits indicate total known visits. ED/C VISIT TRACKING (12 MO.) 04/17/2019 18:18 [facility] [place] TYPE: Emergency COMPLAINT: - HEAD INJURY/ NO LOC 03/25/2019 19:47 [facility] [place] TYPE: Emergency COMPLAINT: - CUT FINGER DIAGNOSES: - Other foreign body or object entering through skin, initial encounter - Presence of cardiac pacemaker - Acquired absence of other specified parts of digestive tract - Laceration without foreign body of right middle finger without damage to nail, initial encounter - Hypothyroidism, unspecified - Unspecified dementia without behavioral disturbance - Other snf (current) drug therapy - Personal history of transient ischemic attack (TIA), and cerebral infarction without residual deficits - Unspecified atrial fibrillation 02/17/2019 00:35 [facility] [place] TYPE: Emergency COMPLAINT: - GLF DIAGNOSES: - Personal history of malignant neoplasm of unspecified digestive organ - Other terminal carman (current) drug therapy - Personal history of [...] behavioral disturbance - Hypothyroidism, unspecified - Other terminal carman (current) drug therapy - nursing home (current) use of anticoagulants - Epilepsy, unspecified, not intractable, without status epilepticus 07/07/2018 20:35 [facility] [place] TYPE: Emergency COMPLAINT: - ABD PAIN DIAGNOSES: - Unspecified dementia without behavioral disturbance - Restlessness and agitation - Hypothyroidism, unspecified - Other snf (current) drug therapy - Epilepsy, unspecified, not [...] part of head, initial encounter - Other terminal carman (current) drug therapy - Unspecified dementia without behavioral disturbance - nursing home (current) use of anticoagulants - Hypothyroidism, unspecified - Fall on same level, unspecified, initial encounter - Migraine, unspecified, not intractable, without status migrainosus 04/27/2018 10:19 [facility] [place] TYPE: Emergency COMPLAINT: - FALL DIAGNOSES: - Other terminal carman (current) drug therapy - Abrasion of scalp, initial encounter - Unspecified dementia without behavioral disturbance - Chronic atrial fibrillation - Fall on same level, unspecified, initial encounter - terminal carman (current) use of anticoagulants - Unspecified superficial injury of unspecified part of head, initial encounter - Hypothyroidism, unspecified - Unspecified injury of head, initial encounter - Epilepsy, unspecified, not intractable, without status epilepticus INPATIENT VISIT TRACKING (12 MO.) 06/23/2018 12:19 [facility] [place] TYPE: Medical Surgical COMPLAINT: - SUB ACUTE STROKE DIAGNOSES: - Unspecified atrial fibrillation - terminal carman (current) use of anticoagulants - Other malaise [...] Other encephalopathy - Cerebral infarction, unspecified - nursing home (current) use of opiate analgesic - Aphasia - terminal carman (current) use of anticoagulants - Unspecified atrial fibrillation - Do not resuscitate - Unspecified mood [affective] disorder - Epilepsy, unspecified, not intractable, without status epilepticus - Other snf (current) drug therapy - Repeated falls - Hypothyroidism, unspecified - Unsteadiness on feet - Vascular dementia without behavioral disturbance [email or web address]
[2019-04-17] MEDS ORDERED: COUMADIN2 MG PO (21:12)
[2019-04-17] MEDS ORDERED: WARFARIN SODIUM2 MG PO (21:13)
== END 2019-04-17 21:21 | disposition home or self-care (01) ==
LOC: ED 18:17
DX: S00.03XA Contusion of scalp, initial encounter (principal); I48.91 Unspecified atrial fibrillation; E03.9 Hypothyroidism, unspecified; Z86.73 Personal history of transient ischemic attack (TIA), and cerebral infarction without residual deficits; Z90.49 Acquired absence of other specified parts of digestive tract; Z95.0 Presence of cardiac pacemaker; Z79.899 Other long term (current) drug therapy; Z79.01 Long term (current) use of anticoagulants; W05.0XXA Fall from non-moving wheelchair, initial encounter
CPT/HCPCS: 70450; 99283-25

== ENCOUNTER 2019-08-10 21:16 | Emergency (ER) | payer MEDICARE, OTHER ==
[~2019-08-10] VITALS: Ht 165.1 cm; Wt 70.5 kg
[~2019-08-10 21:16] MED LIST changes: +ARTIFICIAL TEAR15 M1 OU; +BAZA PROTECT C142 GM TOP; +BISACODYL10 MG PR; +CAL-GEST200 MG PO; +CORN STARCH TOP; +COUMADIN2 MG PO; +NEOMYC-POLYM-D3.5 GM OS; +TUSSIN100 MG/51 PO
--- OUTSIDE RECORDS SUMMARY | 2019-08-10 21:18 | XMS ---
PreManage Notification: AZALEA POLLARD Security Director Of Advertising Sales Events No recent Security Events currently on file CRITERIA MET - Group Notification - PDMP CARE PROVIDERS ADIN ARIZA [facility] 04/28/2018-Current PHONE: Unknown Samir Ratliff DO Treatment Current PHONE: Unknown Edenilson has no Care Guidelines for this patient. Care History Medical/Surgical 02/06/2018 [facility] - CHW talked with Yarely from [facility]. Patient is hard to get care [...] draws and urine collections be done at [facility] through [facility], orders would have to [...] please contact Community Health Worker Nasrin at [phone]. These are guidelines and the provider should exercise clinical judgment when providing care. E.D. VISIT COUNT (12 MO.) 6 JEREMY Siddiqui TOTAL 6 NOTE: Visits indicate total known visits. ED/UCC VISIT TRACKING (12 MO.) 08/10/2019 21:16 [facility] [place] TYPE: Emergency COMPLAINT: - COUGH,POSS. FEVER 05/14/2019 22:34 [facility] [place] TYPE: Emergency COMPLAINT: - FEVER 04/17/2019 18:18 [facility] [place] TYPE: Emergency COMPLAINT: - HEAD INJURY/ NO LOC DIAGNOSES: - senior care (current) use of anticoagulants - Other ad terminal makeup operator (current) drug therapy - Hypothyroidism, unspecified - Unspecified atrial fibrillation - Prsnl hx of TIA (TIA), and cereb infrc w/o resid deficits - Fall from non-moving wheelchair, initial encounter - Presence of cardiac pacemaker - Acquired absence of other specified parts of digestive tract - Contusion of scalp, initial encounter - Unspecified injury of head, initial encounter 03/25/2019 19:47 [facility] [place] TYPE: Emergency COMPLAINT: - CUT FINGER DIAGNOSES: - Oth foreign body or object entering through skin, init - Presence of cardiac pacemaker - Acquired absence of other specified parts of digestive tract - Laceration w/o fb of r mid finger w/o damage to nail, init - Hypothyroidism, unspecified - Unspecified dementia without behavioral disturbance - Other assisted (current) drug therapy - Prsnl hx of TIA (TIA), and cereb infrc w/o resid deficits - Unspecified atrial fibrillation 02/17/2019 00:35 [facility] [place] TYPE: Emergency COMPLAINT: - GLF DIAGNOSES: - Personal history of malignant neoplasm of uns dgst org - Other assisted (current) drug therapy - Prsnl hx of TIA (TIA), and cereb infrc w/o resid deficits - Hypothyroidism, unspecified - Syncope and collapse - Unspecified dementia without behavioral disturbance - Fall on same level, unspecified, initial encounter - Presence of cardiac pacemaker - Epilepsy, unsp, not intractable, without status epilepticus - Unspecified atrial fibrillation 01/26/2019 21:01 [facility] [place] TYPE: Emergency COMPLAINT: - FALL/HEAD INJURY DIAGNOSES: - Unspecified atrial fibrillation - Fall from bed, initial encounter - 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 [place] TYPE: Medical Surgical COMPLAINT: - FEVER DIAGNOSES: - Unsp fb in resp tract, part unsp causing asphyx, init - Pneumonia due to Streptococcus pneumoniae - senior care (current) use of anticoagulants - Do not resuscitate - Urinary tract infection, site not specified - Hypothyroidism, unspecified - Hypo-osmolality and hyponatremia - Other ad terminal makeup operator (current) drug therapy - Hypo-osmolality and hyponatremia - Gastro-esophageal reflux disease without esophagitis - Do not resuscitate - Unspecified atrial fibrillation - Acute respiratory failure with hypoxia - Unspecified dementia without behavioral disturbance - Urinary tract infection, site not specified - Epilepsy, unsp, not intractable, without status epilepticus - Pneumonia, unspecified organism - Hypothyroidism, unspecified - Unsp fb in resp tract, part unsp causing asphyx, init - Other ad terminal makeup operator (current) drug therapy - Pneumonia due to Streptococcus pneumoniae - manager long term care (current) use of opiate analgesic - senior care (current) use of anticoagulants - Unspecified atrial fibrillation - Unspecified dementia without behavioral disturbance - senior care (current) use of opiate analgesic - Essential (primary) hypertension - Acute respiratory failure with hypoxia - Epilepsy, unsp, not intractable, without status epilepticus - Gastro-esophageal reflux disease without esophagitis - Essential (primary) hypertension [email or web address]
[2019-08-10] MEDS ORDERED: LEVAQUIN750 MG PO (23:39)
== END 2019-08-10 23:52 | disposition home or self-care (01) ==
LOC: ED 21:16
DX: J18.9 Pneumonia, unspecified organism (principal); I48.91 Unspecified atrial fibrillation; E03.9 Hypothyroidism, unspecified; Z86.73 Personal history of transient ischemic attack (TIA), and cerebral infarction without residual deficits; Z95.0 Presence of cardiac pacemaker; Z79.01 Long term (current) use of anticoagulants; Z79.899 Other long term (current) drug therapy
CPT/HCPCS: 71045; 80053; 81001; 85025; 87502; 99283-25

== ENCOUNTER 2019-08-17 17:59 | Emergency (ER) | payer MEDICARE, OTHER ==
[~2019-08-17] VITALS: Ht 165.1 cm; Wt 70.5 kg
[~2019-08-17 17:59] MED LIST changes: +LEVAQUIN750 MG PO
--- OUTSIDE RECORDS SUMMARY | 2019-08-17 18:02 | XMS ---
PreManage Notification: AZALEA POLLARD Security Balance Staff Inspector Events No recent Security Events currently on file CRITERIA MET - Group Notification - PDMP - [facility] - 2 Visits in 30 Days CARE PROVIDERS ADIN ARIZA [facility] 04/28/2018-Current PHONE: Unknown Samir Ratliff DO Treatment Current PHONE: Unknown Edenilson has no Care Guidelines for this patient. Care History Medical/Surgical 02/06/2018 [facility] - CHW talked with Yarely from [facility]. Patient is hard to get [...] draws and urine collections be done at [facility] through [facility], orders would have [...] ED please contact Community Health WorkerNasrin at [phone]. These are guidelines and the provider should exercise clinical judgment when providing care. E.D. VISIT COUNT (12 MO.) 7 JEREMY Siddiqui TOTAL 7 NOTE: Visits indicate total known visits. ED/C VISIT TRACKING (12 MO.) 08/17/2019 18:00 [facility] [place] TYPE: Emergency COMPLAINT: - HIGH BP 08/10/2019 21:16 [facility] [place] TYPE: Emergency COMPLAINT: - COUGH,POSS. FEVER DIAGNOSES: - Hypothyroidism, unspecified - retirement (current) use of anticoagulants - Pneumonia, unspecified organism - Other assisted (current) drug therapy - Unspecified atrial fibrillation - Presence of cardiac pacemaker - Cough - Prsnl hx of TIA (TIA), and cereb infrc w/o resid deficits 05/14/2019 22:34 [facility] [place] TYPE: Emergency COMPLAINT: - FEVER 04/17/2019 18:18 [facility] [place] TYPE: Emergency COMPLAINT: - HEAD INJURY/ NO LOC DIAGNOSES: - ferry terminal supervisor (current) use of anticoagulants - Other assisted (current) drug therapy - Hypothyroidism, unspecified - [...] - Personal history of malignant neoplasm of [facility] - Other assisted (current) drug therapy - [...] behavioral disturbance - Hypothyroidism, unspecified - Other lobsterman (current) drug therapy - retirement (current) use of anticoagulants - Epilepsy, unsp, not intractable, without status epilepticus INPATIENT VISIT TRACKING (12 MO.) 05/15/2019 09:39 [facility] [place] TYPE: Medical Surgical COMPLAINT: - FEVER DIAGNOSES: - Unsp fb in resp tract, part unsp causing asphyx, init - Pneumonia due to Streptococcus pneumoniae - retirement (current) use of anticoagulants - Do not resuscitate - Urinary tract infection, site not specified - Hypothyroidism, unspecified - Hypo-osmolality and hyponatremia - Other assisted (current) drug therapy - Hypo-osmolality and hyponatremia [...] part unsp causing asphyx, init - Other assisted (current) drug therapy - Pneumonia due to Streptococcus pneumoniae - ferry terminal supervisor (current) use of opiate analgesic - ferry terminal supervisor (current) use of anticoagulants - Unspecified atrial fibrillation - Unspecified dementia without behavioral disturbance - retirement (current) use of opiate analgesic - Essential (primary) hypertension - Acute respiratory failure with hypoxia - Epilepsy, unsp, not intractable, without status epilepticus - Gastro-esophageal reflux disease without esophagitis - Essential (primary) hypertension [email or web address]
[2019-08-17] MEDS ORDERED: DOXYCYCLINE HY100 M3 PO (18:29)
[2019-08-17] MEDS ORDERED: ONDANSETRON ODT8 MG PO (18:51)
== END 2019-08-17 19:14 | disposition home or self-care (01) ==
LOC: ED 17:59
DX: R11.2 Nausea with vomiting, unspecified (principal); I48.91 Unspecified atrial fibrillation; Z86.73 Personal history of transient ischemic attack (TIA), and cerebral infarction without residual deficits; G40.909 Epilepsy, unspecified, not intractable, without status epilepticus; E03.9 Hypothyroidism, unspecified; F03.90 Unspecified dementia, unspecified severity, without behavioral disturbance, psychotic disturbance, mood disturbance, and anxiety; Z88.1 Allergy status to other antibiotic agents; Z79.899 Other long term (current) drug therapy; Z79.01 Long term (current) use of anticoagulants; Z79.891 Long term (current) use of opiate analgesic
CPT/HCPCS: 99283

== ENCOUNTER 2019-09-20 22:58 | Emergency (ER) | payer MEDICARE, OTHER ==
[~2019-09-20] VITALS: Ht 165.1 cm; Wt 70.5 kg
[~2019-09-20 22:58] MED LIST changes: +DOXYCYCLINE HY100 M3 PO; +ONDANSETRON ODT8 MG PO
--- OUTSIDE RECORDS SUMMARY | 2019-09-20 23:00 | XMS ---
PreManage Notification: AZALEA POLLARD Security Yarn Skeins Examiner Events No recent Security Events currently on file CRITERIA MET - Group Notification - 6 ED Visits in 6 Months - PDMP CARE PROVIDERS ADIN ARIZA [facility] 04/28/2018-Current PHONE: Unknown Samir Ratliff DO Treatment Current PHONE: Unknown Edenilson has no Care Guidelines for this patient. Care History Medical/Surgical 02/06/2018 [facility] - CHW talked with Yarely from [facility]. Patient is hard to get care [...] and urine collections be done at [facility] through [facility], orders would have to [...] ED please contact Community Health WorkerNasrin at [phone]. These are guidelines and the provider should exercise clinical judgment when providing care. E.D. VISIT COUNT (12 MO.) 8 JEREMY Siddiqui TOTAL 8 NOTE: Visits indicate total known visits. ED/C VISIT TRACKING (12 MO.) 09/20/2019 22:58 [facility] [place] TYPE: Emergency COMPLAINT: - SOB 08/17/2019 18:00 [facility] [place] TYPE: Emergency COMPLAINT: - HIGH BP DIAGNOSES: - Other halfway (current) drug therapy - Unspecified dementia without behavioral disturbance - adjunct faculty for medical terminology (current) use of anticoagulants - longterm (current) use of opiate analgesic - Prsnl hx of TIA (TIA), and cereb infrc w/o resid deficits - Epilepsy, unsp, not intractable, without status epilepticus - Unspecified atrial fibrillation - Allergy status to other antibiotic agents status - Hypothyroidism, unspecified - Nausea with vomiting, unspecified 08/10/2019 21:16 [facility] [place] TYPE: Emergency COMPLAINT: - COUGH,POSS. FEVER DIAGNOSES: - Hypothyroidism, unspecified - adjunct faculty for medical terminology (current) use of anticoagulants - Pneumonia, unspecified organism - Other halfway (current) drug therapy - Unspecified atrial fibrillation - Presence of cardiac pacemaker - Cough - Prsnl hx of TIA (TIA), and cereb infrc w/o resid deficits 05/14/2019 22:34 [facility] [place] TYPE: Emergency COMPLAINT: - FEVER 04/17/2019 18:18 [facility] [place] TYPE: Emergency COMPLAINT: - HEAD INJURY/ NO LOC DIAGNOSES: - longterm (current) use of anticoagulants - Other halfway (current) drug therapy - Hypothyroidism, unspecified - [...] Unspecified dementia without behavioral disturbance - Other halfway (current) drug therapy - Prsnl hx of TIA (TIA), and cereb infrc w/o resid deficits - Unspecified atrial fibrillation 02/17/2019 00:35 [facility] [place] TYPE: Emergency COMPLAINT: - GLF DIAGNOSES: - Personal history of malignant neoplasm of unsp dgstv org - Other halfway (current) drug therapy - Prsnl hx of [...] - Other halfway (current) drug therapy - longterm (current) use of anticoagulants - Epilepsy, unsp, not intractable, without status epilepticus INPATIENT VISIT TRACKING (12 MO.) 05/15/2019 09:39 [facility] [place] TYPE: Medical Surgical COMPLAINT: - FEVER DIAGNOSES: - Unsp fb in resp tract, part unsp causing asphyx, init - Pneumonia due to Streptococcus pneumoniae - longterm (current) use of anticoagulants - Do not resuscitate - Urinary tract infection, site not specified - Hypothyroidism, unspecified - Hypo-osmolality and hyponatremia - Other adjunct faculty for medical terminology (current) drug therapy - Hypo-osmolality and hyponatremia [...] part unsp causing asphyx, init - Other halfway (current) drug therapy - Pneumonia due to Streptococcus pneumoniae - longterm (current) use of opiate analgesic - adjunct faculty for medical terminology (current) use of anticoagulants - Unspecified atrial fibrillation - Unspecified dementia without behavioral disturbance - longterm (current) use of opiate analgesic - Essential (primary) hypertension - Acute respiratory failure with hypoxia - Epilepsy, unsp, not intractable, without status epilepticus - Gastro-esophageal reflux disease without esophagitis - Essential (primary) hypertension [email or web address]
== END 2019-09-21 00:11 | disposition home or self-care (01) ==
LOC: ED 22:58
DX: R09.02 Hypoxemia (principal); G40.909 Epilepsy, unspecified, not intractable, without status epilepticus; I48.91 Unspecified atrial fibrillation; E03.9 Hypothyroidism, unspecified; Z86.73 Personal history of transient ischemic attack (TIA), and cerebral infarction without residual deficits; Z88.1 Allergy status to other antibiotic agents; Z79.899 Other long term (current) drug therapy; Z79.01 Long term (current) use of anticoagulants
CPT/HCPCS: 99284

== ENCOUNTER 2020-01-18 17:05 | Observation (INO) | payer MEDICARE, OTHER ==
[~2020-01-18] VITALS: Ht 165.1 cm; Wt 53.9 kg
[~2020-01-18 17:05] MED LIST changes: +NEO-POLYCIN EY3.5 GM OS; -NEOMYC-POLYM-D3.5 GM OS
--- OUTSIDE RECORDS SUMMARY | 2020-01-18 17:08 | XMS ---
PreManage Notification: AZALEA POLLARD Security Swift Tender Events No recent Security Events currently on file CRITERIA MET - Group Notification - History of Sepsis Dx - PDMP CARE PROVIDERS ADIN ARIZA [facility] 04/28/2018-Current PHONE: [phone] Edenilson has no Care Guidelines for this patient. Care History Medical/Surgical 02/06/2018 [facility] - CHW talked with Yarely from [facility]. Patient is hard to get [...] draws and urine collections be done at [facility] through [facility], orders would have [...] ED please contact Community Health WorkerNasrin at [phone]. These are guidelines and the provider should exercise clinical judgment when providing care. E.D. VISIT COUNT (12 MO.) 9 JEREMY Siddiqui TOTAL 9 NOTE: Visits indicate total known visits. ED/UCC VISIT TRACKING (12 MO.) 01/18/2020 17:05 [facility] [place] TYPE: Emergency COMPLAINT: - ABNORMAL LAB RESULTS 09/20/2019 22:[address] [facility] [place] TYPE: Emergency COMPLAINT: - SOB DIAGNOSES: - Epilepsy, unspecified, not intractable, without status epilep - Unspecified atrial fibrillation - Hypoxemia - Hypothyroidism, unspecified - Personal history of transient ischemic attack (TIA), and cere - assisted (current) use of anticoagulants - Other longterm (current) drug therapy - Weakness - Allergy status to other antibiotic agents status 08/17/2019 18:00 [facility] [place] TYPE: Emergency COMPLAINT: - HIGH BP DIAGNOSES: - Other manager intermediate (current) drug therapy - Unspecified dementia without behavioral disturbance - assisted (current) use of anticoagulants - terminal worker (current) use of opiate analgesic - Personal history of transient ischemic attack (TIA), and cere - Epilepsy, unspecified, not intractable, without status epilep - Unspecified atrial fibrillation - Allergy status to other antibiotic agents status - Hypothyroidism, unspecified - Nausea with vomiting, unspecified 08/10/2019 21:[address] [facility] [place] TYPE: Emergency COMPLAINT: - COUGH,POSS. FEVER DIAGNOSES: - Hypothyroidism, unspecified - terminal worker (current) use of anticoagulants - Pneumonia, unspecified organism - Other manager intermediate (current) drug therapy - Unspecified atrial fibrillation - Presence of cardiac pacemaker - Cough - Personal history of transient ischemic attack (TIA), and cere 05/14/2019 22:34 [facility] [place] TYPE: Emergency COMPLAINT: - FEVER 04/17/2019 18:18 [facility] [place] TYPE: Emergency COMPLAINT: - HEAD INJURY/ NO LOC DIAGNOSES: - terminal worker (current) use of anticoagulants - Other longterm (current) drug therapy - Hypothyroidism, unspecified - Unspecified atrial fibrillation - Personal history of transient ischemic attack (TIA), and cere - Fall from non-moving wheelchair, initial encounter - Presence of cardiac pacemaker - Acquired absence of other specified parts of digestive tract - Contusion of scalp, initial encounter - Unspecified injury of head, initial encounter 03/25/2019 19:47 [facility] [place] TYPE: Emergency COMPLAINT: - CUT FINGER DIAGNOSES: - Other foreign body or object entering through skin, initial e - Presence of cardiac pacemaker - Acquired absence of other specified parts of digestive tract - Laceration without foreign body of right middle finger withou - Hypothyroidism, unspecified - Unspecified dementia without behavioral disturbance - Other longterm (current) drug therapy - Personal history of transient ischemic attack (TIA), and cere - Unspecified atrial fibrillation 02/17/2019 00:35 [facility] [place] TYPE: Emergency COMPLAINT: - GLF DIAGNOSES: - Personal history of malignant neoplasm of unspecified digesti - Other manager intermediate (current) drug therapy - Personal history of transient ischemic attack (TIA), and cere - Hypothyroidism, unspecified - Syncope and collapse - Unspecified dementia without behavioral disturbance - Fall on same level, unspecified, initial encounter - Presence of cardiac pacemaker - Epilepsy, unspecified, not intractable, without status epilep - Unspecified atrial fibrillation 01/26/2019 21:01 [facility] [place] TYPE: Emergency COMPLAINT: - FALL/HEAD INJURY DIAGNOSES: - Unspecified atrial fibrillation - Fall from bed, initial encounter - 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 [place] TYPE: Medical Surgical COMPLAINT: - FEVER DIAGNOSES: - Unspecified foreign body in respiratory tract, part unspecifi - Pneumonia due to Streptococcus pneumoniae - terminal worker (current) use of anticoagulants - Do not resuscitate - Urinary tract infection, site not specified - Hypothyroidism, unspecified - Hypo-osmolality and hyponatremia - Other manager intermediate (current) drug therapy - Hypo-osmolality and hyponatremia - Gastro-esophageal reflux disease without esophagitis - Do not resuscitate - Unspecified atrial fibrillation - Acute respiratory failure with hypoxia - Unspecified dementia without behavioral disturbance - Urinary tract infection, site not specified - Epilepsy, unspecified, not intractable, without status epilep - Pneumonia, unspecified organism - Hypothyroidism, unspecified - Unspecified foreign body in respiratory tract, part unspecifi - Other manager intermediate (current) drug therapy - Pneumonia due to Streptococcus pneumoniae - assisted (current) use of opiate analgesic - terminal worker (current) use of anticoagulants - Unspecified atrial fibrillation - Unspecified dementia without behavioral disturbance - terminal worker (current) use of opiate analgesic - Essential (primary) hypertension - Acute respiratory failure with hypoxia - Epilepsy, unspecified, not intractable, without status epilep - Gastro-esophageal reflux disease without esophagitis - Essential (primary) hypertension [email or web address]
[2020-01-18] MEDS ORDERED: LEVOTHYROXINE200 MCG PO (17:27)
[2020-01-18] MEDS ORDERED: MELATONIN10 MG PO (17:28)
[2020-01-19] MEDS ORDERED: ATORVASTATIN CA10 MG PO (11:14)
[2020-01-19] MEDS ORDERED: PRESERVISION A1 EACH PO (11:21)
[2020-01-19] MEDS ORDERED: HYDROCODON-ACE1 EA10 PO (11:28)
[2020-01-19] MEDS ORDERED: ONDANSETRON ODT8 MG PO (11:33)
[2020-01-19] MEDS ORDERED: TUSSIN100 MG/51 PO (11:35)
== END 2020-01-22 14:00 | disposition home or self-care (01) ==
LOC: ED 17:05 → MS 17:06
PROVIDERS: ADMIT Student in an Organized Health Care Education/Training Program
DX: E87.0 Hyperosmolality and hypernatremia (principal); R79.1 Abnormal coagulation profile; I48.91 Unspecified atrial fibrillation; F03.90 Unspecified dementia, unspecified severity, without behavioral disturbance, psychotic disturbance, mood disturbance, and anxiety; E87.6 Hypokalemia; E03.9 Hypothyroidism, unspecified; E78.5 Hyperlipidemia, unspecified; K21.9 Gastro-esophageal reflux disease without esophagitis; G40.909 Epilepsy, unspecified, not intractable, without status epilepticus; Z79.01 Long term (current) use of anticoagulants; Z79.899 Other long term (current) drug therapy; Z88.1 Allergy status to other antibiotic agents
CPT/HCPCS: 36415; 80048; 80053; 80162; 81001; 83735; 84100; 84439; 84443; 85025; 85610; 96361; 96365; 96366; 99284; G0378; J3480; J7060; J7070; J7121